=== PATIENT | male | born 1965 | race Caucasian/White ===

== ENCOUNTER 2017-02-16 10:07 | Emergency (ER) | payer MEDICARE, MEDICAID ==
--- NOTE | 2017-02-16 11:08 | UC ---
General HPI - HPI Summary HPI Summary: The patient comes in today for: 1. "low blood pressure and labored breathing": Onset: 7 AM Palliative/provocative: Nothing made his symptoms better or worse. Quality: No problems at this time. Region: Cardiovascular, and pulmonary systems. Severity: no pain. Time: Transient. Associated symptoms: Event: The patient [place]. His usual blood pressure runs: 100-154/59-100 in the 2016 year. In 2014 to 2016: 86-177/53-123. There was several readings this morning. 86/61 and 90/60 at about 7 to 7:30 AM. He was acting "strange" (he was making "vocalizations" like he was going to have a seizure but he did not. He "was not acting like himself." This went on for 30 minutes. When the wire coating machine operator was asked to mimic his "labored breathing" she only made normal breaths but in a way that was more audible like a sigh. He has been acting normally since. He has not had any coughing. No fevers. Non-verbal, but vocal. He is acting normally now. * - History of Current Complaint Chief Complaint: UCGeneralIllness Stated Complaint: LOWERED BLOOD PRESSURE DIFF BREATHING Time Seen by Provider: 02/16/17 10:22 Hx Obtained From: Patient, Family/Hot Box Spotter - Allergy/Home Medications Allergies/Adverse Reactions: Allergies Allergy/AdvReac Type Severity Reaction Status Date / Time Levofloxacin [From Levaquin] Allergy Intermediate Unknown Verified 02/16/17 10: 28 Reaction Details Home Medications: Home Medications Nutritional Supplements [Ernesto] 1 pow PO BID 02/16/17 [History Confirmed ] PMH/Surg Hx/FS Hx/Imm Hx Previously Healthy: No - intellectual development delay, seizures, 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, congenital hydrocephalu - Surgical History Surgical History: Yes Surgery Procedure, Year, and Place: Shunt - Family History Known Family History: Positive: None - Social History Alcohol Use: None Substance Use Type: None Smoking Status (MU): Never Smoked Tobacco Have You Smoked in the Last Year: No Review of Systems Constitutional: Negative Skin: Negative Eyes: Negative ENT: Negative Respiratory: Negative Cardiovascular: Negative Gastrointestinal: Negative All Other Systems Reviewed And Are Negative: Yes Physical Exam Triage Information Reviewed: Yes Completion Of Physical Exam Limited Due To: Altered Mental Status - He only vocalised when I tried to examine him. He was not cooperative. Appearance: Well-Appearing, No Pain Distress Vital Signs: Initial Vital Signs Temp 97.7 F 02/16/17 10:21 Pulse 60 02/16/17 10:21 Resp 16 02/16/17 10:21 BP 83/60 02/16/17 10:21 Pulse Ox 97 02/16/17 10:21 Vital Signs Reviewed: Yes Eyes: Positive: Conjunctiva Clear. Negative: Discharge ENT: Positive: Hearing grossly normal, Other: - Mucous membraines pink and moist. No erythema or edema of the ear canals. Dental: Positive: Other: - No drooling or lip lesions. Neck: Positive: Supple, Nontender Respiratory: Positive: Chest non-tender, Lungs clear, No respiratory distress, No accessory muscle use. Negative: Rhonchi, Wheezing Cardiovascular: Positive: RRR Diagnostics - Laboratory Diagnostic Studies Completed/Ordered: EKG: Rate: 60. Rhythm: sinus. [place]: 30 degrees, no rotation. Ectopy: NOne. Acute changes: None Re-Evaluation - Re-Evaluation First Eval Change: Unchanged - Repeat blood pressure: 90/60 Course/Dx - Course Course Of Treatment: The wire coating machine operator was told that the EKG did not show an obvious reason for his "labored breathing" episode and persistent hypotension and recommended that he be further evaluated. The wire coating machine operator states that they would prefer for the patient to have an ER evaluation at [place]. I talked to the patient's mother on the phone about this. - Differential Dx - Multi-Symptom Provider Diagnoses: Hypotension. Dyspnea episode resolved. - Physician Notifications Discussed Patient Care With: Sonali Fonseca NP [facility]. Time Discussed With Above Provider: 12:23 Discharge - Discharge Plan Condition: Stable Disposition: AGAINST MEDICAL ADVICE Additional Instructions: Please go directly to the [facility] at this time.
[2017-02-16 12:27] VITALS: BP 84/57
== END 2017-02-16 12:46 | disposition short-term general hospital (02) ==
LOC: UCCORT 10:07
DX: I95.9 Hypotension, unspecified (principal)
CPT/HCPCS: 93005; 99213; G0463

== ENCOUNTER 2017-02-19 17:50 | Inpatient (IN) | payer MEDICARE, MEDICAID ==
[2017-02-19 18:43] LABS: Hematocrit 42 % (42-52); Hemoglobin 14.1 g/dl (14.0-18.0); Mean Corpuscular HGB Conc 34 g/dl (31-36); Mean Corpuscular Hemoglobin 32 pg (27-31); Mean Corpuscular Volume 96 fL (80-94); Mean Platelet Volume 7 um3 (7.4-10.4); Red Blood Count 4.35 10^6/ul (4.0-5.4); Red Cell Distribution Width 14 % (10.5-15)
--- NOTE | 2017-02-19 18:49 | RAD ---
HISTORY: Shortness of breath COMPARISONS: February 17, 2013 VIEWS:1: Single frontal portable view of the chest at 6:36 PM FINDINGS: LINES AND TUBES: Shunt tubing is noted along the right chest CARDIOMEDIASTINAL SILHOUETTE: The cardiac silhouette is enlarged. The cardiomediastinal silhouette is otherwise normal for portable technique. PLEURA: There is a large right pleural effusion LUNG PARENCHYMA: There is a diffuse reticular pattern with prominence of the central pulmonary vasculature ABDOMEN: The upper abdomen is clear. There is no subphrenic gas. BONES AND SOFT TISSUES: No bone or soft tissue abnormalities are noted. IMPRESSION: 1. CARDIOMEGALY WITH PULMONARY INTERSTITIAL EDEMA. 2. LARGE RIGHT EFFUSION
[2017-02-19] MEDS ORDERED: Azithromycin IV(*) 250 MG in NS 0.9% 250 ML* 250 ML IVPB ONE (18:54)
[2017-02-19] MEDS ORDERED: Azithromycin IV(*) 500 MG in NS 0.9% 250 ML* 250 ML IVPB ONE (18:55)
[2017-02-19] MEDS ORDERED: cefTRIAXone(*) 1 GM in NS 0.9% 50 ML* 50 ML IVPB ONE (18:55)
--- NOTE | 2017-02-19 19:47 | HP ---
H&P (Free Text) History and Physical: PCP: Pearl Zaman MD Neurology: Tyson Araiza MD Date/Time of Evaluation: 02/19/20171944 CC: "not breathing for 5 minutes" HPI: [facility]di [facility] 51[facility] profound congenital mental retardation who was admitted to [facility] through today for pneumonia. He was discharged back to the [facility] this AM. His aide is present who states that he was being weighed in a [place] lift and became flushed in the face which is not unusual for him as he dislikes being in the lift. However, upon exiting the lift he appeared to be not breathing for ~5minutes, but was able to open his eyes and produce sound. 911 was called and advised against CPR. EMS arrived and transported to [facility] for evaluation. Their report is not currently available, but per ED staff they did not report respiratory distress upon arrival. 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 x4 seizure disorder profoundly mentally challenged Ambulatory Orders Chlorhexidine MOUTHWASH 0.12%* [Peridex Mouth Wash 0.12%*] 12/31/12 carBAMazepine TAB(*) [Tegretol TAB(*)] 400 mg PO BID 12/31/12 Calcium [Elite Calcium] 500 mg PO BID 07/17/16 Cholecalciferol [Vitamin D3] 1,000 unit PO DAILY 07/17/16 Folic Acid 1 mg PO DAILY 07/17/16 Multiple Vitamins W/ Minerals [Multivitamin Men] 1 tab 07/17/16 Nutritional Supplements [Ernesto] 1 pow PO BID 02/16/17 carBAMazepine TAB(*) 600 mg PO DAILY 02/19/17 Allergies Levofloxacin [From Levaquin] Allergy (Intermediate, Verified 02/16/17 10:28) Unknown Reaction Details SocHx: not tobacco, alcohol, or recreational drug HX; lives at the [facility] , non-ambulatory at baseline; full code status FamHx: positive for HTN ROS: as above, otherwise reviewed and all were negative Constitutional: NAD, normally developed, overweight white male vitals: Vital Signs Temp 36.2 C 02/19/17 18:09 Pulse 59 02/19/17 18:09 Resp 18 02/19/17 18:09 BP 161/101 02/19/17 18:09 Pulse Ox 95 02/19/17 18:39 Intake & Output 02/18/17 02/19/17 02/19/17 23:59 11:59 23:59 Weight 61.235 kg HEENM: atraumatic, microcephaly; sclera/conjunctiva: non-icteric/clear; hearing : unable to adequately assess; oropharynx: clear, mucosa tacky Neck: soft tissue: no nuchal rigidity; thyroid: normal Pulmonary: poor inspiratory effort, diminished B bases, fair aeration, no accessory muscle use CV: RR/RR, normal S1S2, no carotid bruit, no jugular venous distention, 2+ B DP/ PT, no edema Abdominal: soft, non-distended, non-tender, no rebound/guarding/rigidity, normoactive bowel sounds, no hepatosplenomegaly or masses, no costovertebral angle tenderness Musculoskeletal: general: grossly intact; gait: non-ambulatory at baseline Integumental: normal appearance and texture of exposed skin Psychiatric orientation: AA & disoriented affect: calm mood: acquiescent eye contact: poor content: absent responses: guttural vocalizations insight: poor to absent Testing: Lab Results 02/19/17 02/19/17 02/19/17 Range/Units 18:25 18:25 18:25 WBC 7.0 (3.5-10.8) 10^3/ul RBC 4.35 (4.0-5.4) 10^6/ul Hgb 14.1 (14.0-18.0) g/dl Hct 42 (42-52) % MCV 96 H (80-94) fL MCH 32 H (27-31) pg MCHC 34 (31-36) g/dl RDW 14 (10.5-15) % Plt Count 152 (150-450) 10^3/ul MPV 7 L (7.4-10.4) um3 Neut % (Auto) 77.7 (38-83) % Lymph % (Auto) 12.6 L (25-47) % Izard % (Auto) 5.8 (1-9) % Eos % (Auto) 2.7 (0-6) % Baso % (Auto) 1.2 (0-2) % Absolute Neuts (auto) 5.5 (1.5-7.7) 10^3/ul Absolute Lymphs (auto) 0.9 L (1.0-4.8) 10^3/ul Absolute Monos (auto) 0.4 (0-0.8) 10^3/ul Absolute Eos (auto) 0.2 (0-0.6) 10^3/ul Absolute Basos (auto) 0.1 (0-0.2) 10^3/ul Absolute Nucleated RBC 0 10^3/ul Nucleated RBC % 0 Sodium (133-145) mmol/L Potassium (3.5-5.0) mmol/L Chloride (101-111) mmol/L Carbon Dioxide (22-32) mmol/L Anion Gap (2-11) mmol/L BUN (6-24) mg/dL Creatinine (0.67-1.17) mg/dL Est GFR ( Amer) (>60) Est GFR (Non-Af Amer) (>60) BUN/Creatinine Ratio (8-20) Glucose (70-100) mg/dL Lactic Acid 0.8 (0.5-2.0) mmol/L Calcium (8.6-10.3) mg/dL Total Bilirubin (0.2-1.0) mg/dL AST (13-39) U/L ALT (7-52) U/L Alkaline Phosphatase (34-104) U/L Total Creatine Kinase (10-223) U/L Troponin I (<0.04) ng/mL C-Reactive Protein (< 5.00) mg/L B-Natriuretic Peptide 121 H ( - 100) pg/mL Total Protein (6.4-8.9) g/dL Albumin (3.2-5.2) g/dL Globulin (2-4) g/dL Albumin/Globulin Ratio (1-3) /06/28 Range/Units 19:30 WBC (3.5-10.8) 10^3/ul RBC (4.0-5.4) 10^6/ul Hgb (14.0-18.0) g/dl Hct (42-52) % MCV (80-94) fL MCH (27-31) pg MCHC (31-36) g/dl RDW (10.5-15) % Plt Count (150-450) 10^3/ul MPV (7.4-10.4) um3 Neut % (Auto) (38-83) % Lymph % (Auto) (25-47) % Izard % (Auto) (1-9) % Eos % (Auto) (0-6) % Baso % (Auto) (0-2) % Absolute Neuts (auto) (1.5-7.7) 10^3/ul Absolute Lymphs (auto) (1.0-4.8) 10^3/ul Absolute Monos (auto) (0-0.8) 10^3/ul Absolute Eos (auto) (0-0.6) 10^3/ul Absolute Basos (auto) (0-0.2) 10^3/ul Absolute Nucleated RBC 10^3/ul Nucleated RBC % Sodium 130 L (133-145) mmol/L Potassium 4.0 (3.5-5.0) mmol/L Chloride 100 L (101-111) mmol/L Carbon Dioxide 25 (22-32) mmol/L Anion Gap 5 (2-11) mmol/L BUN 6 (6-24) mg/dL Creatinine 0.40 L (0.67-1.17) mg/dL Est GFR ( Amer) 289.4 (>60) Est GFR (Non-Af Amer) 225.0 (>60) BUN/Creatinine Ratio 15.0 (8-20) Glucose 91 (70-100) mg/dL Lactic Acid (0.5-2.0) mmol/L Calcium 8.3 L (8.6-10.3) mg/dL Total Bilirubin 0.50 (0.2-1.0) mg/dL AST 18 (13-39) U/L ALT 17 (7-52) U/L Alkaline Phosphatase 88 (34-104) U/L Total Creatine Kinase 103 (10-223) U/L Troponin I 0.01 (<0.04) ng/mL C-Reactive Protein 11.75 H (< 5.00) mg/L B-Natriuretic Peptide ( - 100) pg/mL Total Protein 5.9 L (6.4-8.9) g/dL Albumin 3.2 (3.2-5.2) g/dL Globulin 2.7 (2-4) g/dL Albumin/Globulin Ratio 1.2 (1-3) ECG, personally reviewed: sinus RBBB rate 67, no ischemia CXR, personally reviewed: IMPRESSION: 1. CARDIOMEGALY WITH PULMONARY INTERSTITIAL EDEMA. 2. LARGE RIGHT EFFUSION Impression: 51M presenting with brief episode of AMS & SOB discharged this AM from [place] after 3days TX for R pneumonia & pleural effusion DIAGNOSIS & PLAN Primary RLL pneumonia w/ large para-pneumonic effusion : given lactic acid of 0.8, doubt the history of "not breathing x5 minutes" : obtain records from [facility] : IV ceftriaxone & azithromycin : IVFs : supplemental oxygen : hold blood & sputum CX as he has reportedly been on ABX x3 days : check urine Legionella & S pneumo antigens : bedside dysphagia screening : consider pulmonology consult, if clinically warranted upon review of above : supportive care Secondary seizure disorder : continue carbamazepine once reconciled hydrcephalus HX 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
[2017-02-19 19:59] LABS: Albumin 3.2 g/dL (3.2-5.2); C Reactive Protein 11.75 mg/L (< 5.00); Calcium 8.3 mg/dL (8.6-10.3); EGFR African American 289.4 (>60); Globulin 2.7 g/dL (2-4); Total Bilirubin 0.5 mg/dL (0.2-1.0); Total Protein 5.9 g/dL (6.4-8.9)
[2017-02-19 20:02] LABS: Troponin I 0.01 ng/mL (<0.04)
[2017-02-19] MEDS ORDERED: Acetaminophen TAB* 325 MG PO PRN (20:41)
[2017-02-19] MEDS ORDERED: Ondansetron INJ* 2 MG/ML VIAL IV PRN (20:42)
[2017-02-19] MEDS ORDERED: carBAMazepine TAB(*) 200 MG PO SCH (21:00)
[2017-02-19] MEDS: Docusate CAP* 100 MG PO SCH (22:29)
[2017-02-19] MEDS: [UNRECOGNIZED DRUG - OTHER] PO SCH (22:33)
[2017-02-20] MEDS: Heparin VIAL(*) 5000 UNITS/ML VIAL (FIVE THOUSAND) SUBCUT SCH ×3 (05:12→21:30)
[2017-02-20] MEDS: Omeprazole CAP* 20 MG PO SCH (05:12)
[2017-02-20] MEDS: NS 0.9% 1000 ML* 1,000 ML IV SCH ×2 (05:40→17:23)
[2017-02-20] MEDS: carBAMazepine TAB(*) 200 MG PO SCH ×3 (06:19→18:10)
[2017-02-20 06:31] LABS: Hematocrit 38 % (42-52); Mean Corpuscular HGB Conc 34 g/dl (31-36); Mean Corpuscular Hemoglobin 33 pg (27-31); Mean Corpuscular Volume 96 fL (80-94); Mean Platelet Volume 7 um3 (7.4-10.4); Red Blood Count 3.97 10^6/ul (4.0-5.4); Red Cell Distribution Width 13 % (10.5-15); White Blood Count 6.3 10^3/ul (3.5-10.8)
[2017-02-20 06:33] LABS: BUN/Creatinine Ratio 10.8 (8-20); Calcium 8.2 mg/dL (8.6-10.3); EGFR African American 316.6 (>60); EGFR Non-African American 246.2 (>60); Potassium 3.6 mmol/L (3.5-5.0)
[2017-02-20] MEDS: [UNRECOGNIZED DRUG - OTHER] PO SCH (09:51)
[2017-02-20] MEDS: Docusate CAP* 100 MG PO SCH ×2 (09:53→20:36)
--- NOTE | 2017-02-20 17:22 | PN ---
Subjective Date of Service: 02/20/17 Interval History: . Interviewed and examined patient at bedside; Discussed case with Dr. Palmer ; Reviewed previous notes and radiology results; Also spoke with patient's mother and the staff at [facility]. Despite how "good" patient looks to me at present (O2 sats in high 90's on RA and breathing comfortably), the staff insist patient had outright respiratory arrest and looked horribly last night. For that reason alone, will keep patient an additional night to observe for similar event that was described. Also, mother questions HEEL VARNISHER shunt, which she states at one point was draining into his thorax...which might explain his R pleural effusion. Will get neurosurgery to evaluate patient as well. Family History: Unchanged from Admission Social History: Unchanged from Admission Past Medical History: Unchanged from Admission Objective Active Medications: . Acetaminophen (Tylenol Tab*) 650 mg PO Q6H PRN PRN Reason: FEVER/PAIN Carbamazepine (Tegretol Tab(*)) 600 mg PO 1900 [facility] Carbamazepine (Tegretol Tab(*)) 400 mg PO 0700,1200 [facility] Last Admin: 02/20/17 12:03 Dose: 400 mg Docusate Sodium (Colace Cap*) 200 mg PO BID [facility] Last Admin: 02/20/17 09:53 Dose: 200 mg Heparin Sodium (Porcine) (Heparin Vial(*)) 5,000 units SUBCUT Q8HR [facility] Last Admin: 02/20/17 13:52 Dose: 5,000 units Sodium Chloride (Ns 0.9% 1000 Ml*) 1,000 mls @ 125 mls/hr IV PER RATE [facility] Last Admin: 02/20/17 05:40 Dose: 125 mls/hr Ceftriaxone Sodium 1,000 mg/ (Sodium Chloride) 50 mls @ 200 mls/hr IVPB Q24H [facility] Azithromycin 500 mg/ Sodium (Chloride) 250 mls @ 250 mls/hr IVPB Q24H [facility] Melatonin (Melatonin (Nf)) 3 mg PO BEDTIME PRN; Protocol PRN Reason: Sleep Morphine Sulfate (Morphine Inj (Syringe)*) 1 mg IV Q2H PRN PRN Reason: air hunger/SOB Omeprazole (Prilosec Cap*) 20 mg PO DAILY@0600 [facility] Last Admin: 02/20/17 05:12 Dose: 20 mg Ondansetron HCl (Zofran Inj*) 4 mg IV Q6H PRN PRN Reason: NAUSEA . Vital Signs 02/20/17 15:38 Temperature 98.4 F Pulse Rate 86 Respiratory 16 Rate Blood Pressure 140/98 (mmHg) O2 Sat by Pulse 97 Oximetry Oxygen Devices in Use Now: None Appearance: NAD; DD Eyes: No Scleral Icterus Ears/Nose/Mouth/Throat: Clear Oropharnyx Neck: Trachea Midline, - - HEEL VARNISHER shunt evident Respiratory: - - diminished at R base c/w pleural effusion, otherwise clear! Cardiovascular: RRR Abdominal: No Hepatosplenomegaly Lymphatic: No Cervical Adenopathy Extremities: No Edema Skin: No Rash or Ulcers Neurological: - - DD noted, not communicative Lines/Tubes/Other Access: Clean, Dry and Intact Peripheral IV Nutrition: Taking PO's Result Diagrams: 02/20/17 06:05 02/20/17 06:05 Assess/Plan/Problems-Billing . Assessment: 51 yo man with DD, now with reported respiratory arrest, though he seems quite stable here. Patient recently admitted for PNA and R pleural effusion, though seems to be doing OK at present. No report of pulselessness. DDX: Vasovagal event, Apneic event, Mucus plug, Aspiration, Seizure. Current Medications: - Acetaminophen (Tylenol Tab) 650 mg PO Q6H PRN FEVER/PAIN - Carbamazepine (Tegretol Tab) 600 mg PO 1900 [facility] - Carbamazepine (Tegretol Tab) 400 mg PO 0700,1200 [facility] - Docusate Sodium (Colace Cap) 200 mg PO BID - Heparin Sodium (Porcine) (Heparin Vial) 5,000 units SUBCUT Q8HR - NS @ 125 mls/hr IV - Ceftriaxone 1,000 mg IVPB Q24H - Azithromycin 500 mg IVPB Q24H - Melatonin (Melatonin) 3 mg PO BEDTIME PRN Sleep - Morphine Sulfate (Morphine Inj (Syringe)) 1 mg IV Q2H PRN air hunger/SOB - Omeprazole (Prilosec Cap) 20 mg PO DAILY - Ondansetron HCl (Zofran Inj) 4 mg IV Q6H PRN NAUSEA . - Patient Problems (1) Respiratory arrest Current Visit: Yes Status: Acute Priority: High Code(s): R09.2 - RESPIRATORY ARREST Comment: - CXR shows pleural effusion -- is this related to this presentation? pulmonary htn? - Is the pleural effusion related to the HEEL VARNISHER shunt? -- rare, but possible-- will d/w radiology and neurosurgery. - Was the event in question a vasovagal or apneic episode or transient event ( i.e. mucus plug that dislodged, or aspiration event) such that it is resolved? (2) Cognitive developmental delay Current Visit: Yes Status: Acute Code(s): F81.9 - DEVELOPMENTAL DISORDER OF SCHOLASTIC SKILLS, UNSPECIFIED SNOMED Code(s): 796997692 (3) Seizure disorder Current Visit: Yes Status: Acute Code(s): G40.909 - EPILEPSY, UNSP, NOT INTRACTABLE, WITHOUT STATUS EPILEPTICUS SNOMED Code(s): 631559392
[2017-02-20 18:17] LABS: Carbamazepine 9.1 mcg/mL (4.0-12.0)
--- NOTE | 2017-02-20 18:28 | ED ---
Lorne Torres Aidan, scribed for Lul Diamond MD on 02/19/17 at 1826 . Shortness of Breath - HPI Summary HPI Summary: 51 y/o male presents to the ED via EMS with a complaint of acute, constant, moderate SOB according to EMS. He is coming from the [facility] in [facility]. Currently, he is hypertensive. The patient is nonverbal and developmentally disabled. 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 EMS, Still Present Timing: Constant Current Severity: Moderate Dyspnea At: Rest Aggrevating Factors: Nothing - unknown Alleviating Factors: Nothing - unknown Associated Signs & Symptoms: Negative - Pt is hypertensive - Allergy/Home Medications Allergies/Adverse Reactions: Allergies Allergy/AdvReac Type Severity Reaction Status Date / Time Levofloxacin [From Levaquin] Allergy Intermediate Unknown Verified 02/16/17 10: 28 Reaction Details Home Medications: Home Medications carBAMazepine TAB(*) 600 mg PO DAILY 02/19/17 [History Confirmed 02/19/17] PMH/Surg Hx/FS Hx/Imm Hx Previously Healthy: No - seizure disorder, hydrocephalus, constipation Neurological History: Reports: Hx Seizures - MR, SPEECH THERAPIST SHUNT, HYDROCEPHALUS, HYPONATREMIA - Surgical History Surgery Procedure, Year, and Place: Shunt Infectious Disease History: No Infectious Disease History: Denies: Traveled Outside the [place] in Last 30 Days - Family History Known Family History: Positive: Other - unknown, level 5 caviat - Social History Occupation: Disabled Lives: Assisted Living Alcohol Use: None Substance Use Type: Reports: None Smoking Status (MU): Never Smoked Tobacco Have You Smoked in the Last Year: No Review of Systems Constitutional: Negative Eyes: Negative ENT: Negative Positive: Other - hypertensive. Negative: Palpitations, Chest Pain Positive: Shortness Of Breath. Negative: Cough Gastrointestinal: Negative Genitourinary: Negative Musculoskeletal: Negative Skin: Negative Neurological: Negative Psychological: Normal All Other Systems Reviewed And Are Negative: Yes Physical Exam - Summary Physical Exam Summary: VITAL SIGNS: Reviewed. GENERAL: Patient is a well-developed and nourished (MALE OR FEMALE) who is lying comfortable in the stretcher. Patient is not in any acute respiratory distress. Patient is nonverbal. HEAD AND FACE: No signs of trauma. No ecchymosis, hematomas. No sinus tenderness. Positive microcephalus EYES: PERRLA, EOMI x 2, No injected conjunctiva, no nystagmus. EARS: Hearing grossly intact. Ear canals and tympanic membranes are within normal limits. MOUTH: Oropharynx within normal limits. NECK: Supple, trachea is midline, no adenopathy, no JVD, no carotid bruit, no c- spine tenderness, neck with full ROM. CHEST: Symmetric, no tenderness at palpation LUNGS: Clear to auscultation bilaterally. No wheezing, however there are crackles at the base of the lungs. CVS: Regular rate and rhythm, S1 and S2 present, no murmurs or gallops appreciated. ABDOMEN: Soft, non-tender. No signs of distention. No rebound no guarding, and no masses palpated. Bowel sounds are normal. EXTREMITIES: No cyanosis or clubbing. 1+ edema in legs bilaterally. He is contracted at his upper extremities. NEURO: Alert and oriented x 3. No acute neurological deficits. Speech is normal and follows commands. SKIN: Dry and warm Triage Information Reviewed: Yes Vital Signs On Initial Exam: Initial Vitals Temp Pulse Resp BP Pulse Ox 97.1 F 59 18 161/101 94 02/19/17 18:09 02/19/17 18:09 02/19/17 18:09 02/19/17 18:09 02/19/17 18:09 Vital Signs Reviewed: Yes Diagnostics - Vital Signs Vital Signs Temp Pulse Resp BP Pulse Ox 02/19/17 18:09 97.1 F 59 18 161/101 94 - Laboratory Lab Results: Lab Results 02/19/17 02/19/17 02/19/17 Range/Units 18:25 18:25 18:25 WBC 7.0 (3.5-10.8) 10^3/ul RBC 4.35 (4.0-5.4) 10^6/ul Hgb 14.1 (14.0-18.0) g/dl Hct 42 (42-52) % MCV 96 H (80-94) fL MCH 32 H (27-31) pg MCHC 34 (31-36) g/dl RDW 14 (10.5-15) % Plt Count 152 (150-450) 10^3/ul MPV 7 L (7.4-10.4) um3 Neut % (Auto) 77.7 (38-83) % Lymph % (Auto) 12.6 L (25-47) % Barry % (Auto) 5.8 (1-9) % Eos % (Auto) 2.7 (0-6) % Baso % (Auto) 1.2 (0-2) % Absolute Neuts (auto) 5.5 (1.5-7.7) 10^3/ul Absolute Lymphs (auto) 0.9 L (1.0-4.8) 10^3/ul Absolute Monos (auto) 0.4 (0-0.8) 10^3/ul Absolute Eos (auto) 0.2 (0-0.6) 10^3/ul Absolute Basos (auto) 0.1 (0-0.2) 10^3/ul Absolute Nucleated RBC 0 10^3/ul Nucleated RBC % 0 Sodium (133-145) mmol/L Potassium (3.5-5.0) mmol/L Chloride (101-111) mmol/L Carbon Dioxide (22-32) mmol/L Anion Gap (2-11) mmol/L BUN (6-24) mg/dL Creatinine (0.67-1.17) mg/dL Est GFR ( Amer) (>60) Est GFR (Non-Af Amer) (>60) BUN/Creatinine Ratio (8-20) Glucose (70-100) mg/dL Lactic Acid 0.8 (0.5-2.0) mmol/L Calcium (8.6-10.3) mg/dL Total Bilirubin (0.2-1.0) mg/dL AST (13-39) U/L ALT (7-52) U/L Alkaline Phosphatase (34-104) U/L Total Creatine Kinase (10-223) U/L Troponin I (<0.04) ng/mL C-Reactive Protein (< 5.00) mg/L B-Natriuretic Peptide 121 H ( - 100) pg/mL Total Protein (6.4-8.9) g/dL Albumin (3.2-5.2) g/dL Globulin (2-4) g/dL Albumin/Globulin Ratio (1-3) Carbamazepine 02/19/17 02/20/17 02/20/17 Range/Units 19:30 06:05 06:05 WBC 6.3 (3.5-10.8) 10^3/ul RBC 3.97 L (4.0-5.4) 10^6/ul Hgb 13.0 L (14.0-18.0) g/dl Hct 38 L (42-52) % MCV 96 H (80-94) fL MCH 33 H (27-31) pg MCHC 34 (31-36) g/dl RDW 13 (10.5-15) % Plt Count 136 L (150-450) 10^3/ul MPV 7 L (7.4-10.4) um3 Neut % (Auto) (38-83) % Lymph % (Auto) (25-47) % Barry % (Auto) (1-9) % Eos % (Auto) (0-6) % Baso % (Auto) (0-2) % Absolute Neuts (auto) (1.5-7.7) 10^3/ul Absolute Lymphs (auto) (1.0-4.8) 10^3/ul Absolute Monos (auto) (0-0.8) 10^3/ul Absolute Eos (auto) (0-0.6) 10^3/ul Absolute Basos (auto) (0-0.2) 10^3/ul Absolute Nucleated RBC 10^3/ul Nucleated RBC % Sodium 130 L 130 L (133-145) mmol/L Potassium 4.0 3.6 (3.5-5.0) mmol/L Chloride 100 L 100 L (101-111) mmol/L Carbon Dioxide 25 25 (22-32) mmol/L Anion Gap 5 5 (2-11) mmol/L BUN 6 4 L (6-24) mg/dL Creatinine 0.40 L 0.37 L (0.67-1.17) mg/dL Est GFR ( Amer) 289.4 316.6 (>60) Est GFR (Non-Af Amer) 225.0 246.2 (>60) BUN/Creatinine Ratio 15.0 10.8 (8-20) Glucose 91 90 (70-100) mg/dL Lactic Acid (0.5-2.0) mmol/L Calcium 8.3 L 8.2 L (8.6-10.3) mg/dL Total Bilirubin 0.50 (0.2-1.0) mg/dL AST 18 (13-39) U/L ALT 17 (7-52) U/L Alkaline Phosphatase 88 (34-104) U/L Total Creatine Kinase 103 (10-223) U/L Troponin I 0.01 (<0.04) ng/mL C-Reactive Protein 11.75 H (< 5.00) mg/L B-Natriuretic Peptide ( - 100) pg/mL Total Protein 5.9 L (6.4-8.9) g/dL Albumin 3.2 (3.2-5.2) g/dL Globulin 2.7 (2-4) g/dL Albumin/Globulin Ratio 1.2 (1-3) Carbamazepine Pending Result Diagrams: 02/20/17 06:05 02/20/17 06:05 Lab Statement: Any lab studies that have been ordered have been reviewed, and results considered in the medical decision making process. Course/Dx - Course Course Of Treatment: Sign out to Dr. Brown. Assessment/Plan: ef51 y/o male presents to the ED via EMS with a complaint of acute, constant, moderate SOB according to EMS. He is coming from the [facility] in [place]. Currently, he is stable. The patient is nonverbal and developmentally disabled. In the ED course an IV access was obtained. Patient was placed in a field engineer. Patient was started with IV fluids. Labs are pending. EKG shows a NSR at 67 BPM and RBBB. CXR impression: Large pleural effusion. Cardiomegaly and edema. . In the ED course he was started with Levaquin since I believe he also developing Pneumonia. I discussed with Dr. Palmer who will accept the patient for admission but still waiting for lab work. Patient will be signed out to Dr. Brown. - Diagnoses Provider Diagnoses: Pleural effusion, Pneumonia Discharge - Discharge Plan Condition: Stable Disposition: OTHER Discharge Disposition Comment: Sign out to Dr. Brown. The documentation as recorded by the Lorne lares Aidan accurately reflects the service I personally performed and the decisions made by me, Lul Diamond MD.
[2017-02-20] MEDS: cefTRIAXone VIAL(*) 1,000 MG in NS 0.9% 50 ML* 50 ML IVPB SCH (19:20)
[2017-02-20] MEDS: Morphine INJ* 2 MG/ML 1 ML SYRINGE IV PRN (19:27)
[2017-02-20] MEDS: Azithromycin IV(*) 500 MG in NS 0.9% 250 ML* 250 ML IVPB SCH (20:11)
[2017-02-21] MEDS: NS 0.9% 1000 ML* 1,000 ML IV SCH ×3 (02:50→16:38)
[2017-02-21] MEDS: Morphine INJ* 2 MG/ML 1 ML SYRINGE IV PRN ×2 (02:50→06:16)
[2017-02-21] MEDS: Heparin VIAL(*) 5000 UNITS/ML VIAL (FIVE THOUSAND) SUBCUT SCH ×3 (05:20→23:00)
[2017-02-21] MEDS: Omeprazole CAP* 20 MG PO SCH (05:21)
[2017-02-21 06:12] LABS: Venous Bicarbonate HCO3 26.4 mmol/L (24-28)
[2017-02-21 06:16] LABS: Hematocrit 38 % (42-52); Hemoglobin 12.9 g/dl (14.0-18.0); Mean Corpuscular HGB Conc 35 g/dl (31-36); Mean Corpuscular Hemoglobin 33 pg (27-31); Mean Corpuscular Volume 95 fL (80-94); Mean Platelet Volume 7 um3 (7.4-10.4); Red Blood Count 3.95 10^6/ul (4.0-5.4); Red Cell Distribution Width 13 % (10.5-15); White Blood Count 4.6 10^3/ul (3.5-10.8)
[2017-02-21] MEDS: carBAMazepine TAB(*) 200 MG PO SCH ×4 (06:28→20:54)
[2017-02-21 06:29] LABS: BUN/Creatinine Ratio 11.4 (8-20); EGFR African American 337.6 (>60); EGFR Non-African American 262.5 (>60); Potassium 3.7 mmol/L (3.5-5.0)
[2017-02-21 07:00] LABS: Carbamazepine 11.8 mcg/mL (4.0-12.0)
[2017-02-21] MEDS: Docusate CAP* 100 MG PO SCH ×2 (09:39→20:47)
[2017-02-21] MEDS ORDERED: Perflutren Lipid Microsphere* 3 ML VIAL ONE (10:20)
--- NOTE | 2017-02-21 13:06 | ECHO ---
Patient: MICHAEL THOMAS [facility] Rec#: [id number] : 1965 Date: 02/21/2017 Age: 51y Height: 154.94 cm / 61.0 in Weight: 85.73 kg / 188.9 lbs Sex: M BSA: 1.84 Room#: [facility] Admit Date#: 02/20/2017 Type: Inpatient Referring: Roderick Frost MD Reading: Luiz Read MD Hammer Runner: Andreea Christianson STEPHAN CC: Andrea Zaman MD Transthoracic Echocardiogram Indication: SOB BP: 149/94 HR: 69 Rhythm: NSR Findings History: Profounf congenital mental retardation, recent pneumonia. Technical Comments: The study is technically limited due to patient body habitus. Completed at 1106. Left Ventricle: The left ventricular chamber size is normal. Mild to moderate concentric left ventricular hypertrophy is observed. Global left ventricular wall motion and contractility are within normal limits. The estimated ejection fraction is 55-60%. The patient was unable to perform a Valsalva maneuver. Left Atrium: The left atrial chamber size is normal. Right Ventricle: The right ventricular cavity size is normal. The right ventricular global systolic function is normal. Right Atrium: The right atrial cavity size is normal. Aortic Valve: The aortic valve is trileaflet. There is no evidence of aortic valve thickening. There is no evidence of aortic regurgitation. There is no evidence of aortic stenosis. Mitral Valve: The mitral valve leaflets are mildly thickened. There is moderate mitral regurgitation. The mitral regurgitant jet is centrally directed. There is no evidence of mitral stenosis. Tricuspid Valve: The tricuspid valve leaflets are normal. There is moderate tricuspid regurgitation. There is evidence of moderate pulmonary hypertension. There is no tricuspid stenosis. Pulmonic Valve: The pulmonic valve appears normal. There is trace to mild pulmonic regurgitation. There is no pulmonic stenosis. Pericardium: A trivial pericardial effusion is visualized. There are no signs of significant hemodynamic compromise. A pericardial fat pad is visualized. Aorta: There is no dilatation of the ascending aorta. The aortic arch is not well visualized. There is no dilation of the aortic root. Pulmonary Artery: The main pulmonary artery appears normal. Venous: The venous system is not well visualized. Contrast: Definity was used to optimize study. A total of 2.5ml used. Intravenous contrast was used to enhance endocardial border definition. Conclusions Mild to moderate concentric left ventricular hypertrophy is observed. Global left ventricular wall motion and contractility are within normal limits. The estimated ejection fraction is 55-60%. The right ventricular global systolic function is normal. There is moderate mitral regurgitation. The mitral regurgitant jet is centrally directed. There is moderate tricuspid regurgitation. There is evidence of moderate pulmonary hypertension. A trivial pericardial effusion is visualized. There is no dilatation of the ascending aorta. Measurements Name Value Normal Range RVIDd (AP) 2D 2.1 cm (0.9 - 2.6) RVDdMajor (2D) 3.1 cm (2.2 - 4.4) RAd ISD 4CH 4.7 cm (3.4 - 4.9) RA (A4C)W 4.3 cm (2.9 - 4.6) IVSd (2D) 1.3 cm (0.6 - 1) LVPWd (2D) 1.4 cm (0.6 - 1) LVIDd (2D) 4.6 cm (3.6 - 5.4) LVIDs (2D) 3.3 cm - LV FS (2D) 28 % (25 - 45) Aortic Annulus 1.8 cm (1.4 - 2.6) Ao root diameter (2D) 3.4 cm (2.1 - 3.5) Ascending Ao 3 cm (2.1 - 3.4) LA dimension (AP) 2D 3.8 cm (2.3 - 3.8) LAd ISD 4CH 4.5 cm (2.9 - 5.3) LA ISD 4CH W 3.5 cm (2.5 - 4.5) Name Value Normal Range LA ESV SP 4CH (A/L) 41 ml - LA ESV SP 2CH (A/L) 71 ml - LA ESV BP (A/L) 55 ml - LA ESV BP (A/L) index 29.93 ml/m2 - LA ESV SP 4CH (MOD) 34 ml - LA ESV SP 2CH (MOD) 67 ml - Name Value Normal Range MV E-wave Vmax 0.9 m/sec - MV deceleration time 192 msec - MV A-wave Vmax 0.4 m/sec - MV E:A ratio 1.93 ratio - LV septal e' Vmax 0.06 m/sec - LV lateral e' Vmax 0.06 m/sec - LV E:e' septal ratio 15 ratio - LV E:e' lateral ratio 15 ratio - Name Value Normal Range AV Vmax 1 m/sec - AV VTI 21.8 cm - AV peak gradient 3.64 mmHg - AV mean gradient 2.53 mmHg - LVOT Vmax 0.9 m/sec - LVOT VTI 18.2 cm - LVOT peak gradient 3.52 mmHg - LVOT mean gradient 1.63 mmHg - Name Value Normal Range TR Vmax 3.5 m/sec - TR peak gradient 48 mmHg - RAP 8 mmHg - RVSP 56 mmHg - Name Value Normal Range PV Vmax 0.8 m/sec - PV peak gradient 2.72 mmHg -
[2017-02-21 19:27] LABS: FIO2 27
[2017-02-21 19:30] LABS: PCO2 Arterial 66 mmHg (35-45)
[2017-02-21] MEDS: cefTRIAXone VIAL(*) 1,000 MG in NS 0.9% 50 ML* 50 ML IVPB SCH (19:53)
--- NOTE | 2017-02-21 19:53 | PN ---
Subjective Date of Service: 02/21/17 Interval History: . Some respiratory difficulty today culminated with what appears to be a seizure. Post-ictal state noted with poor response of painful stimulus and breathing similar to what was described at [facility] as "respiratory arrest". Auscultation confirmed air movement, but stat ABG demonstrates 7.24/66/73. Will repeat to ensure adequate ventilation. Stat EEG and Brain CT ordered as well. Close monitoring. Laboratory Tests 02/21/17 19:21 ABG pH 7.24 L ABG pCO2 66 H ABG pO2 73 L R pleural effusion --> plan for CT guided aspiration tomorrow pending patient's stability. Neurology urgently consulted and was very helpful in formulating thoughts around this presentation. Family History: Unchanged from Admission Social History: Unchanged from Admission Past Medical History: Unchanged from Admission Objective Active Medications: . Acetaminophen (Tylenol Tab*) 650 mg PO Q6H PRN PRN Reason: FEVER/PAIN Carbamazepine (Tegretol Tab(*)) 600 mg PO 1900 [facility] Last Admin: 02/21/17 18:21 Dose: Not Given Carbamazepine (Tegretol Tab(*)) 400 mg PO 0700,1200 [facility] Last Admin: 02/21/17 13:04 Dose: 400 mg Docusate Sodium (Colace Cap*) 200 mg PO BID [facility] Last Admin: 02/21/17 09:39 Dose: Not Given Heparin Sodium (Porcine) (Heparin Vial(*)) 5,000 units SUBCUT Q8HR [facility] Last Admin: 02/21/17 13:30 Dose: 5,000 units Sodium Chloride (Ns 0.9% 1000 Ml*) 1,000 mls @ 125 mls/hr IV PER RATE [facility] Last Admin: 02/21/17 16:38 Dose: 125 mls/hr Ceftriaxone Sodium 1,000 mg/ (Sodium Chloride) 50 mls @ 200 mls/hr IVPB Q24H [facility] Last Admin: 02/20/17 19:20 Dose: 200 mls/hr Azithromycin 500 mg/ Sodium (Chloride) 250 mls @ 250 mls/hr IVPB Q24H [facility] Last Admin: 02/20/17 20:11 Dose: 250 mls/hr Melatonin (Melatonin (Nf)) 3 mg PO BEDTIME PRN; Protocol PRN Reason: Sleep Morphine Sulfate (Morphine Inj (Syringe)*) 1 mg IV Q2H PRN PRN Reason: air hunger/SOB Last Admin: 02/21/17 06:16 Dose: 1 mg Omeprazole (Prilosec Cap*) 20 mg PO DAILY@0600 [facility] Last Admin: 02/21/17 05:21 Dose: 20 mg Ondansetron HCl (Zofran Inj*) 4 mg IV Q6H PRN PRN Reason: NAUSEA . Vital Signs 02/20/17 02/20/17 02/20/17 20:00 20:27 23:46 Temperature 97.3 F Pulse Rate 73 Respiratory 22 18 20 Rate Blood Pressure 170/95 (mmHg) O2 Sat by Pulse 99 Oximetry 02/21/17 02/21/17 02/21/17 01:19 02:50 03:50 Temperature Pulse Rate Respiratory 20 19 Rate Blood Pressure (mmHg) O2 Sat by Pulse 99 Oximetry Oxygen Devices in Use Now: None Appearance: DD, post-ictal --> respiratory distress. Eyes: No Scleral Icterus Ears/Nose/Mouth/Throat: Clear Oropharnyx Neck: NL Appearance and Movements; NL JVP Respiratory: - - poor air movement Cardiovascular: NL Sounds; No Murmurs; No JVD Abdominal: NL Sounds; No Tenderness; No Distention Lymphatic: No Cervical Adenopathy Extremities: No Edema Skin: No Rash or Ulcers Neurological: Alert and Oriented x 3 Lines/Tubes/Other Access: Clean, Dry and Intact Peripheral IV Nutrition: Taking PO's Result Diagrams: 02/21/17 05:58 02/21/17 05:58 Additional Lab and Data: Lab Results 02/19/17 02/19/17 02/19/17 Range/Units 18:25 18:25 18:25 WBC 7.0 (3.5-10.8) 10^3/ul RBC 4.35 (4.0-5.4) 10^6/ul Hgb 14.1 (14.0-18.0) g/dl Hct 42 (42-52) % MCV 96 H (80-94) fL MCH 32 H (27-31) pg MCHC 34 (31-36) g/dl RDW 14 (10.5-15) % Plt Count 152 (150-450) 10^3/ul MPV 7 L (7.4-10.4) um3 Neut % (Auto) 77.7 (38-83) % Lymph % (Auto) 12.6 L (25-47) % Blount % (Auto) 5.8 (1-9) % Eos % (Auto) 2.7 (0-6) % Baso % (Auto) 1.2 (0-2) % Absolute Neuts (auto) 5.5 (1.5-7.7) 10^3/ul Absolute Lymphs (auto) 0.9 L (1.0-4.8) 10^3/ul Absolute Monos (auto) 0.4 (0-0.8) 10^3/ul Absolute Eos (auto) 0.2 (0-0.6) 10^3/ul Absolute Basos (auto) 0.1 (0-0.2) 10^3/ul Absolute Nucleated RBC 0 10^3/ul Nucleated RBC % 0 Sodium (133-145) mmol/L Potassium (3.5-5.0) mmol/L Chloride (101-111) mmol/L Carbon Dioxide (22-32) mmol/L Anion Gap (2-11) mmol/L BUN (6-24) mg/dL Creatinine (0.67-1.17) mg/dL Est GFR ( Amer) (>60) Est GFR (Non-Af Amer) (>60) BUN/Creatinine Ratio (8-20) Glucose (70-100) mg/dL Lactic Acid 0.8 (0.5-2.0) mmol/L Calcium (8.6-10.3) mg/dL Total Bilirubin (0.2-1.0) mg/dL AST (13-39) U/L ALT (7-52) U/L Alkaline Phosphatase (34-104) U/L Total Creatine Kinase (10-223) U/L Troponin I (<0.04) ng/mL C-Reactive Protein (< 5.00) mg/L B-Natriuretic Peptide 121 H ( - 100) pg/mL Total Protein (6.4-8.9) g/dL Albumin (3.2-5.2) g/dL Globulin (2-4) g/dL Albumin/Globulin Ratio (1-3) Carbamazepine 02/19/17 02/20/17 02/20/17 Range/Units 19:30 06:05 06:05 WBC 6.3 (3.5-10.8) 10^3/ul RBC 3.97 L (4.0-5.4) 10^6/ul Hgb 13.0 L (14.0-18.0) g/dl Hct 38 L (42-52) % MCV 96 H (80-94) fL MCH 33 H (27-31) pg MCHC 34 (31-36) g/dl RDW 13 (10.5-15) % Plt Count 136 L (150-450) 10^3/ul MPV 7 L (7.4-10.4) um3 Neut % (Auto) (38-83) % Lymph % (Auto) (25-47) % Blount % (Auto) (1-9) % Eos % (Auto) (0-6) % Baso % (Auto) (0-2) % Absolute Neuts (auto) (1.5-7.7) 10^3/ul Absolute Lymphs (auto) (1.0-4.8) 10^3/ul Absolute Monos (auto) (0-0.8) 10^3/ul Absolute Eos (auto) (0-0.6) 10^3/ul Absolute Basos (auto) (0-0.2) 10^3/ul Absolute Nucleated RBC 10^3/ul Nucleated RBC % Sodium 130 L 130 L (133-145) mmol/L Potassium 4.0 3.6 (3.5-5.0) mmol/L Chloride 100 L 100 L (101-111) mmol/L Carbon Dioxide 25 25 (22-32) mmol/L Anion Gap 5 5 (2-11) mmol/L BUN 6 4 L (6-24) mg/dL Creatinine 0.40 L 0.37 L (0.67-1.17) mg/dL Est GFR ( Amer) 289.4 316.6 (>60) Est GFR (Non-Af Amer) 225.0 246.2 (>60) BUN/Creatinine Ratio 15.0 10.8 (8-20) Glucose 91 90 (70-100) mg/dL Lactic Acid (0.5-2.0) mmol/L Calcium 8.3 L 8.2 L (8.6-10.3) mg/dL Total Bilirubin 0.50 (0.2-1.0) mg/dL AST 18 (13-39) U/L ALT 17 (7-52) U/L Alkaline Phosphatase 88 (34-104) U/L Total Creatine Kinase 103 (10-223) U/L Troponin I 0.01 (<0.04) ng/mL C-Reactive Protein 11.75 H (< 5.00) mg/L B-Natriuretic Peptide ( - 100) pg/mL Total Protein 5.9 L (6.4-8.9) g/dL Albumin 3.2 (3.2-5.2) g/dL Globulin 2.7 (2-4) g/dL Albumin/Globulin Ratio 1.2 (1-3) Carbamazepine Pending Assess/Plan/Problems-Billing . Assessment: 51 yo man with DD, now with reported respiratory arrest, Now clearly related to seizure activity. Current Medications: - Acetaminophen (Tylenol Tab) 650 mg PO Q6H PRN FEVER/PAIN - Carbamazepine (Tegretol Tab) 600 mg PO 1900 [facility] - Carbamazepine (Tegretol Tab) 400 mg PO 0700,1200 [facility] - Docusate Sodium (Colace Cap) 200 mg PO BID - Heparin Sodium (Porcine) (Heparin Vial) 5,000 units SUBCUT Q8HR - NS @ 125 mls/hr IV - Ceftriaxone 1,000 mg IVPB Q24H - Azithromycin 500 mg IVPB Q24H - Melatonin (Melatonin) 3 mg PO BEDTIME PRN Sleep - Morphine Sulfate (Morphine Inj (Syringe)) 1 mg IV Q2H PRN air hunger/SOB - Omeprazole (Prilosec Cap) 20 mg PO DAILY - Ondansetron HCl (Zofran Inj) 4 mg IV Q6H PRN NAUSEA . - Patient Problems (1) Respiratory arrest Current Visit: Yes Status: Acute Priority: High Code(s): R09.2 - RESPIRATORY ARREST Comment: - Now clearly related to a seizure. - AB; will repeat in one hour. (2) Cognitive developmental delay Current Visit: Yes Status: Acute Code(s): F81.9 - DEVELOPMENTAL DISORDER OF SCHOLASTIC SKILLS, UNSPECIFIED (3) Seizure disorder Current Visit: Yes Status: Acute Code(s): G40.909 - EPILEPSY, UNSP, NOT INTRACTABLE, WITHOUT STATUS EPILEPTICUS SNOMED Code(s): 053662535 Comment: - Urgent EEG - Brain CT after that - Repeat ABG in one hour - Appreciate neurology consult
[2017-02-21] MEDS: Azithromycin IV(*) 500 MG in NS 0.9% 250 ML* 250 ML IVPB SCH (20:42)
[2017-02-21 20:58] LABS: FIO2 3
[2017-02-21 21:01] LABS: PCO2 Arterial 59 mmHg (35-45)
--- NOTE | 2017-02-21 22:50 | RAD ---
HISTORY: Seizure, MECHANICAL INTERN shunt COMPARISONS: July 12, 2015 TECHNIQUE: Multiple contiguous axial CT scans were obtained of the head without intravenous contrast. FINDINGS: The study is limited by patient motion artifact. HEMORRHAGE/INFARCT: There is no hemorrhage or acute infarct. MASSES/SHIFT: There is no mass or shift. EXTRA-AXIAL SPACES: There are no extra-axial fluid collections. SULCI AND VENTRICLES: A ventricular shunt catheter is noted from a right parietal craniotomy with the tip in the anterior hemispheric fissure. A second catheter is noted with the tip in the region of the right temporal lobe. This is similar to previous examination. CEREBRUM: Evaluation limited by motion. The appearance is similar to the previous examination. BRAINSTEM: Evaluation is limited by motion. The appearance is similar to the previous examination. CEREBELLUM: Evaluation limited by motion. The appearance similar to the previous examination VESSELS: The vessels are grossly normal. PARANASAL SINUSES: The paranasal sinuses are clear. ORBITS: The orbits are unremarkable. BONES AND SOFT TISSUE: There is plagiocephaly. There is thickening of the skull consistent with chronic anticonvulsant therapy OTHER: None IMPRESSION: LIMITED STUDY SECONDARY TO MOTION. STATUS POST VENTRICULOPERITONEAL SHUNTING. NO SIGNIFICANT CHANGE FROM THE PREVIOUS EXAMINATION. NO ACUTE INTRACRANIAL PATHOLOGY
[2017-02-22] MEDS: CMCS: Melatonin (NF) 3 MG TAB PO PRN (00:16)
--- NOTE | 2017-02-22 00:43 | CONS ---
CONSULTATION NOTE: DATE OF CONSULT: DATE OF DICTATION: 02/21/17 REASON FOR CONSULT: Question of seizure. HISTORY OF PRESENT ILLNESS: Mr. Abdi is a 51-year-old gentleman with history of hydrocephalus and ENDOCRINOLOGY NURSE shunt x4, history of epilepsy, following with Dr. Araiza, on carbamazepine. His epilepsy is noted to be intractable with approximately 1 to 2 seizures a year. He was last seen by Dr. Araiza on at which point, he was noted to have a breakthrough seizure of 6 minutes. His parent's note since his last ENDOCRINOLOGY NURSE shunt, he has decreased verbal output. Recently, he was admitted to [facility] with pneumonia. The morning after discharge at [facility], he became flushed in the face, had difficulty breathing for 5 minutes, babbled with eyes open making sounds. It was questioned to be a primary pulmonary event. He was admitted to hospital here at [facility]. His chest x-ray showed cardiomegaly, pulmonary interstitial edema and right pleural effusion. His white count was 7. Sodium was 130, calcium was 8.3, CRP was 11.75. Echocardiogram showed an ejection fraction of 55% to 60% with moderate pulmonary hypertension. Please see report for details. His carbamazepine level was initially 9.1, repeat at 11.8. Today, he had a repeat event of difficulty breathing, and I was brought to see the event by Dr. Frost. At the end of the episode, he seemed to have a gaze preference off to the right, had deep breathing, and decreased interaction. There was no verbal output, no response to stimuli. Question of seizure as etiology was raised. Other question was raised on whether this was a pulmonary event causing hypoxia and lowering seizure threshold. PAST MEDICAL HISTORY: Includes intellectual disability with microencephaly, hydrocephalus with ENDOCRINOLOGY NURSE shunt with full revision, intractable complex partial seizures with or without secondary generalization. CURRENT MEDICATIONS: Include: 1. Tylenol 650 mg p.o. q.6 hours p.r.n. fever or pain. 2. Azithromycin 500 mg IV q.24 hours. 3. Carbamazepine 400 mg at 7, at noon and 600 mg at 1900. 4. Ceftriaxone 1000 mg every 24 hours. 5. Colace 200 mg p.o. b.i.d. 6. Heparin subcu 5000 International Units q.8 hours. 7. Melatonin 3 mg p.o. q.h.s. 8. Morphine 1 mg IV q.2 hours p.r.n. shortness of breath. 9. Omeprazole 20 mg p.o. daily. 10. Zofran 4 mg IV q.6 hours p.r.n. nausea. 11. Sodium chloride 125 mL an hour IV. ALLERGIES: Include LEVOFLOXACIN. SOCIAL HISTORY: Mr. Abdi lives at [facility]. He does not smoke or drink alcohol. His parents were at bedside this evening. PHYSICAL EXAM: On examination this evening, his blood pressure was recorded most recently at 147/76. His pulse was 65, respiratory rate 20, saturation 97% . He had a regular cardiac rhythm. His lungs had decreased breath sounds, right greater than left. He had deep heavy breathing. Microencephaly was noted. His pupils were symmetric. I could not visualize his fundi. His eyes were roving. Initially, he seemed to be up into the right. His facial expression was symmetric. He had contractures noted in his arms equally at the elbows with no voluntary movement noted. In his lower extremities, his tone seemed to be slightly increased on the left compared to the right side. Reflexes were 1+ at the elbows, absent at the knees, toes were equivocal. DIAGNOSTIC STUDIES/LAB DATA: Data includes EEG, which was performed at bedside , which showed diffuse slowing. He had a blood gas initially with a pH of 7.24 , CO2 66, O2 73. Repeat at 2054, pH was 7.3, CO2 of 59, O2 at 74 with HCO3 of 25.8, and saturation 96.7. His metabolic panel today showed a sodium that was low at 130. His CBC showed a normal white count. His hemoglobin and hematocrit are progressively decreased during hospitalization, currently at 12.9 and 38, platelets have also decreased at 124, question of hemodilutional is raised. His white count is also decreased. Carbamazepine level was 9.1, repeat at 11.8. IMPRESSION: Tim Abdi is a 51-year-old gentleman with history of intellectual disability with hydrocephalus with ENDOCRINOLOGY NURSE shunt with 4 revisions, history of intractable epilepsy with partial seizures with secondary generalization, now admitted with repeat difficulty with breathing with right pleural effusion. Questions were raised whether these were primary pulmonary event versus seizure or both. At this point, the EEG was slow with no ongoing seizure activity. As the evening went onward, he started to have increased interaction backed with baseline. Therefore, seizure medication was not changed. He is having a CT of the brain to look for any change in hydrocephalus that would lead to need for replacement of ENDOCRINOLOGY NURSE shunt. Tomorrow, they will tap his pleural effusion. Question is raised on whether there is any relationship between the ENDOCRINOLOGY NURSE shunt and the pleural effusion. Over an hour was spent in direct [id number] patient care over 3 visits during the evening. Clinically status improved as the evening continued. Tomorrow, Dr. Mcgarry will be covering. [id number]/[facility] #: [id number] [facility] CENTERLázaro
[2017-02-22] MEDS: NS 0.9% 1000 ML* 1,000 ML IV SCH ×3 (02:35→20:34)
[2017-02-22] MEDS: Omeprazole CAP* 20 MG PO SCH (06:16)
[2017-02-22] MEDS: carBAMazepine TAB(*) 200 MG PO SCH ×2 (06:16→13:41)
[2017-02-22] MEDS: Heparin VIAL(*) 5000 UNITS/ML VIAL (FIVE THOUSAND) SUBCUT SCH ×3 (06:20→21:30)
[2017-02-22] MEDS: Docusate CAP* 100 MG PO SCH ×2 (09:24→21:17)
--- NOTE | 2017-02-22 12:12 | EEG ---
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 This evening he had episode of difficulty breathing which was associated with nonresponsiveness and prolonged decreased interaction with people in his environment. REPORT: EEG was requested to look for epileptiform activity. In the beginning of the record, the background rhythm was slow, in the theta range intermittently , there was movement artifact. Some talking and mumbling was noted associated with this movement artifact. As the record continued, there continued to be slowing in the background rhythm. There was no evidence of a significant asymmetry to the background rhythm. No evidence of sharp or spike wave activity. CLINICAL IMPRESSION: This was an abnormal EEG. There was diffuse slowing of the background rhythm with no evidence of epileptiform activity. [id number]/[facility] #: [id number] MTDD
[2017-02-22] MEDS ORDERED: Atropine 1MG/ML INJ* 1 ML VIAL ONE (14:35)
[2017-02-22] MEDS ORDERED: Propofol* 10 MG/ML 20 ML BTL IV PUSH ONE (14:50)
[2017-02-22] MEDS ORDERED: Propofol* 100 ML ONE (15:07)
--- NOTE | 2017-02-22 15:34 | CONSULT ---
Consult Consult: CRITICAL CARE MEDICINE DATE: 02/1317 TIME: 1450 REFERRING PROVIDER: Carmelo REASON/CHIEF COMPLAINT: stupor, resp failure HISTORY OF PRESENT ILLNESS: 51yo M with h/o microancephaly, h/o WALL MAN shunts x4 revisions, seizure disorder presenting originally with a resp arrest with spont recovery. Was evaluated by neuro without much change from baseline with repeat EEG and CT relatively unchanged. CXR with enlarging R pleural effusion and atelectasis. Today he was in PACU for thora procedure when his mental status failed further and agonal breathing concerns. Anesthesia eval and jaw thrust applied with O2 maintained. Poor ventilation continued and neuro status did not recover. They did obtain a abg prior to intubation to perhaps aid our diagnostics. I evaluated in pacu and agreed with intubation needs. Also, given his pleural effusion ailments, we agreed to intubate and thora could be performed in icu with hopefully fostering of early extubation, as soon as tomorrow. REVIEW OF SYSTEMS: Null sec to acuity PAST MEDICAL HISTORY: Reviewed per records MEDICATIONS: Current rx Reviewed. ALLERGIES: Levaquin SOCIAL HISTORY: Reviewed. [facility] pt FAMILY HISTORY: Noncontributory at present. PHYSICAL EXAM: Vital Signs: Reviewed. Hr 60s. SBP >100. Sat 97%, 4L. RR ~10, but with upper airway movement only without much diaphragmatic movement. Neurologic: stupor. HEENT: pupils reactive. Cardiovascular: distant, s1, s2 Respiratory: dec bs R>L, RR ~10, but with upper airway movement only without much diaphragmatic movement. Abdomen: soft, nt Extremities: contracted, dep edema Access: lle piv LABS: Reviewed. IMAGING: Reviewed. MEDICATIONS: Reviewed. ASSESSMENT/PLAN: 51 M Acute hypercarbic resp failure - now requiring intubation for airway protection and ventilation Question of acute on chronic seizure disorder; this may be a triggered threshold failure with resp acidosis, which may be brought on by tracheobronchomalacia and chronic aspiration ailments, as he appears to have atelectasis and associated R pleural effusion, vs (as he is treated for currently) RLL CAP. Best to ventilate him now. try to avoid sedatives and see where his mentation leads us with adequete ventilation met. Had prior CT and EEG which were ok and no need to repeat now; on his AEDs. Right pleural effusion - best to still perform thora for diagnostic and therapeutic needs. Severe MR Supportive and preventative care as ordered. SUP: ppi VTE prophylaxis: heparin Mccartney catheter given critical illness, monitoring needs for accurate assessment of RASHAWN and KDIGO criteria for critically ill patients and to avoid potential harms of urinary retention, skin breakdown/ulcers. Disposition: ICU Code Status: Full Critical Care Time: 45min Yung Peres DO
[2017-02-22 15:45] LABS: PCO2 Arterial 102 mmHg (35-45)
[2017-02-22] MEDS ORDERED: fentaNYL* 50 MCG/ML 2 ML VIAL (100 MCG VIAL) IV SLOW PU PRN (15:55)
[2017-02-22] MEDS ORDERED: Atropine SYRINGE* 0.1 MG/ML 10 ML SYRINGE (1 MG) ONE (16:00)
[2017-02-22] MEDS: Propofol* 100 ML IV SCH ×2 (16:16→20:02)
--- NOTE | 2017-02-22 16:20 | RAD ---
HISTORY: Intubation COMPARISONS: February 19, 2017 VIEWS:1: Single frontal portable view of the chest at 3:55 PM FINDINGS: LINES AND TUBES: An endotracheal tube is noted with tip overlying the trachea between the clavicles and the victoria. A gastric tube is noted. The tip is in the left upper quadrant in a prepyloric position. Shunt tubing is noted overlying the right chest. There is tubing overlying the right midchest that is of unclear etiology.. CARDIOMEDIASTINAL SILHOUETTE: The cardiomediastinal silhouette is stable. PLEURA: There is a stable right pleural effusion versus chronic pleural thickening LUNG PARENCHYMA: There is patchy alveolar opacification of the right lung base. There is prominence of the central pulmonary vasculature. ABDOMEN: The upper abdomen is clear. There is no subphrenic gas. BONES AND SOFT TISSUES: No bone or soft tissue abnormalities are noted. IMPRESSION: 1. LINES AND TUBES ABOVE. 2. RIGHT BASILAR ATELECTASIS VERSUS CONSOLIDATION. 3. STABLE RIGHT PLEURAL EFFUSION VERSUS CHRONIC PLEURAL THICKENING. 4. PULMONARY VASCULAR CONGESTION
[2017-02-22] MEDS: Chlorhexidine MOUTHWASH 0.12%* 15 ML UDC TOPICAL SCH ×2 (16:23→20:04)
--- NOTE | 2017-02-22 16:44 | PN ---
Subjective Date of Service: 02/22/17 Interval History: Pt seen in [facility]. He opened his eyes to my calling his name. He vocalized some sounds but did not speak. Family History: Unchanged from Admission Social History: Unchanged from Admission Past Medical History: Unchanged from Admission Objective Active Medications: Acetaminophen (Tylenol Tab*) 650 mg PO Q6H PRN PRN Reason: FEVER/PAIN Carbamazepine (Tegretol Tab(*)) 600 mg PO 1900 [facility] Last Admin: 02/21/17 20:54 Dose: 600 mg Carbamazepine (Tegretol Tab(*)) 400 mg PO 0700,1200 [facility] Last Admin: 02/22/17 13:41 Dose: Not Given Chlorhexidine Gluconate (Peridex Mouth Wash 0.12%*) 15 ml TOPICAL Q4H [facility] Last Admin: 02/22/17 16:23 Dose: 15 ml Docusate Sodium (Colace Cap*) 200 mg PO BID [facility] Last Admin: 02/22/17 09:24 Dose: Not Given Fentanyl Citrate (Fentanyl*) 25 mcg IV SLOW PU Q4H PRN PRN Reason: PAIN Heparin Sodium (Porcine) (Heparin Vial(*)) 5,000 units SUBCUT Q8HR [facility] Last Admin: 02/22/17 13:41 Dose: Not Given Sodium Chloride (Ns 0.9% 1000 Ml*) 1,000 mls @ 125 mls/hr IV PER RATE [facility] Last Admin: 02/22/17 11:05 Dose: 125 mls/hr Ceftriaxone Sodium 1,000 mg/ (Sodium Chloride) 50 mls @ 200 mls/hr IVPB Q24H [facility] Last Admin: 02/21/17 19:53 Dose: 200 mls/hr Azithromycin 500 mg/ Sodium (Chloride) 250 mls @ 250 mls/hr IVPB Q24H [facility] Last Admin: 02/21/17 20:42 Dose: 250 mls/hr Lactated Ringer's (Lactated Ringers 1000 Ml Bag*) 1,000 mls @ 0 mls/hr IV WIDE OPEN [facility] PRN Reason: Wide Open Stop: 02/23/17 15:01 Propofol (Diprivan*) 100 mls @ 0 mls/hr IV .(Initial Rate) [facility]; Per Protocol PRN Reason: Protocol Last Admin: 02/22/17 16:16 Dose: 12.9 mls/hr Lansoprazole (Prevacid Solutab*) 30 mg G TUBE DAILY JAE Lorazepam (Ativan Inj*) 0.5 mg IV PUSH Q4H PRN PRN Reason: ANXIETY Melatonin (Melatonin (Nf)) 3 mg PO BEDTIME PRN; Protocol PRN Reason: Sleep Last Admin: 02/22/17 00:16 Dose: 3 mg Morphine Sulfate (Morphine Inj (Syringe)*) 1 mg IV Q2H PRN PRN Reason: air hunger/SOB Last Admin: 02/21/17 06:16 Dose: 1 mg Ondansetron HCl (Zofran Inj*) 4 mg IV Q6H PRN PRN Reason: NAUSEA Vital Signs 02/21/17 02/21/17 02/21/17 19:11 20:01 22:30 Temperature Pulse Rate 65 65 Respiratory 20 16 16 Rate Blood Pressure 147/76 148/82 (mmHg) O2 Sat by Pulse 97 99 Oximetry 02/21/17 02/22/17 02/22/17 23:58 01:04 03:17 Temperature Pulse Rate 51 44 Respiratory 17 17 Rate Blood Pressure 173/94 138/74 182/69 (mmHg) O2 Sat by Pulse 96 92 Oximetry 02/22/17 02/22/17 02/22/17 03:44 07:38 09:10 Temperature Pulse Rate 52 Respiratory 16 20 Rate Blood Pressure 148/80 151/86 (mmHg) O2 Sat by Pulse 100 Oximetry 02/22/17 02/22/17 13:46 15:51 Temperature 96.4 F 95.5 F Pulse Rate 68 Respiratory 14 Rate Blood Pressure 120/66 (mmHg) O2 Sat by Pulse 100 Oximetry Oxygen Devices in Use Now: Nasal Cannula - 100%-3L Appearance: Middle aged male sitting up in his bed in same day surgery, sleeping , awakens to voice, NAD Eyes: No Scleral Icterus Ears/Nose/Mouth/Throat: Mucous Membranes Moist Respiratory: Symmetrical Chest Expansion and Respiratory Effort, Clear to Auscultation - anteriorly and L lateral base, R base diminished breath sounds Cardiovascular: NL Sounds; No Murmurs; No JVD, RRR, No Edema Abdominal: NL Sounds; No Tenderness; No Distention Extremities: No Clubbing, Cyanosis Skin: No Nodules or Sclerosis Result Diagrams: 02/21/17 05:58 02/21/17 05:58 Additional Lab and Data: Lab Results 0602/19/17 02/19/17 Range/Units 18:25 18:25 18:25 WBC 7.0 (3.5-10.8) 10^3/ul RBC 4.35 (4.0-5.4) 10^6/ul Hgb 14.1 (14.0-18.0) g/dl Hct 42 (42-52) % MCV 96 H (80-94) fL MCH 32 H (27-31) pg MCHC 34 (31-36) g/dl RDW 14 (10.5-15) % Plt Count 152 (150-450) 10^3/ul MPV 7 L (7.4-10.4) um3 Neut % (Auto) 77.7 (38-83) % Lymph % (Auto) 12.6 L (25-47) % Nolan % (Auto) 5.8 (1-9) % Eos % (Auto) 2.7 (0-6) % Baso % (Auto) 1.2 (0-2) % Absolute Neuts (auto) 5.5 (1.5-7.7) 10^3/ul Absolute Lymphs (auto) 0.9 L (1.0-4.8) 10^3/ul Absolute Monos (auto) 0.4 (0-0.8) 10^3/ul Absolute Eos (auto) 0.2 (0-0.6) 10^3/ul Absolute Basos (auto) 0.1 (0-0.2) 10^3/ul Absolute Nucleated RBC 0 10^3/ul Nucleated RBC % 0 Sodium (133-145) mmol/L Potassium (3.5-5.0) mmol/L Chloride (101-111) mmol/L Carbon Dioxide (22-32) mmol/L Anion Gap (2-11) mmol/L BUN (6-24) mg/dL Creatinine (0.67-1.17) mg/dL Est GFR ( Amer) (>60) Est GFR (Non-Af Amer) (>60) BUN/Creatinine Ratio (8-20) Glucose (70-100) mg/dL Lactic Acid 0.8 (0.5-2.0) mmol/L Calcium (8.6-10.3) mg/dL Total Bilirubin (0.2-1.0) mg/dL AST (13-39) U/L ALT (7-52) U/L Alkaline Phosphatase (34-104) U/L Total Creatine Kinase (10-223) U/L Troponin I (<0.04) ng/mL C-Reactive Protein (< 5.00) mg/L B-Natriuretic Peptide 121 H ( - 100) pg/mL Total Protein (6.4-8.9) g/dL Albumin (3.2-5.2) g/dL Globulin (2-4) g/dL Albumin/Globulin Ratio (1-3) Carbamazepine 02/19/17 02/20/17 02/20/17 Range/Units 19:30 06:05 06:05 WBC 6.3 (3.5-10.8) 10^3/ul RBC 3.97 L (4.0-5.4) 10^6/ul Hgb 13.0 L (14.0-18.0) g/dl Hct 38 L (42-52) % MCV 96 H (80-94) fL MCH 33 H (27-31) pg MCHC 34 (31-36) g/dl RDW 13 (10.5-15) % Plt Count 136 L (150-450) 10^3/ul MPV 7 L (7.4-10.4) um3 Neut % (Auto) (38-83) % Lymph % (Auto) (25-47) % Nolan % (Auto) (1-9) % Eos % (Auto) (0-6) % Baso % (Auto) (0-2) % Absolute Neuts (auto) (1.5-7.7) 10^3/ul Absolute Lymphs (auto) (1.0-4.8) 10^3/ul Absolute Monos (auto) (0-0.8) 10^3/ul Absolute Eos (auto) (0-0.6) 10^3/ul Absolute Basos (auto) (0-0.2) 10^3/ul Absolute Nucleated RBC 10^3/ul Nucleated RBC % Sodium 130 L 130 L (133-145) mmol/L Potassium 4.0 3.6 (3.5-5.0) mmol/L Chloride 100 L 100 L (101-111) mmol/L Carbon Dioxide 25 25 (22-32) mmol/L Anion Gap 5 5 (2-11) mmol/L BUN 6 4 L (6-24) mg/dL Creatinine 0.40 L 0.37 L (0.67-1.17) mg/dL Est GFR ( Amer) 289.4 316.6 (>60) Est GFR (Non-Af Amer) 225.0 246.2 (>60) BUN/Creatinine Ratio 15.0 10.8 (8-20) Glucose 91 90 (70-100) mg/dL Lactic Acid (0.5-2.0) mmol/L Calcium 8.3 L 8.2 L (8.6-10.3) mg/dL Total Bilirubin 0.50 (0.2-1.0) mg/dL AST 18 (13-39) U/L ALT 17 (7-52) U/L Alkaline Phosphatase 88 (34-104) U/L Total Creatine Kinase 103 (10-223) U/L Troponin I 0.01 (<0.04) ng/mL C-Reactive Protein 11.75 H (< 5.00) mg/L B-Natriuretic Peptide ( - 100) pg/mL Total Protein 5.9 L (6.4-8.9) g/dL Albumin 3.2 (3.2-5.2) g/dL Globulin 2.7 (2-4) g/dL Albumin/Globulin Ratio 1.2 (1-3) Carbamazepine Pending Assess/Plan/Problems-Billing Mr Abdi is a 51 yo M with intellectual developmental delay and seizure disorder who presented to the ER with reported respiratory arrest and was subsequently found to have seizures in the hospital. - Patient Problems (1) Acute hypercapnic respiratory failure Current Visit: Yes Status: Acute Code(s): J96.02 - ACUTE RESPIRATORY FAILURE WITH HYPERCAPNIA SNOMED Code(s): 480915717 Comment: At the time of my evaluation the patient was found to be guppy breathing but appeared stable. Shortly after my evaluation I was called back to [facility] as the patient was found to be having periods of apnea and bradycardic and hypotensive. He was subsequently intubated after receiving atropine 0.5mg IVx1 which helped his HR/BP but he did not overall improve his breathing. His pCO2 was found to be markedly elevated at 102 and his pH low at 7.1. Dr. Peres has seen the patient and will assume care of the patient for now. (2) Seizure disorder Current Visit: Yes Status: Acute Code(s): G40.909 - EPILEPSY, UNSP, NOT INTRACTABLE, WITHOUT STATUS EPILEPTICUS SNOMED Code(s): 965080385 Comment: Continue tegretol at home dose for now. Await further recommendations from neurology about his antiepileptics. (3) DVT prophylaxis Current Visit: Yes Status: Acute Code(s): FVF1748 - SNOMED Code(s): 649940027 Comment: SQ heparin (4) Full code status Current Visit: Yes Status: Acute Code(s): Z78.9 - OTHER SPECIFIED HEALTH STATUS SNOMED Code(s): 644337971
[2017-02-22 16:47] LABS: Body Fluid WBC 72 /mcL
[2017-02-22 16:49] LABS: Body Fluid Appearance Clear
[2017-02-22 17:01] LABS: Body Fluid Total Cells Counted 100
--- NOTE | 2017-02-22 17:12 | RAD ---
CPT II Codes: 6100F INDICATION: Bilateral pleural effusions in a patient with a ventriculoperitoneal shunt COMPARISON: Chest x-ray February 19, 2017 PROCEDURE NOTE AND IMAGING FINDINGS: The benefits of the and risks of procedure discussed and explained over the telephone with the patient's mother and guardian, Nikki Abdi. Mrs. Abdi consented for the procedure. At the bedside in the ICU multiple images of the bilateral hemithoraces were obtained showing bilateral pleural effusions. There are small bilateral pleural effusions present. The site was marked. A formal time out was performed before beginning the procedure. Due to the patient's inability to cooperate and to sit upright, the procedure was done with the patient in the right lateral decubitus position. The patient was prepped and draped in the usual sterile fashion. The patient?s posterior chest wall was anesthetized with 1% lidocaine. A small skin joaquin was made to allow placement of the 5-Turkmen thoracentesis needle and catheter. Approximately 300 mL of straw-colored fluid was aspirated. The fluid was delivered to the laboratory according to the request. The patient tolerated the procedure without incident. IMPRESSION: Uncomplicated bedside, right lateral decubitus thoracentesis as described in the body of the report.
[2017-02-22] MEDS ORDERED: Albuterol 2.5 MG/3 ML NEB.SOL* (0.083%) INH PRN (17:19)
[2017-02-22] MEDS: carBAMazepine LIQ(*) 100 MG/5 ML UDC (10 ML) PO SCH (20:03)
[2017-02-22] MEDS: cefTRIAXone VIAL(*) 1,000 MG in NS 0.9% 50 ML* 50 ML IVPB SCH (20:31)
[2017-02-22] MEDS: Azithromycin IV(*) 500 MG in NS 0.9% 250 ML* 250 ML IVPB SCH (21:30)
--- NOTE | 2017-02-22 23:42 | PRO ---
PROCEDURE REPORT: DATE OF PROCEDURE: 02/22/17 - ROOM #ICU-04 SERVICE: Critical care medicine. LOCATION OF PROCEDURE: PACU. PROCEDURE: Endotracheal intubation. PROCEDURALIST: Mallory Nunez NP, Dr. Peres, supervising. CONSENT OBTAINED: No, procedure performed emergently. TIMEOUT HELD: No. INDICATION: Acute respiratory failure and pneumonia. DESCRIPTION OF PROCEDURE: Oxygen was maintained and vitals were monitored. The patient was preoxygenated and bagged to 97%. He was placed in the supine position. He was premedicated with 70 mcg of propofol. A MAC blade direct laryngoscopy was performed. It was inserted with a grade 1 view obtained. An 8.0 endotracheal tube was inserted to 23 at the lip. He had good chest rise and breath sounds appreciated bilaterally. He had positive color change. Patient tolerated the procedure well. A chest x-ray is now pending. OG tube was also placed at that time. Again, chest x-ray is pending for placement. MALLORY NUNEZ NP [id number]/[facility] #: [id number] MTDD
[2017-02-23] MEDS: Chlorhexidine MOUTHWASH 0.12%* 15 ML UDC TOPICAL SCH ×4 (00:11→07:53)
[2017-02-23] MEDS: NS 0.9% 1000 ML* 1,000 ML IV SCH ×2 (00:40→08:41)
[2017-02-23] MEDS: Propofol* 100 ML IV SCH ×2 (00:57→06:58)
[2017-02-23] MEDS: Heparin VIAL(*) 5000 UNITS/ML VIAL (FIVE THOUSAND) SUBCUT SCH ×3 (05:38→20:57)
[2017-02-23 06:41] LABS: Hematocrit 39 % (42-52); Hemoglobin 13.5 g/dl (14.0-18.0); Mean Corpuscular HGB Conc 35 g/dl (31-36); Mean Corpuscular Hemoglobin 33 pg (27-31); Mean Corpuscular Volume 96 fL (80-94); Mean Platelet Volume 8 um3 (7.4-10.4); Red Blood Count 4.09 10^6/ul (4.0-5.4); Red Cell Distribution Width 13 % (10.5-15); White Blood Count 5.9 10^3/ul (3.5-10.8)
[2017-02-23 06:54] LABS: BUN/Creatinine Ratio 26.1 (8-20); Calcium 7.5 mg/dL (8.6-10.3); EGFR African American 548.1 (>60); EGFR Non-African American 426.2 (>60); Magnesium 1.6 mg/dL (1.9-2.7); Phosphorus 1.7 mg/dL (2.5-5.0); Potassium 3.2 mmol/L (3.5-5.0)
[2017-02-23 07:33] LABS: TSH (Thyroid Stimulating Horm) 0.64 mcIU/mL (0.34-5.60)
[2017-02-23] MEDS: Lansoprazole SOLUTAB* 30 MG G TUBE SCH (07:53)
[2017-02-23] MEDS: carBAMazepine LIQ(*) 100 MG/5 ML UDC (10 ML) PO SCH ×3 (07:53→18:46)
[2017-02-23] MEDS: Docusate CAP* 100 MG PO SCH (07:53)
[2017-02-23] MEDS ORDERED: Magnesium Sulf 4 GM/100 ML IV* 4,000 MG/100 ML BAG IVPB ONE (09:00)
[2017-02-23] MEDS ORDERED: Potassium Phosphate IV* 30 MMOLE in NS 0.9% 250 ML* 250 ML IVPB ONE (09:30)
[2017-02-23] MEDS ORDERED: NS 0.9% 250 ML* 250 ML ONE (10:45)
--- NOTE | 2017-02-23 11:04 | PN ---
Progress Note - Progress Note Note: CRITICAL CARE MEDICINE DATE: 02/23/17 TIME: 1010 SUBJECTIVE: Patient seen and examined. PHYSICAL EXAM: Vital Signs: Reviewed. Hr 60s or below. SBP >100. 35%. sync with vent. Neurologic: RASS -2. prop held HEENT: pupils reactive. Cardiovascular: distant, s1, s2 Respiratory: dec bs but no rhonchi. looks well with ppv. Abdomen: soft, nt Extremities: contracted, dep edema Access: midline LABS: Reviewed. IMAGING: Reviewed. MEDICATIONS: Reviewed. ASSESSMENT/PLAN: 51 M Acute hypercarbic resp failure - now requiring intubation for airway protection and ventilation Certinaly seems better with ppv likely supporting more of his tracheobronchomalacia ailment and chronic aspirations but otherwsie tolerating. had anne pleural fluid removed and can avoid further tap at this time. Would rather awaken further and liberate and see what dynamics he shows us. Remain on his AEDs. Replete lytes. close f/u today Severe MR Supportive and preventative care as ordered. SUP: ppi VTE prophylaxis: heparin Mccartney catheter given critical illness, monitoring needs for accurate assessment of RASHAWN and KDIGO criteria for critically ill patients and to avoid potential harms of urinary retention, skin breakdown/ulcers. Disposition: ICU Code Status: Full Critical Care Time: 35min Yung Peres DO
[2017-02-23] MEDS: Azithromycin TAB* 250 MG PO SCH (15:02)
[2017-02-23 15:40] LABS: Glucose, BF 118 mg/dL
[2017-02-23 16:07] LABS: Total Protein, BF 1.6 g/dL
[2017-02-23] MEDS: cefTRIAXone VIAL(*) 1,000 MG in NS 0.9% 50 ML* 50 ML IVPB SCH (19:42)
[2017-02-23] MEDS: Docusate LIQ* 100 MG/10 ML UDC PO SCH (20:57)
[2017-02-24] MEDS: Heparin VIAL(*) 5000 UNITS/ML VIAL (FIVE THOUSAND) SUBCUT SCH ×2 (05:46→21:00)
[2017-02-24 06:34] LABS: Venous Bicarbonate HCO3 29.7 mmol/L (24-28)
[2017-02-24 06:35] LABS: Comments Flag Yes; Hematocrit 36 % (42-52); Hemoglobin 12.3 g/dl (14.0-18.0); Mean Corpuscular HGB Conc 34 g/dl (31-36); Mean Corpuscular Hemoglobin 33 pg (27-31); Mean Corpuscular Volume 96 fL (80-94); Mean Platelet Volume 7 um3 (7.4-10.4); Red Blood Count 3.74 10^6/ul (4.0-5.4); Red Cell Distribution Width 14 % (10.5-15)
[2017-02-24 06:58] LABS: Calcium 8.1 mg/dL (8.6-10.3); EGFR African American 374.4 (>60); EGFR Non-African American 291.1 (>60); Magnesium 2.4 mg/dL (1.9-2.7); Phosphorus 3.1 mg/dL (2.5-5.0); Potassium 4.1 mmol/L (3.5-5.0)
[2017-02-24] MEDS: carBAMazepine LIQ(*) 100 MG/5 ML UDC (10 ML) PO SCH ×3 (08:39→18:10)
[2017-02-24] MEDS: Lansoprazole SOLUTAB* 30 MG G TUBE SCH (08:40)
[2017-02-24] MEDS: Docusate LIQ* 100 MG/10 ML UDC PO SCH ×2 (08:40→20:59)
[2017-02-24] MEDS: Azithromycin TAB* 250 MG PO SCH (08:40)
[2017-02-24] MEDS ORDERED: Potassium Chloride LIQUID* 20 MEQ PACKET G TUBE ONE (09:07)
[2017-02-24] MEDS ORDERED: Furosemide IV* 10 MG/ML 2 ML VIAL (20 MG) IV SLOW PU ONE (10:14)
[2017-02-24] MEDS ORDERED: fentaNYL* 50 MCG/ML 2 ML VIAL (100 MCG VIAL) ONE (11:09)
[2017-02-24] MEDS ORDERED: Propofol* 100 ML ONE (11:13)
[2017-02-24] MEDS ORDERED: fentaNYL* 50 MCG/ML 2 ML VIAL (100 MCG VIAL) IV SLOW PU ONE (11:14)
--- NOTE | 2017-02-24 11:35 | PN ---
Progress Note - Progress Note Note: CRITICAL CARE MEDICINE DATE: 02/24/17 TIME: 900 (late entry) SUBJECTIVE: Patient seen and examined. [employer] [facility] aid present. PHYSICAL EXAM: Vital Signs: Reviewed. Hr 60s and sb or below. SBP ~100. tolerated bipap overnight. now nc Neurologic: awake, looking about. moving ex. HEENT: pupils reactive. Cardiovascular: distant, s1, s2 Respiratory: dec bs still but no rhonchi, still has signs of TBM Abdomen: soft, nt, distended Extremities: contracted, dep edema Access: midline LABS: Reviewed. IMAGING: Reviewed. MEDICATIONS: Reviewed. ASSESSMENT/PLAN: 51 M Acute hypercarbic resp failure - able to liberate yesterday however still with ppv needs that he rescues with revealing Tracheobronchomalacia significance. Needs intermittent bipap today and nocturnal. Question is whether he can equilibrate to being off ppv. Neuro status same. Remain on his AEDs. Sinus alli as low as 20s without interventions. poor vagal tone. Lytes well. Mobilize fluid with lasix today. Tolerating po well. Completing abx course. ICU Supportive and preventative care as ordered. SUP: po VTE prophylaxis: heparin Straight cath prn Disposition: ICU Code Status: Full Critical Care Time: 30min Yung Peres DO
[2017-02-24] MEDS ORDERED: NS 0.9% 1000 ML* 1,000 ML IV ONE (11:48)
--- NOTE | 2017-02-24 12:17 | PN ---
Progress Note - Progress Note Note: CRITICAL CARE MEDICINE DATE: 02/24/17 TIME: 1110 CAlled by nursing for HR into 20s and shwoing further pause. Pt with same resp pattern going into this event on NC and unable to self rescue. Atropine given without response. We attempted bag ventilation but poor ability to seal and adequately ventilate, as clearly respiratory arrest leading to cardiac arrest. Hr was SB but symptomatically slow with agonal breaths without gas exchange. Seemingly unable to even rescue with positive pressure bag breath as we could not ventilate and appearance of "distal choking" sec to tbm. Pt hypoperfused and we initiated cpr. 1mg epi instilled and HR elevated to ST 120s. However pt still unable to bag ventilate and therefore pt intubated with 8.0 ett. thick secretions expelled and then able to bag rescue. Pt awoke further during this process back to himself but now with ett resumed. [facility] nursing notified by guide alpine and we updated pts mother too. Disposition: ICU Code Status: Full Critical Care Time: 20min, excluding procedure Yung Peres DO PROCEDURE NOTE Portion: DATE: 02/24/17 TIME: 1115 SERVICE: Critical Care Medicine LOCATION OF PROCEDURE: ICU PROCEDURE: Endotracheal intubation PROCEDURALIST: Dr. Peres Consent obtain: No, procedure performed emergently Time out held: Not indicated INDICATION: Acute respiratory failure, resp arrest. PROCEDURE: Emergent intubation post resp arrest unable to ventilate with bag mask ventilation. Patient in supine position. Mac #4 inserted with Grade 2 view obtained. 8.0 endotracheal tube inserted to 23cm lip. Good chest rise with breath sounds appreciated in bilaterally lung stanley with coarse rhonchi. EtCO2 + color change. Portable chest x-ray pending. Patient otherwise tolerated. Yung Peres DO
--- NOTE | 2017-02-24 12:43 | RAD ---
Indication: Respiratory failure postintubation Single frontal view of the chest performed at 1135 hours was reviewed. Comparison is made with previous exam dated February 22, 2017. No mediastinal shift is noted. Cardiomegaly is noted. Interstitial edema is noted. Nasogastric tube is in place. Right-sided central line is in place. ET tube is at the level of T3-T4. Consolidation in the right base and right midlung zone appears to be increased. IMPRESSION: TUBES AND LINES APPEAR IN APPROPRIATE POSITION. INCREASING RIGHT LOWER LOBE CONSOLIDATION IS PRESENT.
[2017-02-24] MEDS: Chlorhexidine MOUTHWASH 0.12%* 15 ML UDC TOPICAL SCH ×3 (14:38→20:59)
[2017-02-24] MEDS: cefTRIAXone VIAL(*) 1,000 MG in NS 0.9% 50 ML* 50 ML IVPB SCH (18:36)
[2017-02-24] MEDS: Propofol* 100 ML IV SCH (21:00)
[2017-02-25] MEDS: Chlorhexidine MOUTHWASH 0.12%* 15 ML UDC TOPICAL SCH ×6 (00:49→20:54)
[2017-02-25] MEDS ORDERED: NS 0.9% 250 ML* 250 ML IV ONE (01:16)
[2017-02-25] MEDS ORDERED: NS 0.9% 1000 ML* 1,000 ML IV SCH (01:30)
[2017-02-25] MEDS: Propofol* 100 ML IV SCH ×2 (06:06→15:09)
[2017-02-25 06:28] LABS: Hematocrit 35 % (42-52); Hemoglobin 11.8 g/dl (14.0-18.0); Mean Corpuscular HGB Conc 34 g/dl (31-36); Mean Corpuscular Hemoglobin 33 pg (27-31); Mean Corpuscular Volume 96 fL (80-94); Mean Platelet Volume 7 um3 (7.4-10.4); Red Blood Count 3.59 10^6/ul (4.0-5.4); Red Cell Distribution Width 14 % (10.5-15)
[2017-02-25 06:30] LABS: Comments Flag Yes
[2017-02-25 06:43] LABS: BUN/Creatinine Ratio 32.3 (8-20); Blood Urea Nitrogen 10 mg/dL (6-24); CO2 Carbon Dioxide 33 mmol/L (22-32); Chloride 101 mmol/L (101-111); EGFR African American 388.4 (>60); Glucose 150 mg/dL (70-100); Phosphorus 2.3 mg/dL (2.5-5.0); Sodium 135 mmol/L (133-145)
[2017-02-25 06:50] LABS: Anion Gap 1 mmol/L (2-11)
[2017-02-25] MEDS: Docusate LIQ* 100 MG/10 ML UDC PO SCH ×2 (08:21→20:54)
[2017-02-25] MEDS: carBAMazepine LIQ(*) 100 MG/5 ML UDC (10 ML) PO SCH ×3 (08:21→18:01)
[2017-02-25] MEDS: Lansoprazole SOLUTAB* 30 MG G TUBE SCH (08:21)
[2017-02-25 08:36] LABS: Magnesium 2.1 mg/dL (1.9-2.7)
[2017-02-25] MEDS: Heparin VIAL(*) 5000 UNITS/ML VIAL (FIVE THOUSAND) SUBCUT SCH ×2 (08:37→20:54)
[2017-02-25 09:53] LABS: ALT 74 U/L (7-52); AST 50 U/L (13-39); Albumin 2.5 g/dL (3.2-5.2); Alkaline Phosphatase 78 U/L (34-104); Globulin 2.2 g/dL (2-4); Total Protein 4.7 g/dL (6.4-8.9)
[2017-02-25] MEDS: Potassium Chloride LIQUID* 20 MEQ PACKET G TUBE SCH ×3 (10:23→20:54)
--- NOTE | 2017-02-25 10:53 | PN ---
Progress Note - Progress Note Note: CRITICAL CARE MEDICINE DATE: 02/25/17 TIME: 950 SUBJECTIVE: Patient seen and examined. Racker center aid present. PHYSICAL EXAM: Vital Signs: Reviewed. Hr 60s. pcv Neurologic: awake, looking about. low dose prop. HEENT: pupils reactive. Cardiovascular: distant, s1, s2 Respiratory: dec r but otherwise no rales. Abdomen: soft, nt, distended Extremities: contracted, dep edema inc Access: midline LABS: Reviewed. IMAGING: Reviewed. MEDICATIONS: Reviewed. ASSESSMENT/PLAN: 51 M Acute hypercarbic resp failure - re-intubation with tbm failure state. 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 PLAN: Neurologic: daily sedation vacation and re-assess comfort and needs. Cardiovascular: HR stable with adequate ventilation. Respiratory: does well with ppv. question is whether he can adapt and in a few days, perhaps with less irritation, liberate again from vent and become dependent again vs again reveal life support dependencies and then question of lobsterman desires with family and state planning. Gastrointestinal: tf. nutrition eval. Renal/Metabolic: low flow yesterday. has vol overload interstially. can dc ivf. wait. then diuretics. Infectious Disease: no infective burden. Hematology: stable. hsq Endocrine: hormonal axis ok, and although cortisol was low end nml in am, would rather reserve against steroids as to not worsen tbm further. Musculoskeletal: mobility as able. Psych/Social: will continue discussions with pts mother and racker and continue to work towards fdc goals. Supportive and preventative care as ordered. SUP: ppi VTE prophylaxis: heparin Mccartney catheter given critical illness, monitoring needs for accurate assessment of RASHAWN and KDIGO criteria for critically ill patients and to avoid potential harms of urinary retention, skin breakdown/ulcers. Disposition: ICU Code Status: Full Critical Care Time: 35min Yung Peres DO
--- NOTE | 2017-02-25 15:49 | RAD ---
INDICATION: Tracheobronchomalacia. COMPARISON: Comparison is made with a prior CT of the chest from March 04, 2011. Correlation is also made with a prior portable chest x-ray study from February 24, 2017. TECHNIQUE: A CT scan of the chest was performed without intravenous contrast in both the inspiratory and expiratory phases. Contiguous axial sections were obtained from the lung apices through the lung bases. Images were reconstructed in the coronal and sagittal planes. FINDINGS: There are small to moderate bilateral pleural effusions and dependent bilateral lower lobe infiltrates with air bronchograms. The patient is status post intubation and nasogastric tube placement. The nasogastric tube extends to the level of the gastroesophageal junction. There is also a catheter which extends from the region of the right pectoralis muscle into the right ventricle possibly representing the residual residual of a prior cardiac pacemaker lead which is unchanged from the prior study. There is collapse of the trachea on the expiratory films of more than 50% consistent with tracheomalacia. No significant enlarged mediastinal or hilar lymph nodes are seen. The heart is within normal limits in size. No pericardial effusion is present. The thoracic aorta is normal in caliber. There is mild deformity of the body of the sternum which is unchanged from the prior CT study possibly related to an old fracture. IMPRESSION: 1. SMALL TO MODERATE SIZE BILATERAL PLEURAL EFFUSIONS AND BILATERAL LOWER LOBE INFILTRATES. 2. TRACHEOMALACIA. 3. THE NASOGASTRIC TUBE EXTENDS TO THE LEVEL OF THE GASTROESOPHAGEAL JUNCTION.
[2017-02-25] MEDS: Potassium & Sodium Phos 250MG* = 1 PACKET G TUBE SCH (20:54)
[2017-02-26] MEDS: Chlorhexidine MOUTHWASH 0.12%* 15 ML UDC TOPICAL SCH ×7 (00:27→23:49)
[2017-02-26] MEDS: Propofol* 100 ML IV SCH (03:29)
[2017-02-26 05:19] LABS: Hematocrit 36 % (42-52); Hemoglobin 12.1 g/dl (14.0-18.0); Mean Corpuscular HGB Conc 34 g/dl (31-36); Mean Corpuscular Hemoglobin 33 pg (27-31); Mean Corpuscular Volume 98 fL (80-94); Mean Platelet Volume 7 um3 (7.4-10.4); Red Blood Count 3.68 10^6/ul (4.0-5.4); Red Cell Distribution Width 14 % (10.5-15); White Blood Count 6.8 10^3/ul (3.5-10.8)
[2017-02-26 05:20] LABS: Comments Flag Yes
[2017-02-26 05:37] LABS: BUN/Creatinine Ratio 39.4 (8-20); Calcium 8.3 mg/dL (8.6-10.3); EGFR African American 361.3 (>60); Magnesium 2.1 mg/dL (1.9-2.7); Phosphorus 2.5 mg/dL (2.5-5.0); Potassium 3.6 mmol/L (3.5-5.0)
[2017-02-26] MEDS: carBAMazepine LIQ(*) 100 MG/5 ML UDC (10 ML) PO SCH ×3 (08:05→18:03)
[2017-02-26] MEDS: Potassium & Sodium Phos 250MG* = 1 PACKET G TUBE SCH ×2 (08:05→20:50)
[2017-02-26] MEDS: Docusate LIQ* 100 MG/10 ML UDC PO SCH ×2 (08:05→20:49)
[2017-02-26] MEDS: Lansoprazole SOLUTAB* 30 MG G TUBE SCH (08:05)
--- NOTE | 2017-02-26 10:29 | PN ---
Progress Note - Progress Note Note: CRITICAL CARE MEDICINE DATE: 02/25/17 TIME: 815 SUBJECTIVE: Patient seen and examined. PHYSICAL EXAM: Vital Signs: Reviewed. Hr 60s-70s. pcv Neurologic: awake, looking about. low dose prop held. HEENT: pupils reactive. Cardiovascular: distant, s1, s2 Respiratory: dec bl but otherwise no rales. Abdomen: soft, nt, inc distention Extremities: contracted, dep edema increased Access: midline LABS: Reviewed. IMAGING: Reviewed. MEDICATIONS: Reviewed. ASSESSMENT/PLAN: 51 M Acute hypercarbic resp failure Severe tracheobronchomalacia h/o seizure diorder microencephaly Sinus alli PLAN: Neurologic: daily sedation vacation and re-assess comfort and needs. Cardiovascular: HR stable with adequate ventilation. Respiratory: CT yesterday revealing further tbm, plus his effusions and atelectasis. Try on aprv today plus diuretics. Could consider repeat thora, but again this fluid is secondary to tbm/atelectasis. Gastrointestinal: tf continued. Renal/Metabolic: promote with lasix today Infectious Disease: no infective burden. Hematology: stable. hsq Endocrine: ok; avoiding steroids if able Musculoskeletal: mobility as able. Psych/Social: will continue discussions with pts mother and racker and continue to work towards terminal press operator goals. Would plan discussion on Tuesday for state involvement as well as looking for another chance at liberation and niv transition if able. Rest for now. Supportive and preventative care as ordered. SUP: ppi VTE prophylaxis: heparin Mccartney catheter given critical illness, monitoring needs for accurate assessment of RASHAWN and KDIGO criteria for critically ill patients and to avoid potential harms of urinary retention, skin breakdown/ulcers. Disposition: ICU Code Status: Full Critical Care Time: 35min Yung Peres DO
[2017-02-26] MEDS: Heparin VIAL(*) 5000 UNITS/ML VIAL (FIVE THOUSAND) SUBCUT SCH ×2 (10:40→20:50)
[2017-02-26] MEDS: Furosemide IV* 10 MG/ML VIAL (40 MG) IV SLOW PU SCH ×2 (10:40→16:33)
[2017-02-26] MEDS: Potassium Chloride LIQUID* 20 MEQ PACKET G TUBE SCH ×2 (14:15→20:50)
[2017-02-27] MEDS: LORazepam INJ* 2 MG/ML 1 ML VIAL IV PUSH PRN ×2 (02:33→16:18)
[2017-02-27] MEDS: Chlorhexidine MOUTHWASH 0.12%* 15 ML UDC TOPICAL SCH ×5 (03:48→19:47)
[2017-02-27] MEDS: Propofol* 100 ML IV SCH (05:11)
[2017-02-27 05:51] LABS: BUN/Creatinine Ratio 38.9 (8-20); Calcium 8.6 mg/dL (8.6-10.3); EGFR African American 326.8 (>60); EGFR Non-African American 254.1 (>60); Magnesium 2.1 mg/dL (1.9-2.7); Phosphorus 3.9 mg/dL (2.5-5.0); Potassium 3.7 mmol/L (3.5-5.0)
[2017-02-27] MEDS: carBAMazepine LIQ(*) 100 MG/5 ML UDC (10 ML) PO SCH ×3 (08:57→18:32)
[2017-02-27] MEDS: Docusate LIQ* 100 MG/10 ML UDC PO SCH ×2 (08:57→20:39)
[2017-02-27] MEDS: Lansoprazole SOLUTAB* 30 MG G TUBE SCH (08:58)
[2017-02-27] MEDS: Potassium Chloride LIQUID* 20 MEQ PACKET G TUBE SCH ×4 (08:58→20:39)
[2017-02-27] MEDS: Potassium & Sodium Phos 250MG* = 1 PACKET G TUBE SCH (08:58)
[2017-02-27] MEDS: Furosemide IV* 10 MG/ML VIAL (40 MG) IV SLOW PU SCH (08:58)
[2017-02-27] MEDS: Heparin VIAL(*) 5000 UNITS/ML VIAL (FIVE THOUSAND) SUBCUT SCH ×2 (08:58→21:50)
[2017-02-27] MEDS ORDERED: acetaZOLAMIDE VIAL* 500 MG in NS 0.9% 50 ML* 50 ML IVPB ONE (10:00)
[2017-02-27] MEDS ORDERED: acetaZOLAMIDE VIAL* 500 MG in NS 0.9% 50 ML* 50 ML IVPB SCH (10:00)
[2017-02-27] MEDS ORDERED: Furosemide IV* 10 MG/ML VIAL (40 MG) IV SLOW PU ONE (10:00)
--- NOTE | 2017-02-27 10:34 | PN ---
Progress Note - Progress Note Note: CRITICAL CARE MEDICINE DATE: 02/26/17 TIME: 1000 SUBJECTIVE: Patient seen and examined. PHYSICAL EXAM: Vital Signs: Reviewed. Hr 60s-70s. aprv and tolerating. Neurologic: awake; low dose prop again given some agitation overnight. HEENT: pupils reactive. Cardiovascular: distant, s1, s2 Respiratory: dec bl clear and tolerating aprv with spont breathing but not much effort. adjusted. Abdomen: soft, nt, dec distention Extremities: contracted, dep edema better Access: midline LABS: Reviewed. IMAGING: Reviewed. MEDICATIONS: Reviewed. ASSESSMENT/PLAN: 51 M Acute hypercarbic resp failure Severe tracheobronchomalacia h/o seizure diorder microencephaly Sinus alli PLAN: Neurologic: daily sedation vacation and re-assess comfort and needs, as has intermittently done ok off sedation but then with agitation intermittent. need to have repetitive or consistent level of needs to help determine comfort. Cardiovascular: HR stable with adequate ventilation. No acute needs. able to mobilize fluid and continue with diuretics today. Respiratory: fluid neg. aprv helping stent open with ppv and if atelectasis can recovery and fluid mobilized, then we can re-consider eval of tansudative effusion and its weight on his lungs, but given his severe tbm, even revealed on ct with ppv, the real question is if his life is sustainable without ppv, or would family/state desire him to remain dependent to chronic ventilation. Would re-eval with all parties tomorrow. Palliative care away until tue, but second opinion from my colleague Dr. Ocampo tomorrow as I will be going off service. Gastrointestinal: tf continued. bowel regimen. Renal/Metabolic: diuretics today; avoid too much contractions Infectious Disease: no infective burden. Hematology: stable. hsq Endocrine: avoiding steroids as able Musculoskeletal: mobility as able. Psych/Social: as above Supportive and preventative care as ordered. SUP: ppi VTE prophylaxis: heparin Mccartney catheter given critical illness, monitoring needs for accurate assessment of RASHAWN and KDIGO criteria for critically ill patients and to avoid potential harms of urinary retention, skin breakdown/ulcers. Disposition: ICU Code Status: Full Critical Care Time: 35min Yung Peres DO
[2017-02-28] MEDS: Chlorhexidine MOUTHWASH 0.12%* 15 ML UDC TOPICAL SCH ×6 (00:15→22:51)
[2017-02-28] MEDS: LORazepam INJ* 2 MG/ML 1 ML VIAL IV PUSH PRN ×2 (03:31→22:45)
[2017-02-28 05:17] LABS: Hematocrit 36 % (42-52); Hemoglobin 11.9 g/dl (14.0-18.0); Mean Corpuscular HGB Conc 34 g/dl (31-36); Mean Corpuscular Hemoglobin 33 pg (27-31); Mean Corpuscular Volume 98 fL (80-94); Mean Platelet Volume 7 um3 (7.4-10.4); Red Blood Count 3.66 10^6/ul (4.0-5.4); Red Cell Distribution Width 14 % (10.5-15); White Blood Count 8.3 10^3/ul (3.5-10.8)
[2017-02-28 05:29] LABS: ALT 77 U/L (7-52); AST 23 U/L (13-39); Albumin 2.8 g/dL (3.2-5.2); Alkaline Phosphatase 82 U/L (34-104); BUN/Creatinine Ratio 42.1 (8-20); Blood Urea Nitrogen 16 mg/dL (6-24); CO2 Carbon Dioxide 38 mmol/L (22-32); Calcium 8.7 mg/dL (8.6-10.3); Chloride 100 mmol/L (101-111); EGFR Non-African American 238.7 (>60); Globulin 2.7 g/dL (2-4); Glucose 120 mg/dL (70-100); Magnesium 2.2 mg/dL (1.9-2.7); Phosphorus 3.9 mg/dL (2.5-5.0); Potassium 3.8 mmol/L (3.5-5.0); Sodium 135 mmol/L (133-145); Total Protein 5.5 g/dL (6.4-8.9)
[2017-02-28] MEDS ORDERED: Atropine SYRINGE* 0.1 MG/ML 10 ML SYRINGE (1 MG) ONE (07:07)
[2017-02-28] MEDS: Potassium Chloride LIQUID* 20 MEQ PACKET G TUBE SCH (07:58)
[2017-02-28] MEDS: carBAMazepine LIQ(*) 100 MG/5 ML UDC (10 ML) PO SCH ×3 (07:59→18:43)
[2017-02-28] MEDS: Lansoprazole SOLUTAB* 30 MG G TUBE SCH (07:59)
[2017-02-28] MEDS: Docusate LIQ* 100 MG/10 ML UDC PO SCH ×2 (07:59→22:49)
--- NOTE | 2017-02-28 08:14 | RAD ---
Indication: Follow-up respiratory failure. Atelectasis. Comparison: February 25, 2017 CT. February 24, 2017 chest radiograph. Technique: Upright AP 0623 hours Report: Endotracheal tube tip 4 cm above the [place]. RIGHT internal jugular central venous catheter tip at the level of the superior vena cava. Nasogastric tube at level of the gastric body. Clear lungs and pleural spaces. Negative for pneumothorax. The heart, pulmonary vasculature, and mediastinal contours are unremarkable. IMPRESSION: Gross resolution of previous pleural effusions and atelectasis.
--- NOTE | 2017-02-28 08:23 | PN ---
Progress Note - Progress Note Note: Progress Note Critical Care 24 hour events/significant events: -stock analyst episode of bradycardia to 20s, desaturation to 70s but recovered. suctioned by no true mucous plugs out. CXR reviewed from this morning , appears clear. -intubated, no sedation, feeds ongoing. doesnt appear in distress. opens eyes intermittently, doesnt follow commands, unable to obtain ROS. Tele: NSR ; noted sinus bradycardia at 705am Vitals: Vital Signs Temp 98.0 F 02/28/17 06:00 Pulse 72 02/28/17 06:00 Resp 10 02/28/17 06:00 BP 114/60 02/28/17 06:00 Pulse Ox 100 02/28/17 06:00 Intake & Output 02/27/17 02/28/17 02/28/17 18:59 06:59 18:59 Intake Total 423 770 Output Total 2500 1075 Balance -7 -305 Weight 191 lb 9.307 oz Intake: Tube Feeding 323 620 Tube Feeding Flush Amount 100 150 Output: [place] 2500 1075 O2/Vent: APRV phigh 25, plow 0; thigh 6.0, tlow .5, fio2 35% Infusions: none Medications: Acetaminophen (Tylenol Tab*) 650 mg PO Q6H PRN PRN Reason: FEVER/PAIN Last Admin: 02/27/17 04:51 Dose: 650 mg Albuterol (Ventolin 2.5 Mg/3 Ml Neb.Hanna*) 2.5 mg INH Q4H PRN PRN Reason: SOB/WHEEZING Carbamazepine (Tegretol Liq(*)) 600 mg PO 1900 [facility] Last Admin: 02/27/17 18:32 Dose: 600 mg Carbamazepine (Tegretol Liq(*)) 400 mg PO 0800,1300 [facility] Last Admin: 02/28/17 07:59 Dose: 400 mg Chlorhexidine Gluconate (Peridex Mouth Wash 0.12%*) 15 ml TOPICAL Q4H [facility] Last Admin: 02/28/17 07:58 Dose: 15 ml Docusate Sodium (Colace Liq*) 200 mg PO BID [facility] Last Admin: 02/28/17 07:59 Dose: 200 mg Heparin Sodium (Porcine) (Heparin Vial(*)) 5,000 units SUBCUT Q12H [facility] Last Admin: 02/27/17 21:50 Dose: 5,000 units Propofol (Diprivan*) 100 mls @ 0 mls/hr IV .(Initial Rate) JAE; Per Protocol PRN Reason: Protocol Last Admin: 02/27/17 05:11 Dose: 2.6 mls/hr Lansoprazole (Prevacid Solutab*) 30 mg G TUBE DAILY JAE Last Admin: 02/28/17 07:59 Dose: 30 mg Lorazepam (Ativan Inj*) 0.5 mg IV PUSH Q4H PRN PRN Reason: ANXIETY Last Admin: 02/28/17 03:31 Dose: 0.5 mg Melatonin (Melatonin (Nf)) 3 mg PO BEDTIME PRN; Protocol PRN Reason: Sleep Last Admin: 02/22/17 00:16 Dose: 3 mg Ondansetron HCl (Zofran Inj*) 4 mg IV Q6H PRN PRN Reason: NAUSEA Potassium Chloride (Klor-Con Liquid*) 20 meq G TUBE TID JAE Stop: 02/28/17 09:01 Last Admin: 02/28/17 07:58 Dose: 20 meq Physical Exam: General: intubated, awakens, doesnt follow commands; not in distress it appears Head: normocephalic, atraumatic HEENT: no pallor, no icterus, moist mucous membranes Neck: soft, supple, no jvd, no stridor CVS: normal rate, normal rhythm, no murmur Resp: bilateral air entry, no rhales, no wheeze, no rhonchi, no acc muscle use Abdomen: soft, nontender, nondistended, bowel sounds present Ext: pulses+, warm, edema 1+ Skin: healed sacral pressure wound but mild fissuring noted, no discharge. Neuro: intubated, awakens, doesnt follow commands. Labs: Laboratory Results - last 24 hr 02/28/17 02/28/17 02/28/17 05:00 05:00 05:00 WBC 8.3 RBC 3.66 L Hgb 11.9 L Hct 36 L MCV 98 H MCH 33 H MCHC 34 RDW 14 Plt Count 111 L MPV 7 L Neut % (Auto) 79.7 Lymph % (Auto) 8.5 L [place] % (Auto) 9.7 H Eos % (Auto) 1.8 Baso % (Auto) 0.3 Absolute Neuts (auto) 6.6 Absolute Lymphs (auto) 0.7 L Absolute Monos (auto) 0.8 Absolute Eos (auto) 0.1 Absolute Basos (auto) 0 Absolute Nucleated RBC 0 Nucleated RBC % 0 Sodium 135 Potassium 3.8 Chloride 100 L Carbon Dioxide 38 H BUN 16 Creatinine 0.38 L Est GFR ( Amer) 307.0 Est GFR (Non-Af Amer) 238.7 BUN/Creatinine Ratio 42.1 H Glucose 120 H Calcium 8.7 Phosphorus 3.9 Magnesium 2.2 Total Bilirubin 0.40 AST 23 ALT 77 H Alkaline Phosphatase 82 Ammonia 68 H Total Protein 5.5 L Albumin 2.8 L Globulin 2.7 Albumin/Globulin Ratio 1.0 Imaging: cxr 02/28 - ett above [place]; no infiltrate/effusion noted. NGT in place Assessment: 51y M pmhx of MR, hydrocephalus s/p AVIONICS MANAGER shunts x4, seizure disorder; presented to [place] with apneic episode at facility and reoccurred in PACU of hospital. FOund to have RLL aspiration pneumonia and right pleural effusion. Thought to have tracheomalacia requiring PPV as well as aspiration pneumonia. Episodes of bradycardia, and even 1 alli-arrest, suspected to be from respiratory arrest/hypoxia induced. -Acute Hypoxic Respiratory Failure -Tracheomalacia -Aspiration pneumonia, resolved -Right para-pneumonic pleural effusion, resolved s/p thoracentesis -Hypoxia induced bradycardia; s/p 1 alli-arrest 02/24 Hydrocephalus s/p AVIONICS MANAGER shunt Seizure disorder Plan: Neuro- stable. cont carbamezapine. no change in status. ammonia elevated. will give lactulose bid for 1-2 days and reassess any change. Noted CT head/EEG findings from last week, no acute changes noted. CVS- currently NSR, noted SB in tele from AM. mucous plugging induced? def was hypoxic transiently during episode. No BB/CCB on board. Cont to monitor. Resp- intubated, 35%. as per previous records and sign out, sensitive to PPV and becomes hypoxic without it. Need to discuss with mother about tracheostomy to maintain airway if she wishes to maintain full care/support for patient. Will need to get in contact with state. Maintain APRV. Pulm toilet. VAP bundle CXR without new infiltrate. Bronchodilators PRN. Abx course completed. ID- afebrile. WBC normal. Abx completed for aspiraton pneumonia. GI-on jevity 1.2, incr rate to 50cc/hr. tolerating. Noted mild elevation of ammonia; ?cause of mental status change. will try lactulose for 1-2 days and reassess. Renal- making urine, neg balance. low dose diuretics daily. gongora in place. Monitor K/Mg and replete as needed. Heme- hg stable. Plt count stable. Endo- tolerating feeds. FS as needed Musculsk-pressure ulcer prophylaxis. Wounds- Wound care to posterior sacrum fissure. Nutrition-OGT feeds, jevity 1.2 @ 50cc/hr DVT prophylaxis: heparin sq GI prophylaxis: PPI po Central Line: no Arterial Line: no Gongora Cathetor: yes Disposition: ICU for respiratory failure; discussion with mother and then with state on next steps; likely trach with continued PPV; need to discuss about code status also. Code Status: full code Total Critical Care time is 35 minutes, excluding procedures/teaching Sha Ocampo MD Sidewalk Repairer (Electronically Signed)
[2017-02-28] MEDS ORDERED: Furosemide IV* 10 MG/ML 2 ML VIAL (20 MG) IV SLOW PU ONE (09:01)
[2017-02-28] MEDS: Heparin VIAL(*) 5000 UNITS/ML VIAL (FIVE THOUSAND) SUBCUT SCH ×2 (11:05→22:46)
[2017-03-01] MEDS: Chlorhexidine MOUTHWASH 0.12%* 15 ML UDC TOPICAL SCH ×7 (00:11→23:56)
[2017-03-01] MEDS: LORazepam INJ* 2 MG/ML 1 ML VIAL IV PUSH PRN (03:07)
[2017-03-01] MEDS: Docusate LIQ* 100 MG/10 ML UDC PO SCH ×2 (08:18→20:03)
[2017-03-01] MEDS: carBAMazepine LIQ(*) 100 MG/5 ML UDC (10 ML) PO SCH ×3 (08:19→20:13)
[2017-03-01] MEDS: Lansoprazole SOLUTAB* 30 MG G TUBE SCH (08:19)
--- NOTE | 2017-03-01 11:11 | PN ---
Progress Note - Progress Note Note: Progress Note Critical Care 24 hour events/significant events: -no further episodes of bradycardia. this morning tachypneic and seemed to be gasping. switched from APRV to AC. -tolerting feeds, no fevers. sleeping this morning. Tele: NSR Vitals: Vital Signs Temp 98.1 F 03/01/17 11:00 Pulse 70 03/01/17 11:00 Resp 13 03/01/17 11:00 BP 139/64 03/01/17 11:00 Pulse Ox 98 03/01/17 11:00 Intake & Output 02/28/17 03/01/17 03/01/17 18:59 06:59 18:59 Intake Total 491 724 Output Total 975 385 Balance -484 339 Weight 193 lb 1.999 oz Intake: Tube Feeding 451 694 Tube Feeding Flush Amount 40 30 Output: [place] 975 385 O2/Vent: CPAP, 35% Infusions: none Medications: Acetaminophen (Tylenol Tab*) 650 mg PO Q6H PRN PRN Reason: FEVER/PAIN Last Admin: 02/27/17 04:51 Dose: 650 mg Albuterol (Ventolin 2.5 Mg/3 Ml Neb.Hanna*) 2.5 mg INH Q4H PRN PRN Reason: SOB/WHEEZING Carbamazepine (Tegretol Liq(*)) 600 mg PO 1900 [facility] Last Admin: 02/28/17 18:43 Dose: 600 mg Carbamazepine (Tegretol Liq(*)) 400 mg PO 0800,1300 [facility] Last Admin: 03/01/17 08:19 Dose: 400 mg Chlorhexidine Gluconate (Peridex Mouth Wash 0.12%*) 15 ml TOPICAL Q4H JAE Last Admin: 03/01/17 08:18 Dose: 15 ml Docusate Sodium (Colace Liq*) 200 mg PO BID JAE Last Admin: 03/01/17 08:18 Dose: 200 mg Heparin Sodium (Porcine) (Heparin Vial(*)) 5,000 units SUBCUT Q12H JAE Last Admin: 02/28/17 22:46 Dose: 5,000 units Propofol (Diprivan*) 100 mls @ 0 mls/hr IV .(Initial Rate) JAE; Per Protocol PRN Reason: Protocol Last Admin: 02/27/17 05:11 Dose: 2.6 mls/hr Lansoprazole (Prevacid Solutab*) 30 mg G TUBE DAILY JAE Last Admin: 03/01/17 08:19 Dose: 30 mg Lorazepam (Ativan Inj*) 0.5 mg IV PUSH Q4H PRN PRN Reason: ANXIETY Last Admin: 03/01/17 03:07 Dose: 0.5 mg Melatonin (Melatonin (Nf)) 3 mg PO BEDTIME PRN; Protocol PRN Reason: Sleep Last Admin: 02/22/17 00:16 Dose: 3 mg Ondansetron HCl (Zofran Inj*) 4 mg IV Q6H PRN PRN Reason: NAUSEA Physical Exam: General: intubated, awakens, sleepy this morning, doesnt follow commands; not in distress it appears Head: normocephalic, atraumatic HEENT: no pallor, no icterus, moist mucous membranes Neck: soft, supple, no jvd, no stridor CVS: normal rate, normal rhythm, no murmur Resp: bilateral air entry, no rhales, no wheeze, no rhonchi, no acc muscle use Abdomen: soft, nontender, nondistended, bowel sounds present Ext: pulses+, warm, edema 1+/trace Skin: healed sacral pressure wound but mild fissuring noted, no discharge. Neuro: intubated, awakens, doesnt follow commands. Labs: Laboratory Results - last 24 hr 02/28/17 02/28/17 02/28/17 05:00 05:00 05:00 WBC 8.3 RBC 3.66 L Hgb 11.9 L Hct 36 L MCV 98 H MCH 33 H MCHC 34 RDW 14 Plt Count 111 L MPV 7 L Neut % (Auto) 79.7 Lymph % (Auto) 8.5 L [place] % (Auto) 9.7 H Eos % (Auto) 1.8 Baso % (Auto) 0.3 Absolute Neuts (auto) 6.6 Absolute Lymphs (auto) 0.7 L Absolute Monos (auto) 0.8 Absolute Eos (auto) 0.1 Absolute Basos (auto) 0 Absolute Nucleated RBC 0 Nucleated RBC % 0 Sodium 135 Potassium 3.8 Chloride 100 L Carbon Dioxide 38 H BUN 16 Creatinine 0.38 L Est GFR ( Amer) 307.0 Est GFR (Non-Af Amer) 238.7 BUN/Creatinine Ratio 42.1 H Glucose 120 H Calcium 8.7 Phosphorus 3.9 Magnesium 2.2 Total Bilirubin 0.40 AST 23 ALT 77 H Alkaline Phosphatase 82 Ammonia 68 H Total Protein 5.5 L Albumin 2.8 L Globulin 2.7 Albumin/Globulin Ratio 1.0 Imaging: cxr 02/28 - ett above [place]; no infiltrate/effusion noted. NGT in place Assessment: 51y M pmhx of MR, hydrocephalus s/p POTTERY KILN BUILDER shunts x4, seizure disorder; presented to [place] with apneic episode at facility and reoccurred in PACU of hospital. FOund to have RLL aspiration pneumonia and right pleural effusion. Thought to have tracheomalacia requiring PPV as well as aspiration pneumonia. Episodes of bradycardia, and even 1 alli-arrest, suspected to be from respiratory arrest/hypoxia induced. -Acute Hypoxic Respiratory Failure, 2/2 to tracheomalacia -Acute Hypercapneic Respiratory Failure, improved -Tracheomalacia -Aspiration pneumonia, resolved -Right para-pneumonic pleural effusion, resolved s/p thoracentesis -Hypoxia induced bradycardia; s/p 1 alli-arrest 02/24 Hydrocephalus s/p POTTERY KILN BUILDER shunt Seizure disorder Plan: Neuro- stable. cont carbamezapine. no change in status. ammonia elevated. cont lactulose bid for 1-2 days and reassess any change. Noted CT head/EEG findings from last week, no acute changes noted. No seizures/vomitting; will re-eval if POTTERY KILN BUILDER shunts need to be assessed, repeat CT? CVS- currently NSR, no further alli episodes. Resp- intubated, fio2 35% on CPAP. Discussed briefly on phone with mother (sera ) about tracheostomy, will talk further today or tomorrow when she comes in. Pulm toilet. VAP bundle. CXR without new infiltrate 02/28. Bronchodilators PRN. Abx course completed. ID- afebrile. WBC normal. Abx completed for aspiraton pneumonia. GI-on jevity 1.2 @ 50cc/hr. tolerating. Lactulose BID. Add free water q6h. Renal- making urine, neg balance. urine output lower and concentrated. hold further lasix, free water added to feeds now. gongora in place. Monitor K/Mg and replete as needed. Heme- hg stable. Plt count stable. Endo- tolerating feeds. FS as needed Musculsk-pressure ulcer prophylaxis. Wounds- Wound care to posterior sacrum fissure. Nutrition-OGT feeds, jevity 1.2 @ 50cc/hr DVT prophylaxis: heparin sq GI prophylaxis: PPI po Central Line: no Arterial Line: no G[place]ora Cathetor: yes Disposition: ICU for respiratory failure; discussion with mother and then with state on next steps; likely trach with continued PPV; need to discuss about code status also. Code Status: full code Total Critical Care time is 35 minutes, excluding procedures/teaching Sha Ocampo MD Assistant Family Teacher (Electronically Signed)
[2017-03-01] MEDS: Heparin VIAL(*) 5000 UNITS/ML VIAL (FIVE THOUSAND) SUBCUT SCH ×2 (11:32→22:15)
--- NOTE | 2017-03-01 16:06 | RAD ---
INDICATION: Evaluate ventriculoperitoneal shunt. COMPARISON: Comparison is made with a prior shunt series from July 12, 2015. TECHNIQUE: AP and lateral films of the head and neck and AP views of the chest and abdomen were obtained. FINDINGS: There is a ventriculoperitoneal shunt catheter present on the right side. The catheter extends distally into the abdomen. The catheter tip is located in the lower abdomen and appears to be in the region of the midline. On one view in the neck there is suggestion of a break in the catheter which does not appear to be a valve site although is not confirmed in the other views. IMPRESSION: THERE APPEARS TO BE A BREAK IN THE CATHETER IN THE PROXIMAL PORTION OF THE NECK WHICH IS ONLY VISUALIZED ON ONE VIEW. A CT OF THE NECK WITHOUT CONTRAST MAY BE HELPFUL IN FURTHER CONFIRMATION.
--- NOTE | 2017-03-01 19:37 | RAD ---
INDICATION: Cholelithiasis COMPARISON: CT chest February 25, 2017 TECHNIQUE: Longitudinal and transverse scans of the right upper quadrant were obtained. Doppler interrogation of the hepatic and portal venous system was performed. FINDINGS: Liver: The liver is normal in size and echogenicity. There are no focal masses. The liver measures 18.3 cm in cephalocaudal dimension. Vessels: There is normal hepatic and portal venous flow. Bile ducts: There is no evidence of intrahepatic or extrahepatic ductal dilatation. The common duct measures 0.3 cm. Gallbladder: There is cholelithiasis. There is no thickening gallbladder wall or pericholecystic fluid.. Pancreas: Not seen due to interfering bowel gas Right kidney: The right kidney is normal in size and echogenicity. There are no masses or calculi. There is no evidence of hydronephrosis. The right kidney measures 11.4 x 5.4 x 5.7 cm. IVC and aorta: The aorta and superior vena cava appear normal. Fluid: There is no ascites. Other: Small right-sided effusion. IMPRESSION: CHOLELITHIASIS WITHOUT THICKENING OF THE GALLBLADDER WALL OR PERICHOLECYSTIC FLUID. SMALL RIGHT-SIDED EFFUSION.
[2017-03-02] MEDS: Chlorhexidine MOUTHWASH 0.12%* 15 ML UDC TOPICAL SCH ×6 (04:28→23:54)
[2017-03-02 05:58] LABS: Hematocrit 33 % (42-52); Hemoglobin 11.4 g/dl (14.0-18.0); Mean Corpuscular HGB Conc 34 g/dl (31-36); Mean Corpuscular Hemoglobin 33 pg (27-31); Mean Corpuscular Volume 96 fL (80-94); Mean Platelet Volume 8 um3 (7.4-10.4); Red Blood Count 3.47 10^6/ul (4.0-5.4); Red Cell Distribution Width 14 % (10.5-15); White Blood Count 6.2 10^3/ul (3.5-10.8)
[2017-03-02 06:23] LABS: BUN/Creatinine Ratio 41.7 (8-20); Blood Urea Nitrogen 15 mg/dL (6-24); CO2 Carbon Dioxide 37 mmol/L (22-32); Calcium 8.6 mg/dL (8.6-10.3); Chloride 95 mmol/L (101-111); EGFR African American 326.8 (>60); EGFR Non-African American 254.1 (>60); Glucose 114 mg/dL (70-100); Sodium 133 mmol/L (133-145)
[2017-03-02 07:33] LABS: Anion Gap 1 mmol/L (2-11)
[2017-03-02] MEDS: carBAMazepine LIQ(*) 100 MG/5 ML UDC (10 ML) PO SCH ×3 (08:54→18:30)
[2017-03-02] MEDS: Docusate LIQ* 100 MG/10 ML UDC PO SCH ×2 (08:54→20:38)
[2017-03-02] MEDS: Lansoprazole SOLUTAB* 30 MG G TUBE SCH (08:54)
[2017-03-02] MEDS: Heparin VIAL(*) 5000 UNITS/ML VIAL (FIVE THOUSAND) SUBCUT SCH ×2 (09:46→21:01)
--- NOTE | 2017-03-02 10:06 | PN ---
Progress Note - Progress Note Note: Progress Note Critical Care 24 hour events/significant events: -no further bradycardia noted, tolerating PS trial without issue. -awake, doesnt follow commands, no distress noted. -tolerting feeds, no fevers; secretions Tele: NSR Vitals: Vital Signs Temp 97.9 F 03/02/17 08:00 Pulse 66 03/02/17 08:00 Resp 15 03/02/17 08:00 BP 129/56 03/02/17 07:00 Pulse Ox 97 03/02/17 08:00 Intake & Output 03/01/17 03/02/17 03/02/17 18:59 06:59 18:59 Intake Total 660 1410 Output Total 425 775 Balance 235 635 Weight 196 lb 6.91 oz Intake: Tube Feeding 360 750 Tube Feeding Flush Amount 300 660 Output: Gongora 425 775 Other: Date of Last Bowel 03/01/17 Movement # Bowel Movements 1 Estimated Stool Amount Medium O2/Vent: CPAP, 35% Infusions: none Medications: Acetaminophen (Tylenol Tab*) 650 mg PO Q6H PRN PRN Reason: FEVER/PAIN Last Admin: 02/27/17 04:51 Dose: 650 mg Albuterol (Ventolin 2.5 Mg/3 Ml Neb.Hanna*) 2.5 mg INH Q4H PRN PRN Reason: SOB/WHEEZING Carbamazepine (Tegretol Liq(*)) 600 mg PO 1900 [facility] Last Admin: 03/01/17 20:13 Dose: 600 mg Carbamazepine (Tegretol Liq(*)) 400 mg PO 0800,1300 [facility] Last Admin: 03/02/17 08:54 Dose: 400 mg Chlorhexidine Gluconate (Peridex Mouth Wash 0.12%*) 15 ml TOPICAL Q4H [facility] Last Admin: 03/02/17 08:54 Dose: 15 ml Docusate Sodium (Colace Liq*) 200 mg PO BID [facility] Last Admin: 03/02/17 08:54 Dose: 200 mg Heparin Sodium (Porcine) (Heparin Vial(*)) 5,000 units SUBCUT Q12H [facility] Last Admin: 03/02/17 09:46 Dose: 5,000 units Lansoprazole (Prevacid Solutab*) 30 mg G TUBE DAILY [facility] Last Admin: 03/02/17 08:54 Dose: 30 mg Lorazepam (Ativan Inj*) 0.5 mg IV PUSH Q4H PRN PRN Reason: ANXIETY Last Admin: 03/01/17 03:07 Dose: 0.5 mg Melatonin (Melatonin (Nf)) 3 mg PO BEDTIME PRN; Protocol PRN Reason: Sleep Last Admin: 02/22/17 00:16 Dose: 3 mg Ondansetron HCl (Zofran Inj*) 4 mg IV Q6H PRN PRN Reason: NAUSEA Physical Exam: General: intubated, awake, doesnt follow commands; not in distress Head: normocephalic, atraumatic HEENT: no pallor, no icterus, moist mucous membranes Neck: soft, supple, no jvd, no stridor CVS: normal rate, normal rhythm, no murmur Resp: bilateral air entry, no rhales, no wheeze, no rhonchi, no acc muscle use Abdomen: soft, nontender, nondistended, bowel sounds present Ext: pulses+, warm, edema 1+/trace Skin: healed sacral pressure wound but mild fissuring noted, no discharge. Neuro: intubated, awake, doesnt follow commands. Labs: Laboratory Results - last 24 hr 03/02/17 03/02/17 03/02/17 05:17 05:17 07:51 WBC 6.2 RBC 3.47 L Hgb 11.4 L Hct 33 L MCV 96 H MCH 33 H MCHC 34 RDW 14 Plt Count 104 L MPV 8 Sodium 133 Potassium TNP TNP Chloride 95 L Carbon Dioxide 37 H Anion Gap 1 L BUN 15 Creatinine 0.36 L Est GFR ( Amer) 326.8 Est GFR (Non-Af Amer) 254.1 BUN/Creatinine Ratio 41.7 H Glucose 114 H Calcium 8.6 Imaging: cxr 02/28 - ett above [place]; no infiltrate/effusion noted. NGT in place Assessment: 51y M pmhx of MR, hydrocephalus s/p BRASS BOBBIN WINDER shunts x4, seizure disorder; presented to [facility] with apneic episode at facility and reoccurred in PACU of hospital. FOund to have RLL aspiration pneumonia and right pleural effusion. Thought to have tracheomalacia requiring PPV as well as aspiration pneumonia. Episodes of bradycardia, and even 1 alli-arrest, suspected to be from respiratory arrest/hypoxia induced. -Acute Hypoxic Respiratory Failure, 2/2 to tracheomalacia -Acute Hypercapneic Respiratory Failure, improved -Tracheomalacia -Aspiration pneumonia, resolved -Right para-pneumonic pleural effusion, resolved s/p thoracentesis -Hypoxia induced bradycardia; s/p 1 alli-arrest 02/24 Hydrocephalus s/p BRASS BOBBIN WINDER shunt Seizure disorder Plan: Neuro- stable. cont carbamezapine. no change in status. not much stool with lactulose, will redose for 2 doses again. Noted Shunt series - ?break in BRASS BOBBIN WINDER in neck in certain view. Will obtain CT neck to eval BRASS BOBBIN WINDER shunt. Neurology consult called and pending. No seizures/vomitting. CVS- currently NSR, no further alli episodes. Add free water to tube feeds, making urine. will eval for diuretics tomorrow Resp- intubated, fio2 35% on CPAP. Discussed briefly on phone with mother (sera ) about tracheostomy, need to have discussion about further trach. She wanted neuro status eval first. Pulm toilet. VAP bundle. CXR without new infiltrate . Bronchodilators PRN. Abx course completed. Secretions being suctioned, noted , monitor. ID- afebrile. WBC normal. Abx completed for aspiraton pneumonia. GI-on jevity 1.2 @ 50cc/hr. tolerating. Lactulose x2 doses. Cont free water q6h. USG GB showing cholelithiasis, no obstruction/cholecystitis. Renal- making urine, pos balance. Free water ongoing, still pos edema in LE. will re-eval tomorrow for diuretics. gongora in place. Monitor K/Mg and replete as needed. Heme- hg stable. Plt count stable. Endo- tolerating feeds. FS as needed Musculsk-pressure ulcer prophylaxis. Wounds- Wound care to posterior sacrum fissure. Nutrition-OGT feeds, jevity 1.2 @ 50cc/hr DVT prophylaxis: heparin sq GI prophylaxis: PPI po Central Line: no Arterial Line: no Gongora Cathetor: yes Disposition: ICU for respiratory failure; discussion with mother and then with state on next steps; needs trach with positive pressure ventilation; need to discuss about code status with her; she is hesitant about trach and PEG as far as quality of life will go. Code Status: full code Total Critical Care time is 30 minutes, excluding procedures/teaching Sha Ocampo MD [facility] [employer] (Electronically Signed)
--- NOTE | 2017-03-02 19:09 | CONS ---
NEUROLOGY CONSULTATION: DATE OF CONSULT: 03/02/17 REQUESTING PROVIDER: Dr. Ocampo. REASON FOR CONSULT: Question of shunt malfunction, depressed mental status. HISTORY OF PRESENT ILLNESS: Tim Abdi is a 51-year-old man with a history of hydrocephalus, status post POSTAL SUPERINTENDENT shunt with multiple revisions, history of medically intractable epilepsy, who follows with Dr. Araiza and is treated with carbamazepine. He is admitted to the hospital with respiratory failure that is thought to be due to tracheomalacia. He was admitted on 02/19/17 after an apparent respiratory event at [facility] and was intubated on 02/22/17 due to recurrent episodes of hypoxia, respiratory arrest, and associated bradycardia. He has been found to have a right lower lobe aspiration pneumonia and a right pleural effusion, and had a respiratory arrest in the PACU. He also experienced one episode of brief cardiac arrest due to bradycardia, which was suspected to be from respiratory arrest/hypoxia. He has been off sedation, but remains intubated secondary to the tracheomalacia. He is now felt to be ventilator dependent per Dr. Ocampo who has been having discussions with the family regarding trach and PEG placement. However, the family has expressed concern about his mental status. Specifically, it appears that the patient's mother is concerned that his shunt is malfunctioning, causing some of his problems here in the hospital. In addition, she feels that he is not at his baseline in terms of his mental status. I called the mother after my examination of the patient. She indicates that she has had multiple experiences with his shunts failing in the past and he typically has increased seizures and vomiting, but she wonders if his shunt is backing up to a more mild degree and perhaps pressing on his lungs. She also indicates that in the past the fluid has drained into places where it should not , including the lining of his lung, and she wonders if this is happening now as well. Furthermore, she says he is sleeping more than normal and she does not think he should be doing that since he is on the ventilator without sedation. On my evaluation of Tim, he appears in mild discomfort related to being on the ventilator. Neurology consultation is requested to weigh in on the patient's mental status and the POSTAL SUPERINTENDENT shunt in light of the care decisions that need be made in the near future. PAST MEDICAL HISTORY: 1. Intellectual disability. 2. Hydrocephalus, status post POSTAL SUPERINTENDENT shunt x4. 3. Medically intractable epilepsy. 4. Tracheomalacia. 5. Aspiration pneumonia and right parapneumonic pleural effusion both of which are resolved. 6. Hypoxia-induced bradycardia, status post one alli arrest on 02/24/17. CURRENT MEDICATIONS: Include: 1. Tylenol 650 mg q.6 p.r.n. 2. Albuterol nebulizer p.r.n. 3. Carbamazepine 400 mg at 8 am and 1300, and 600 mg at 1900. 4. Chlorhexidine mouthwash. 5. Colace twice daily. 6. Heparin DVT prophylaxis. 7. Lansoprazole. 8. Ativan p.r.n. anxiety, last administered on 03/01/17 at 3 am. 9. Melatonin 3 mg at bedtime as needed, last administered on 02/22/17. 10. Zofran p.r.n., not administered. ALLERGIES: LEVOFLOXACIN. SOCIAL HISTORY: He lives at [facility]. He does not smoke or drink alcohol. REVIEW OF SYSTEMS: Unobtainable from the patient. PHYSICAL EXAMINATION: Vital Signs: Temperature 98.7, blood pressure 118/58, heart rate 86, and oxygen saturation is 94% on 25% FiO2. General: On general examination, he is in mild distress, intermittently raising his head up off the pillow. His eyes are open and he appears awake. He is microcephalic. He has contractures at the elbows bilaterally and short heel cords. He is of short stature. His heart is in a regular rate and rhythm. He has coarse breath sounds bilaterally. He has some overgrowth of the toenails on the left foot. There are no obvious skin rashes. Neurologic Examination: He does not reliably follow commands. His gaze is dysconjugate, but he does appear to direct his gaze towards the examiner's position in the room. He does not consistently blink to threat in either visual stanley. Pupils are equal, round and reactive from 3 to 2 mm bilaterally. There is no forced gaze deviation. Facial symmetry is difficult to assess with the ET tube in place. He does appear to have a gag intact. He has increased tone in his upper and lower extremities. He withdraws to noxious stimuli in all 4 extremities, but moves his right leg more briskly than his left. Reflexes are 2+ in the upper extremities and at the knees, with mute toes bilaterally. DIAGNOSTIC STUDIES/LAB DATA: His CBC shows an anemia with a hematocrit of 33 and hemoglobin of 11.4, and platelets of 104, which are slightly improved from a low of 94 on 02/24/17 and 02/26/17. Chemistry panel shows an elevated carbon dioxide of 37 and low chloride of 95, with a BUN to creatinine ratio of 41.7. AST is 23, ALT is 77 as of 02/28/17. His ammonia was 68 on 02/28/17 and this has not been rechecked. He had been receiving lactulose x2 doses on 02/28/17 and 03/01/17. His carbamazepine level on 02/21/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 IMPRESSION: Tim Abdi is a 51-year-old man with a history of intellectual disability, intractable epilepsy and hydrocephalus with multiple POSTAL SUPERINTENDENT shunt revisions who has had respiratory arrest and has now become ventilator dependent. He experiences bradycardia when attempts are made to wean him from the ventilator and has arrested as a result of this. It is not clear that there has been any prolonged period of hypoxia either prior to his admission here or since his admission, which may contribute to any change in his mental status, though a hypoxic ischemic insult would still be on the differential if his mental status is not at his baseline. Yesterday, in talking with Dr. Ocampo, I had recommended a shunt series be done, which suggested the possibility of a break in the catheter and an attempt was made to further characterize this with the CT of the neck, but he was unable to tolerate the study due to bradycardia. Another attempt will be made tomorrow to see if there could be shunt malfunction. If further investigations into shunt function are warranted or desired, I would suggest contacting Neurosurgery. If there is concern about hypoxic ischemic injury and if the patient could tolerate, consideration could be given to MRI scan of the brain. However, obtaining a repeat CT of the brain might also be helpful in determining whether there appears to be any shunt malfunction with development of obstructive hydrocephalus. Thank you for this consultation. [id number]/[facility] #: [id number] [facility]
[2017-03-03] MEDS: LORazepam INJ* 2 MG/ML 1 ML VIAL IV PUSH PRN ×2 (00:54→22:28)
[2017-03-03] MEDS: Chlorhexidine MOUTHWASH 0.12%* 15 ML UDC TOPICAL SCH ×5 (04:02→19:54)
[2017-03-03 06:27] LABS: Urine Bacteria Absent (Absent); Urine Bilirubin Negative (Negative); Urine Glucose Negative (Negative); Urine Nitrite Negative (Negative)
--- NOTE | 2017-03-03 07:21 | RAD ---
INDICATION: Evaluate for ventricular peritoneal shunt fracture. COMPARISON: Correlation is made with a prior shunt series from March 01, 2017. TECHNIQUE: A CT scan of the neck was performed without intravenous contrast. Contiguous axial sections were obtained from the skull base through the lung apices. Images were reconstructed in the coronal and sagittal planes. The study is limited without contrast. FINDINGS: There is motion artifact throughout the exam limiting the study. The ventricular peritoneal shunt catheter cannot be evaluated on this study. There are orogastric and endotracheal tubes present.. The lung apices appear clear. The visualized portion of the paranasal sinuses and mastoid air cells appear clear. IMPRESSION: EXTREMELY LIMITED STUDY DUE TO MOTION ARTIFACT. THE VENTRICULAR PERITONEAL SHUNT CATHETER CANNOT BE EVALUATED ON THIS STUDY, CONSIDER REPEAT STUDY WITH SEDATION.
[2017-03-03] MEDS: Lansoprazole SOLUTAB* 30 MG G TUBE SCH (09:50)
[2017-03-03] MEDS: carBAMazepine LIQ(*) 100 MG/5 ML UDC (10 ML) PO SCH ×3 (09:50→18:21)
[2017-03-03] MEDS: Docusate LIQ* 100 MG/10 ML UDC PO SCH ×2 (09:50→19:54)
[2017-03-03] MEDS: Heparin VIAL(*) 5000 UNITS/ML VIAL (FIVE THOUSAND) SUBCUT SCH (09:51)
--- NOTE | 2017-03-03 11:04 | PN ---
Progress Note - Progress Note Note: Progress Note Critical Care 24 hour events/significant events: -bradycardiac during CT neck study. -overnight no further events noted -more awake this morning Tele: none Vitals: Vital Signs Temp 99.7 F 03/03/17 10:00 Pulse 90 03/03/17 10:00 Resp 14 03/03/17 10:55 BP 167/80 03/03/17 10:00 Pulse Ox 97 03/03/17 10:00 Intake & Output 03/02/17 03/03/17 03/03/17 18:59 06:59 18:59 Intake Total 456 1109 200 Output Total 400 800 Balance 56 309 200 Weight 193 lb 9.054 oz Intake: Tube Feeding 356 809 Tube Feeding Flush Amount 100 200 200 NG Tube [place]rr[place] Amount 100 Output: Gongora 400 800 Other: Date of Last Bowel 03/02/2017 Movement # Bowel Movements 1 1 Estimated Stool Amount Large Large Large O2/Vent: CPAP, 35% Infusions: none Medications: Acetaminophen (Tylenol Tab*) 650 mg PO Q6H PRN PRN Reason: FEVER/PAIN Last Admin: 02/27/17 04:51 Dose: 650 mg Albuterol (Ventolin 2.5 Mg/3 Ml Neb.Hanna*) 2.5 mg INH Q4H PRN PRN Reason: SOB/WHEEZING Carbamazepine (Tegretol Liq(*)) 600 mg PO 1900 [facility] Last Admin: 03/02/17 18:30 Dose: 600 mg Carbamazepine (Tegretol Liq(*)) 400 mg PO 0800,1300 [facility] Last Admin: 03/03/17 09:50 Dose: 400 mg Chlorhexidine Gluconate (Peridex Mouth Wash 0.12%*) 15 ml TOPICAL Q4H [facility] Last Admin: 03/03/17 09:50 Dose: 15 ml Docusate Sodium (Colace Liq*) 200 mg PO BID [facility] Last Admin: 03/03/17 09:50 Dose: 200 mg Heparin Sodium (Porcine) (Heparin Vial(*)) 5,000 units SUBCUT Q12H [facility] Last Admin: 03/03/17 09:51 Dose: 5,000 units Lansoprazole (Prevacid Solutab*) 30 mg G TUBE DAILY [facility] Last Admin: 03/03/17 09:50 Dose: 30 mg Lorazepam (Ativan Inj*) 0.5 mg IV PUSH Q4H PRN PRN Reason: ANXIETY Last Admin: 03/03/17 00:54 Dose: 0.5 mg Melatonin (Melatonin (Nf)) 3 mg PO BEDTIME PRN; Protocol PRN Reason: Sleep Last Admin: 02/22/17 00:16 Dose: 3 mg Midazolam HCl (Versed 2mg/2ml*) 2 mg IV Q2HR PRN PRN Reason: AGITATION Stop: 03/03/17 16:01 Ondansetron HCl (Zofran Inj*) 4 mg IV Q6H PRN PRN Reason: NAUSEA Physical Exam: General: intubated, awake, doesnt follow commands; not in distress Head: normocephalic, atraumatic HEENT: no pallor, no icterus, moist mucous membranes Neck: soft, supple, no jvd, no stridor CVS: normal rate, normal rhythm, no murmur Resp: bilateral air entry, no rhales, no wheeze, no rhonchi, no acc muscle use Abdomen: soft, nontender, nondistended, bowel sounds present Ext: pulses+, warm, edema 1+/trace Skin: healed sacral pressure wound but mild fissuring noted, no discharge. Neuro: intubated, awake, doesnt follow commands. Labs: Laboratory Results - last 24 hr 03/03/17 05:35 Urine Color Red A Urine Appearance Cloudy Urine pH 8.0 Ur Specific [place] 1.015 Urine Protein 2+(100 mg/dl) H Urine Ketones Negative Urine Blood 3+ H Urine Nitrate Negative Urine Bilirubin Negative Urine Urobilinogen Negative Ur Leukocyte Esterase Trace H Urine WBC (Auto) 3+(>20/hpf) H Urine RBC (Auto) 3+(>10/hpf) H Urine Bacteria Absent Urine Glucose Negative Urine Ascorbic Acid * H Imaging: cxr 02/28 - ett above [place]; no infiltrate/effusion noted. 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 FOund to have RLL aspiration pneumonia and right pleural effusion. Thought to have tracheomalacia requiring PPV as well as aspiration pneumonia. Episodes of bradycardia, and even 1 alli-arrest, suspected to be from respiratory arrest/hypoxia induced. -Acute Hypoxic Respiratory Failure, 2/2 to tracheomalacia -Acute Hypercapneic Respiratory Failure, improved -Tracheomalacia -Aspiration pneumonia, resolved -Right para-pneumonic pleural effusion, resolved s/p thoracentesis -Hypoxia induced bradycardia; s/p 1 alli-arrest 02/24 Hydrocephalus s/p WATER SOFTENER INSTALLER shunt Seizure disorder Plan: Neuro- stable. cont carbamezapine. more awake. neuro consult reviewed, agree there could be some component of hypoxic injury also. Noted Shunt series - ? break in WATER SOFTENER INSTALLER in neck in certain view. CT not great study; repat CT neck and head today, give mild sedation before hand. No seizures/vomitting. CVS- currently NSR, no further alli episodes. Add free water to tube feeds, making urine. will eval for diuretics tomorrow Resp- intubated, fio2 35% on CPAP. Pulm toilet. VAP bundle. CXR without new infiltrate 02/28. Bronchodilators PRN. Abx course completed. Secretions being suctioned, noted, monitor. CXR today due to secretions, eval for infiltrate ID- afebrile. WBC normal. Abx completed for aspiraton pneumonia. Urinalysis mildly abnormal. GI-on jevity 1.2 @ 50cc/hr. tolerating. Cont free water q6h. USG GB showing cholelithiasis, no obstruction/cholecystitis. Renal- making urine, pos balance. Free water ongoing, still pos edema in LE. check BMP today. gongora in place. Monitor K/Mg and replete as needed. Heme- hg stable. Plt count stable. Endo- tolerating feeds. FS as needed Musculsk-pressure ulcer prophylaxis. Wounds- Wound care to posterior sacrum fissure. Nutrition-OGT feeds, jevity 1.2 @ 50cc/hr DVT prophylaxis: heparin sq GI prophylaxis: PPI po Central Line: no Arterial Line: no Gongora Cathetor: yes Disposition: ICU for respiratory failure; discussion with mother and then with state on next steps; needs trach with positive pressure ventilation; need to discuss about code status with her; she is hesitant about trach and PEG as far as quality of life will go. Code Status: full code Total Critical Care time is 30 minutes, excluding procedures/teaching Sha Ocampo MD [employer] [facility] (Electronically Signed)
--- NOTE | 2017-03-03 12:46 | RAD ---
INDICATION: Evaluate for pneumonia COMPARISON: Most recent comparison chest x-rays dated February 28, 2017 TECHNIQUE: Single AP portable view of the chest was obtained. FINDINGS: Image quality is compromised due to the relative inferiority of a portable chest x-ray. Stable iatrogenic findings include a gastric tube with the tip terminating overlying the gas-filled fundus, an endotracheal tube in appropriate position and a right neck central line with the tip terminating at the cavoatrial junction. The lung volumes appear to have decreased since the previous chest x-ray which May simply BE due to poor inspiratory effort. There is density obscuring the right lung base is not seen on the previous chest x-ray which could represent consolidation and/or pleural effusion. Similarly, but to a lesser extent there is density obscuring the left hemidiaphragm and left costophrenic angle. IMPRESSION: 1. There has been relative decrease in aeration when compared to the previous chest x-ray which could be due to poor inspiratory effort. 2. Densities seen at the right greater than left lung bases could represent pleural effusion and/or consolidation. 3. Lines and tubes appear to be appropriately positioned and are not changed significantly from the previous chest x-ray.
[2017-03-03] MEDS ORDERED: Alteplase (CATHFLO)* 2 MG VIAL IV ONE (13:00)
[2017-03-03 13:54] LABS: Hematocrit 34 % (42-52); Hemoglobin 11.5 g/dl (14.0-18.0); Mean Corpuscular HGB Conc 34 g/dl (31-36); Mean Corpuscular Hemoglobin 33 pg (27-31); Mean Corpuscular Volume 97 fL (80-94); Mean Platelet Volume 7 um3 (7.4-10.4); Red Blood Count 3.49 10^6/ul (4.0-5.4); Red Cell Distribution Width 14 % (10.5-15); White Blood Count 7.7 10^3/ul (3.5-10.8)
[2017-03-03 14:04] LABS: BUN/Creatinine Ratio 37.1 (8-20); Calcium 8.5 mg/dL (8.6-10.3); EGFR African American 337.6 (>60); EGFR Non-African American 262.5 (>60); Potassium 3.5 mmol/L (3.5-5.0)
[2017-03-03] MEDS: Midazolam* 1 MG/ML 2 ML VIAL (2 MG) IV PRN ×2 (14:39→15:48)
--- NOTE | 2017-03-03 16:30 | RAD ---
INDICATION: Microcephaly, hydrocephalus and delirium. COMPARISON: Comparison is made with a prior CT of the brain from February 21, 2017. Correlation is also made with a study from July 12, 2015. TECHNIQUE: Contiguous axial sections of the brain were obtained from the skull base to the vertex without contrast. FINDINGS: There are several ventricular shunt catheters. These appear unchanged from the prior exam. One of the catheter tips projects in the region of the interhemispheric fissure. The other projects over the region of the right medial temporal lobe. The catheters enter from the posterior parietal approach. There the ventricles appear small in caliber without evidence for hydrocephalus. The appearance is unchanged from the prior exams. There is a focal area of decreased density in the posterior right parietal adnexal regions most consistent with an area of encephalomalacia which is unchanged. There is scaphocephaly present. No significant focal osseous abnormality is seen. The visualized portion of the paranasal sinuses and mastoid air cells appear clear. IMPRESSION: NO EVIDENCE FOR ACUTE FINDING OR SIGNIFICANT CHANGE FROM THE PRIOR STUDY.
--- NOTE | 2017-03-03 16:30 | RAD ---
INDICATION: Evaluate for ventriculoperitoneal shunt fracture. COMPARISON: Same day CT of the brain TECHNIQUE: A CT scan of the neck was performed without intravenous contrast. Contiguous axial sections were obtained from the skull base through the lung apices. Images were reconstructed in the coronal and sagittal planes. FINDINGS: The patient's ventriculoperitoneal shunt is observed overlying the right upper chest and remains continuous until the level of the occiput. At this point there appears to be discontinuity of the shunt (axial image 87 through 91). The endotracheal tube appears to be appropriately positioned below the larynx approximately at the level of the upper sternum. The oral gastric tube is located in the esophagus and is not seen beyond the lower margin of the CT examination. Degenerative changes of the cervical spine include loss of intervertebral disc height and marginal osteophyte formation. There is no lymphadenopathy or soft tissue abnormality of the neck. There are small bilateral pleural effusions. Overlying the right lung apex is a partially visualized catheter that terminates beyond the lower margin of the image. IMPRESSION: 1. The ventriculoperitoneal shunt is seen from the right upper chest over the right neck and abruptly becomes discontinuous at the level of the occiput as described above. 2. A catheter fragment is partially visualized overlying the right lung apex of uncertain clinical significance. 3. Small bibasilar pleural effusions are partially visualized.
[2017-03-04] MEDS: Chlorhexidine MOUTHWASH 0.12%* 15 ML UDC TOPICAL SCH ×6 (00:48→19:56)
[2017-03-04] MEDS ORDERED: Acetaminophen ADULT LIQ* 650 MG/20.3 ML UDC G TUBE PRN (05:00)
[2017-03-04] MEDS ORDERED: Acetaminophen ADULT LIQ* 650 MG/20.3 ML UDC ONE (05:00)
[2017-03-04] MEDS: LORazepam INJ* 2 MG/ML 1 ML VIAL IV PUSH PRN (05:47)
[2017-03-04] MEDS ORDERED: Ibuprofen TAB* 400 MG PO ONE (06:32)
[2017-03-04] MEDS ORDERED: Ibuprofen ADULT LIQ* 600 MG/30 ML UDC PO ONE (06:35)
[2017-03-04] MEDS ORDERED: EPINEPHrine SYR 0.1 MG/ML* (1:10,000) SYRINGE ONE (06:50)
[2017-03-04] MEDS ORDERED: Propofol* 100 ML ONE (07:00)
--- NOTE | 2017-03-04 07:25 | PN ---
Progress Note - Progress Note Date of Service: 03/04/17 Note: ABC note Upon arrival, nursing reports patient had been "thrashing" his head, apparently agitated by fever & discomfort. He had received lorazepam & acetaminophen without improvement. Suddenly he alli'ed down into PEA/asystole. He received 1 round of CPR & epinephrine. Suctioning yielded what appears to be tube feed from ET. It is likely he had tube feed pooled above the ET cuff and the thrashing allowed for aspiration and respiratory occlusion. He quickly returned to alertness and palpable circulation. Sedation was started with propofol and piperacillin/tazobactam was initiated for the fever & likely aspiration. Keven Ocampo MD Lead Caster apprised.
[2017-03-04] MEDS ORDERED: Dexmedetomidine* 200 MCG/2 ML 2 ML VIAL ONE (07:38)
--- NOTE | 2017-03-04 07:39 | PN ---
Hospitalist Progress Note HOSPITALIST ABC ALERT ADDENDUM I was present with Dr. Palmer during code and agree with his assessment. Suspect patient likely aspirated and respiratory compromise caused bradycardia - -> PEA. After one round of CPR/epi, spontaneous circulation returned with good BP and SVT on monitor. Patient is febrile and suspect source is aspiration pneumonia - check CxR and start Zosyn. FiO2 and PEEP requirements have increased now. Will start sedation as he is agitated now. As per RN, Ativan and Versed have not worked well before. Will start Propofol and monitor. Will continue to monitor closely and sign out to Dr. Ocampo.
[2017-03-04] MEDS: carBAMazepine LIQ(*) 100 MG/5 ML UDC (10 ML) PO SCH ×3 (07:57→17:34)
[2017-03-04] MEDS ORDERED: Propofol* 100 ML IV SCH (08:00)
[2017-03-04] MEDS ORDERED: Zosyn per Pharmacy* NOTE FOLLOW UP SCH ×2 (08:00→09:00)
[2017-03-04] MEDS ORDERED: Dexmedetomidine* 200 MCG in NS 0.9% 50 ML* 48 ML IVPB SCH (08:00)
[2017-03-04] MEDS: Lansoprazole SOLUTAB* 30 MG G TUBE SCH (08:06)
[2017-03-04] MEDS: Docusate LIQ* 100 MG/10 ML UDC PO SCH ×2 (08:06→19:57)
--- NOTE | 2017-03-04 08:08 | RAD ---
Indication: ABC alert. Shortness of breath. Comparison: March 03, 2017 Technique: Upright AP 0700 hours Report: Endotracheal tube tip 2.5 cm above the Argelia. Nasogastric tube tip at level of the gastric body. RIGHT IJ central venous catheter tip at the level of the RIGHT atrium. Additional indeterminate catheter overlies the RIGHT upper lung zone and RIGHT margin of the mediastinum without change. Low lung volumes with RIGHT greater than LEFT atelectasis. Probable small pleural effusions. Cardiomegaly. Grossly unremarkable central pulmonary vasculature accounting for low lung volumes. Gas distention of the visualized upper abdominal bowel loops. Surgical clip at the level of the gallbladder fossa. IMPRESSION: Low lung volumes with RIGHT greater than LEFT atelectasis. Probable small effusions. Grossly unremarkable pulmonary vasculature.
[2017-03-04] MEDS ORDERED: Norepinephrine 16MCG/ML IVPRE* 4,000 MCG/250 ML BAG IV SCH (09:00)
--- NOTE | 2017-03-04 11:05 | PN ---
Progress Note - Progress Note Date of Service: 03/04/17 Note: Progress Note Critical Care 24 hour events/significant events: -noted aspiration event this morning, hypoxia, bradycardia/PEA arrest for 2 minutes, ROSC after epi. Hypotensive post but after 2 liters BP returned to normal now. -awake, semi-alert as previously documented on days. on precedex infusion -on AC mode ventilation, 80% fio2. sats 100% Tele: noted bradycardia, PEA, asystole briefly Vitals: Vital Signs Temp 102.6 F 03/04/17 07:50 Pulse 111 03/04/17 07:50 Resp 22 03/04/17 07:50 BP 74/30 03/04/17 07:50 Pulse Ox 98 03/04/17 07:50 Intake & Output 03/03/17 03/04/17 03/04/17 18:59 06:59 18:59 Intake Total 1397 829 Output Total 375 450 Balance 1022 379 Weight 191 lb 5.78 oz Intake: Tube Feeding 997 599 Tube Feeding Flush Amount 400 230 Output: Gongora 375 450 Other: Date of Last Bowel 03/03/17 Movement # Bowel Movements 1 1 Estimated Stool Amount Large Medium O2/Vent: AC 18/400/+5/80%, breathing over vent, sat 100% Infusions: precedex, NS bolus Medications: Acetaminophen (Tylenol Adult Liq*) 650 mg G TUBE Q6H PRN PRN Reason: FEVER/PAIN Albuterol (Ventolin 2.5 Mg/3 Ml Neb.Hanan*) 2.5 mg INH Q4H PRN PRN Reason: SOB/WHEEZING Carbamazepine (Tegretol Liq(*)) 600 mg PO 1900 [facility] Last Admin: 03/03/17 18:21 Dose: 600 mg Carbamazepine (Tegretol Liq(*)) 400 mg PO 0800,1300 [facility] [place] Last Admin: 03/04/17 07:57 Dose: Not Given Chlorhexidine Gluconate (Peridex Mouth Wash 0.12%*) 15 ml TOPICAL Q4H [facility] [place] Last Admin: 03/04/17 08:07 Dose: 15 ml Docusate Sodium (Colace Liq*) 200 mg PO BID [facility] [place] Last Admin: 03/04/17 08:06 Dose: Not Given Dexmedetomidine HCl 200 mcg/ (Sodium Chloride) 50 mls @ 6.51 mls/hr IVPB Q8H [facility] PRN Reason: 0.3 MCG/KG/HR Norepinephrine Bitartrate (Levophed 16 Mcg/Ml Premix Bag*) 4,000 mcg in 250 mls @ 37.5 mls/hr IV .INITIAL RATE [facility] PRN Reason: 10 MCG/MIN Piperacillin Sod/Tazobactam (Sod 3.375 gm/ Sodium Chloride) 100 mls @ 25 mls/ hr IVPB Q8H [facility] Lansoprazole (Prevacid Solutab*) 30 mg G TUBE DAILY [facility] Last Admin: 03/04/17 08:06 Dose: Not Given Lorazepam (Ativan Inj*) 0.5 mg IV PUSH Q4H PRN PRN Reason: ANXIETY Last Admin: 03/04/17 05:47 Dose: 0.5 mg Melatonin (Melatonin (Nf)) 3 mg PO BEDTIME PRN; Protocol PRN Reason: Sleep Last Admin: 02/22/17 00:16 Dose: 3 mg Ondansetron HCl (Zofran Inj*) 4 mg IV Q6H PRN PRN Reason: NAUSEA Pharmacy Consult (Zosyn Per Pharmacy*) 1 note FOLLOW UP .ZOSYN PER PHARMACY [facility] Physical Exam: General: intubated, awake, doesnt follow commands; not in distress Head: normocephalic, atraumatic HEENT: no pallor, no icterus, moist mucous membranes Neck: soft, supple, no jvd CVS: normal rate, normal rhythm, no murmur Resp: bilateral air entry, +rhales at right base, no wheeze, no rhonchi, no acc muscle use Abdomen: soft, nontender, +distended, bowel sounds diminished Ext: pulses+, warm, edema 1+/trace Skin: healed sacral pressure wound but mild fissuring noted, no discharge. Neuro: intubated, awake, doesnt follow commands. Labs: Laboratory Results - last 24 hr 03/03/17 03/03/17 13:30 13:30 WBC 7.7 RBC 3.49 L Hgb 11.5 L Hct 34 L MCV 97 H MCH 33 H MCHC 34 RDW 14 Plt Count 143 L MPV 7 L Neut % (Auto) 74.1 Lymph % (Auto) 14.3 L Addison % (Auto) 9.9 H Eos % (Auto) 1.3 Baso % (Auto) 0.4 Absolute Neuts (auto) 5.7 Absolute Lymphs (auto) 1.1 Absolute Monos (auto) 0.8 Absolute Eos (auto) 0.1 Absolute Basos (auto) 0 Absolute Nucleated RBC 0 Nucleated RBC % 0 Sodium 135 Potassium 3.5 Chloride 97 L Carbon Dioxide 32 Anion Gap 6 BUN 13 Creatinine 0.35 L Est GFR ( Amer) 337.6 Est GFR (Non-Af Amer) 262.5 BUN/Creatinine Ratio 37.1 H Glucose 124 H Calcium 8.5 L Imaging: cxr 02/28 - ett above [place]; no infiltrate/effusion noted. NGT in place ct neck 03/03 - reviewed; diffuclt study, cannot eval Clinical Research Scientist shunt cxr 03/04 am - ett above [place]; RLL consolidation+, with maybe RML/RUl involvement to less degree? ct head 03/03 - no acute change from prior ct neck 03/03 - reviewed - abrupt discontinuation of SKATING CARHOP shunt at level of occiput. Assessment: 51y M pmhx of MR, hydrocephalus s/p SKATING CARHOP shunts x4, seizure disorder; presented to [place] with apneic episode at facility and reoccurred in PACU of hospital. FOund to have RLL aspiration pneumonia and right pleural effusion. Thought to have tracheomalacia requiring PPV as well as aspiration pneumonia. Episodes of bradycardia, and even 1 alli-arrest, suspected to be from respiratory arrest/hypoxia induced. -s/P PEA arrest 03/04 (2nd in 2 weeks) from hypoxia -Acute Hypoxic Respiratory Failure, 2/2 to tracheomalacia -Aspiration pneumonia of RLL -Acute Hypercapneic Respiratory Failure, improved -Tracheomalacia -Right para-pneumonic pleural effusion, resolved s/p thoracentesis -Hypoxia induced bradycardia; s/p 1 alli-arrest 02/24 Hydrocephalus s/p SKATING CARHOP shunt Seizure disorder Plan: Neuro- s/p cardiac arrest briefly but awake now, seems similiar to prior days, awake/moving/doesnt follow commands. neuro notes reviewed. on precedex for resp distress. CT findings reviewed - shunt discontinued at occiput? will discuss with mother about all current medical issues and further SKATING CARHOP shunt eval and management if she thinks this would be best for patient. CT head without new hydrocephalus progression. cont carbamezapine. CVS- s/p cardiac arrest his AM, likely from acute hypoxia and aspiration. BP improved after stopping propofol and 2L NS bolus. no need for pressors now. warm and perfusing ext. Resp- intubated, fio2 80% on AC. ABG now. CXR with new consolidations Right base more. Pulm toilet. VAP bundle. Bronchodilators PRN. Started on zosyn for aspiration. ID- febrile. WBC normal. send blood culture. acute aspiration event. Zosyn IV ( day#1) GI-tube feeds off. seems to be ileus from CXR and dilated loops, but making stool. ngt to intermittent suction, asp prec, HOB >30. KUB today. Renal- making urine, pos balance. ngt free water held now. gongora in place. Monitor K/Mg and replete as needed. hematuria yesterday but less bloody now, more dark. Heme- hg stable. Plt count stable. Endo- FS as needed. feeds off Musculsk-pressure ulcer prophylaxis. Wounds- Wound care to posterior sacrum fissure. Nutrition-feeds off DVT prophylaxis: heparin sq off for hematuria. GI prophylaxis: PPI po Central Line: no Arterial Line: no Gongora Cathetor: yes Disposition: ICU for respiratory failure; another cardiac arrest event, from aspiration. need to discuss goals of care for him in setting of now fractured SKATING CARHOP ? Code Status: full code Total Critical Care time is 40 minutes, excluding procedures/teaching Sha Ocampo MD Classifier (Electronically Signed)
[2017-03-04 11:15] LABS: FIO2 75; Resp Rate 18; Ventilator Volume 400
[2017-03-04 11:18] LABS: PCO2 Arterial 38 mmHg (35-45)
[2017-03-04] MEDS ORDERED: NS 0.9% 500 ML BAG* 500 ML IV ONE (12:00)
[2017-03-04] MEDS ORDERED: Phenylephrine INJ* 50 MG in NS 0.9% 250 ML* 245 ML IV SCH (12:00)
--- NOTE | 2017-03-04 12:14 | RAD ---
Indication: Evaluate for obstruction Flat plate of the abdomen demonstrates presumed dilatation of the stomach and dilatation of small bowel. Small bowel obstruction is not excluded. No definitive colonic air is noted. IMPRESSION: Air distended stomach and small bowel for which small bowel obstruction cannot BE excluded.
[2017-03-04] MEDS: Dexmedetomidine* 200 MCG in NS 0.9% 50 ML* 48 ML IVPB SCH ×3 (12:35→21:55)
[2017-03-04] MEDS: ZOSYN 3.375 GM Q8H per EXTENDED INFUSION IVPB SCH ×4 (12:35→19:57)
[2017-03-05] MEDS: Chlorhexidine MOUTHWASH 0.12%* 15 ML UDC TOPICAL SCH ×6 (00:26→20:16)
[2017-03-05] MEDS: Dexmedetomidine* 200 MCG in NS 0.9% 50 ML* 48 ML IVPB SCH ×4 (02:02→20:15)
[2017-03-05] MEDS: ZOSYN 3.375 GM Q8H per EXTENDED INFUSION IVPB SCH ×6 (03:43→20:14)
[2017-03-05 06:33] LABS: Hematocrit 33 % (42-52); Hemoglobin 10.9 g/dl (14.0-18.0); Mean Corpuscular HGB Conc 34 g/dl (31-36); Mean Corpuscular Hemoglobin 33 pg (27-31); Mean Corpuscular Volume 97 fL (80-94); Mean Platelet Volume 7 um3 (7.4-10.4); Red Blood Count 3.34 10^6/ul (4.0-5.4); Red Cell Distribution Width 13 % (10.5-15); White Blood Count 9.8 10^3/ul (3.5-10.8)
[2017-03-05 06:49] LABS: BUN/Creatinine Ratio 47.5 (8-20); Calcium 8.1 mg/dL (8.6-10.3); EGFR African American 289.4 (>60); Potassium 3.5 mmol/L (3.5-5.0)
[2017-03-05] MEDS: carBAMazepine LIQ(*) 100 MG/5 ML UDC (10 ML) PO SCH ×3 (08:47→20:14)
[2017-03-05] MEDS: Lansoprazole SOLUTAB* 30 MG G TUBE SCH (08:48)
[2017-03-05] MEDS: Docusate LIQ* 100 MG/10 ML UDC PO SCH ×2 (08:48→20:05)
--- NOTE | 2017-03-05 09:04 | RAD ---
INDICATION: Aspiration pneumonia. COMPARISON: Comparison is made with a prior chest x-ray study from March 04, 2017. TECHNIQUE: A portable view of the chest was obtained. FINDINGS: Endotracheal and nasogastric tubes demonstrate normal course. There is a ventricular peritoneal shunt catheter present on the right side. There is a relatively dense left lung infiltrate present in the upper and lower lung field obscuring the majority of the left lung and a left pleural effusion which have increased from the prior exam. IMPRESSION: LEFT LUNG INFILTRATE AND PLEURAL EFFUSION INCREASED FROM THE PRIOR STUDY.
[2017-03-05] MEDS: KCL 20 MEQ/100 ML IVPREMIX* 20 MEQ/100 ML BAG IV SCH ×2 (09:37→12:23)
[2017-03-05 09:47] LABS: FIO2 70; Resp Rate 16; Ventilator Volume 400
--- NOTE | 2017-03-05 09:49 | PN ---
Progress Note - Progress Note Date of Service: 03/05/17 Note: Progress Note Critical Care 24 hour events/significant events: -overnight no significant events as per staff; less febrile overnight -off neosynephrine iv, BP improved, HR stable in 60-90s range -he is awake, still not following commands, restless at times. -remains intubated, on 60% fio2 -at length discussion with mother yesterday about current medical problems, labile respiratory status and airways with recurrent hypoxia and already 2-3 PEA cardiac arrests. Tele: NSR, tachycardia at times Vitals: Vital Signs Temp 99.0 F 03/05/17 09:00 Pulse 59 03/05/17 09:00 Resp 17 03/05/17 09:00 BP 125/53 03/05/17 09:00 Pulse Ox 95 03/05/17 09:00 Intake & Output 03/04/17 03/05/17 03/05/17 18:59 06:59 18:59 Intake Total 3208 406 Output Total 725 450 100 Balance 2483 -44 -100 Weight 193 lb 9.054 oz Intake: IV Fluids 3167 258 ABX 167 211 NS 3000 47 Medicated IV 41 148 Kg 8 Precedex 33 148 Oral 0 Tube Feeding 0 Output: NG Tube Drainage Amount 600 100 Gongora 125 450 Other: Date of Last Bowel 03/04/17 03/04/17 Movement # Bowel Movements 1 1 Estimated Stool Amount Large Large Small O2/Vent: AC 18/400/+5/60%, breathing over vent, sat 100% Infusions: precedex Medications: Acetaminophen (Tylenol Adult Liq*) 650 mg G TUBE Q6H PRN PRN Reason: FEVER/PAIN Albuterol (Ventolin 2.5 Mg/3 Ml Neb.Hanna*) 2.5 mg INH Q4H PRN PRN Reason: SOB/WHEEZING Carbamazepine (Tegretol Liq(*)) 600 mg PO 1900 [facility] Last Admin: 03/04/17 17:34 Dose: Not Given Carbamazepine (Tegretol Liq(*)) 400 mg PO 0800,1300 [facility] Last Admin: 03/05/17 08:47 Dose: Not Given Chlorhexidine Gluconate (Peridex Mouth Wash 0.12%*) 15 ml TOPICAL Q4H [facility] Last Admin: 03/05/17 09:37 Dose: 15 ml Docusate Sodium (Colace Liq*) 200 mg PO BID [facility] Last Admin: 03/05/17 08:48 Dose: Not Given Piperacillin Sod/Tazobactam (Sod 3.375 gm/ Sodium Chloride) 100 mls @ 25 mls/ hr IVPB Q8H [facility] Last Admin: 03/05/17 03:43 Dose: 25 mls/hr Phenylephrine HCl 50 mg/ (Sodium Chloride) 250 mls @ 30 mls/hr IV .(Initial Rate) [facility] PRN Reason: 100 MCG/MIN Last Admin: 03/04/17 13:43 Dose: 30 mls/hr Dexmedetomidine HCl 200 mcg/ (Sodium Chloride) 50 mls @ 6.51 mls/hr IVPB Q5H [facility] PRN Reason: 0.3 MCG/KG/HR Last Admin: 03/05/17 07:50 Dose: 10.8 mls/hr Potassium Chloride (Potassium Chloride 20 Meq/100 Ml Ivpremix*) 20 meq in 100 mls @ 50 mls/hr IV Q2H [facility] Stop: 03/05/17 12:59 Last Admin: 03/05/17 09:37 Dose: 50 mls/hr Lansoprazole (Prevacid Solutab*) 30 mg G TUBE DAILY [facility] Last Admin: 03/05/17 08:48 Dose: Not Given Lorazepam (Ativan Inj*) 0.5 mg IV PUSH Q4H PRN PRN Reason: ANXIETY Last Admin: 03/04/17 05:47 Dose: 0.5 mg Melatonin (Melatonin (Nf)) 3 mg PO BEDTIME PRN; Protocol PRN Reason: Sleep Last Admin: 02/22/17 00:16 Dose: 3 mg Ondansetron HCl (Zofran Inj*) 4 mg IV Q6H PRN PRN Reason: NAUSEA Pharmacy Consult (Zosyn Per Pharmacy*) 1 note FOLLOW UP .ZOSYN PER PHARMACY [facility] Physical Exam: General: intubated, awake, doesnt follow commands; not in distress Head: normocephalic, atraumatic HEENT: no pallor, no icterus, moist mucous membranes Neck: soft, supple, no jvd CVS: normal rate, normal rhythm, no murmur Resp: bilateral air entry, rhales improved, more rhonchi on left, no wheeze, no acc muscle use Abdomen: soft, nontender, appears less distended today, bowel sounds present but diminshed Ext: pulses+, warm, edema trace Skin: healed sacral pressure wound but mild fissuring noted, no discharge. Neuro: intubated, awake, doesnt follow commands. Labs: Laboratory Results - last 24 hr 03/04/17 03/05/17 03/05/17 11:09 06:00 06:00 WBC 9.8 RBC 3.34 L Hgb 10.9 L Hct 33 L MCV 97 H MCH 33 H MCHC 34 RDW 13 Plt Count 164 MPV 7 L Patient Temperature Not Reportable ABG pH 7.55 H ABG pCO2 38 ABG pO2 95 ABG HCO3 32.8 H ABG O2 Saturation 98.9 H ABG Base Excess 10.1 H Respiration Rate 18 Ventilator Type 400 Vent Mode cmv FiO2 75 Inspiratory Time Not Reportable PEEP 6 Pressure Support Not Reportable Pressure Control Not Reportable EPAP Not Reportable IPAP Not Reportable BiPAP Not Reportable Sodium 137 Potassium 3.5 Chloride 103 Carbon Dioxide 30 Anion Gap 4 BUN 19 Creatinine 0.40 L Est GFR ( Amer) 289.4 Est GFR (Non-Af Amer) 225.0 BUN/Creatinine Ratio 47.5 H Glucose 93 Calcium 8.1 L Imaging: cxr 02/28 - ett above [place]; no infiltrate/effusion noted. NGT in place ct neck 03/03 - reviewed; diffuclt study, cannot eval Validation Technician shunt cxr 03/04 am - ett above [place]; RLL consolidation+, with maybe RML/RUl involvement to less degree? ct head 03/03 - no acute change from prior ct neck 03/03 - reviewed - abrupt discontinuation of INFORMATION TECHNOLOGY SECURITY ANALYST shunt at level of occiput. cxr 03/05 - ett above [place]; right lower lobe better aerated now; left sided diffuse white out Assessment: 51y M pmhx of MR, hydrocephalus s/p INFORMATION TECHNOLOGY SECURITY ANALYST shunts x4, seizure disorder; presented to [place] with apneic episode at facility and reoccurred in PACU of hospital. FOund to have RLL aspiration pneumonia and right pleural effusion. Thought to have tracheomalacia requiring PPV as well as aspiration pneumonia. Episodes of bradycardia, and even 1 alli-arrest, suspected to be from respiratory arrest/hypoxia induced. -s/P PEA arrest 03/04 (2nd in 2 weeks) from hypoxia -Acute Hypoxic Respiratory Failure, 2/ to tracheomalacia -Aspiration pneumonia of RLL -Acute Hypercapneic Respiratory Failure, improved -Tracheomalacia -Right para-pneumonic pleural effusion, resolved s/p thoracentesis -Hypoxia induced bradycardia; s/p 1 alli-arrest 02/24 Hydrocephalus s/p INFORMATION TECHNOLOGY SECURITY ANALYST shunt Seizure disorder Plan: Neuro- awake, not following commands, appears to be at baseline before the arrest yesterday. on precedex for anxiety, will attempt to wean off again. CT findings reviewed - shunt discontinued at occiput; discussed with mother, no evidence of hydro on CT brain, so will decide on respiratory and code status before further pursuing the INFORMATION TECHNOLOGY SECURITY ANALYST shunt issue. I feel there is no hydro and hence no obstruction to shunt, there may still be drainage ongoing. Will consider if neurosurgery needs to be involved if no intervention will be needed by family. cont carbamezapine if able to. CVS- off kg, MAPs>70. no ivf now. monitoring. warm and perfusing ext. Resp- intubated, fio2 60% on AC. ABG now. CXR with improved right consolidation , but left white out+. Pulm toilet and lavage. will consider a bedside bronch wtih lavage but I'm hesitant knowing he is so labile and any anxiety or stress he collapses and becomes hypoxic rapidly. attempt consservative measures only for now. hemodyn stable. VAP bundle. Bronchodilators PRN. Zosyn for aspiration. ID- afebrile. WBC normal. blood cultures difficult stick, poor access, need a picc line tuesday changed. Zosyn IV (day#2) for aspiration pneumonia. GI- tube feeds off. abdomen less distended, but still has loose stool. send c.diff. cont ngt to intermittent low suction. KUB tomorrow. PO meds if no sig output from ngt. Aspiration prec, HOB >30. Renal- making urine, pos balance. gongora in place. Monitor K/Mg and replete as needed. hematuria improved.. Heme- hg stable. Plt count stable. Endo- FS as needed. feeds off Musculsk-pressure ulcer prophylaxis. Wounds- Wound care to posterior sacrum fissure. Nutrition-feeds off DVT prophylaxis: heparin sq off for hematuria. GI prophylaxis: PPI po Central Line: no Arterial Line: no Gongora Cathetor: yes Disposition: ICU for respiratory failure; another cardiac arrest event, from aspiration at length discussion with mother yesterday about respiratory status, need for mechanical ventilation. labile status where he desaturates and develops PEA arrest. He would need trach but noting his quality of life would further be affected. We discussed trach versus extubation but with a DNR so recurrent coding would not occur given his resp status. We would hold on further pursuing the INFORMATION TECHNOLOGY SECURITY ANALYST shunt at this time due to no hydrocephalus. I felt that was not a major issue at this time. She also would not want to put him through another surgery. At the end of meeting, we decided we would meet tuesday or tuesday with whole team, other cycle counter as well as people from the assisted living facility for a plan and discussion about his goals of care. Code Status: full code Total Critical Care time is 40 minutes, excluding procedures/teaching Sha Ocampo MD Counter Waitress/Waiter (Electronically Signed)
[2017-03-05 09:53] LABS: PCO2 Arterial 44 mmHg (35-45)
[2017-03-05] MEDS: D5W 1/2 NS 1000 ML BAG* 1,000 ML IV SCH (10:28)
[2017-03-05] MEDS: Acetylcysteine INHALATION SOL* 200 MG/ML NEB.SOLN 10 ML INH PRN ×2 (15:47→21:27)
[2017-03-05] MEDS: Albuterol 2.5 MG/3 ML NEB.SOL* (0.083%) INH PRN ×2 (15:47→21:27)
[2017-03-05] MEDS: LORazepam INJ* 2 MG/ML 1 ML VIAL IV PUSH PRN (19:58)
[2017-03-06] MEDS: Dexmedetomidine* 200 MCG in NS 0.9% 50 ML* 48 ML IVPB SCH ×3 (01:42→09:38)
[2017-03-06] MEDS: Chlorhexidine MOUTHWASH 0.12%* 15 ML UDC TOPICAL SCH ×6 (01:42→20:01)
[2017-03-06] MEDS: ZOSYN 3.375 GM Q8H per EXTENDED INFUSION IVPB SCH ×6 (04:53→20:01)
[2017-03-06 06:30] LABS: Hematocrit 30 % (42-52); Hemoglobin 10.2 g/dl (14.0-18.0); Mean Corpuscular HGB Conc 34 g/dl (31-36); Mean Corpuscular Hemoglobin 33 pg (27-31); Mean Corpuscular Volume 97 fL (80-94); Mean Platelet Volume 7 um3 (7.4-10.4); Red Blood Count 3.11 10^6/ul (4.0-5.4); Red Cell Distribution Width 14 % (10.5-15); White Blood Count 8.8 10^3/ul (3.5-10.8)
[2017-03-06 06:45] LABS: Blood Urea Nitrogen 18 mg/dL (6-24); CO2 Carbon Dioxide 32 mmol/L (22-32); Calcium 8.1 mg/dL (8.6-10.3); Chloride 105 mmol/L (101-111); EGFR African American 326.8 (>60); EGFR Non-African American 254.1 (>60); Glucose 124 mg/dL (70-100); Potassium 3.9 mmol/L (3.5-5.0); Sodium 136 mmol/L (133-145)
[2017-03-06] MEDS: Docusate LIQ* 100 MG/10 ML UDC PO SCH ×3 (07:20→21:10)
--- NOTE | 2017-03-06 08:06 | RAD ---
INDICATION: Collapsed left lung. COMPARISON: Comparison is made with prior study from March 05, 2017. TECHNIQUE: A portable view of the chest was obtained. FINDINGS: Note is made of an endotracheal tube which projects over the midline. There is a nasogastric tube present. The catheter tip projects in the left upper quadrant. The heart is within normal limits for this portable exam. There has been reexpansion of the left lung consistent with interval resolution of left lung collapse. There is diffuse prominence of the interstitial markings and small bilateral pleural effusions most consistent with congestive heart failure. IMPRESSION: 1. REEXPANSION OF THE LEFT LUNG. 2. FINDINGS MOST CONSISTENT WITH CONGESTIVE HEART FAILURE, UNCHANGED.
[2017-03-06] MEDS ORDERED: Bisacodyl SUPP* 10 MG SUPP PR ONE (08:14)
--- NOTE | 2017-03-06 08:16 | RAD ---
INDICATION: Paralytic ileus. COMPARISON: Comparison is made with a prior KUB series from March 04, 2017. TECHNIQUE: Frontal supine films of the abdomen were obtained. FINDINGS: The distal portion of a ventricular peritoneal shunt catheter is noted in the right lower quadrant. There is mild to moderate distention of the stomach, small and large bowel most consistent with a paralytic ileus less likely a partial small bowel obstruction.. This is unchanged significantly from the prior study. There is a round large coarse calcification in the right upper quadrant measuring 3 cm in size. This correlates with a hepatic calcification on a prior CT of the abdomen and pelvis from March 06, 2011. IMPRESSION: FINDINGS MOST CONSISTENT WITH A PARALYTIC ILEUS LESS LIKELY A PARTIAL SMALL BOWEL OBSTRUCTION, UNCHANGED FROM THE PRIOR STUDY.
--- NOTE | 2017-03-06 09:18 | PN ---
Progress Note - Progress Note Date of Service: 03/06/17 Note: Progress Note Critical Care 24 hour events/significant events: -remains on vent; weaning down fio2 now -awake, remains on precedex, started on risperidal, weaning down -abd still distended but soft; bowel movements+ -afebrile. no vomitting, still some bilious outputs from NGT Tele: NSR; occassional sinus alli with short pause now, less than yesterday Vitals: Vital Signs Temp 99.6 F 03/06/17 08:00 Pulse 62 03/06/17 08:00 Resp 18 03/06/17 08:00 BP 115/50 03/06/17 08:00 Pulse Ox 100 03/06/17 08:00 Intake & Output 03/05/17 03/06/17 03/06/17 18:59 06:59 18:59 Intake Total 583 1296 Output Total 350 1000 Balance 233 296 Weight 196 lb 10.437 oz Intake: IV Fluids 438 824 ABX 147 D5 1/2NS 153 677 NS 285 IVPB 144 ABX 89 D5 1/2NS 55 Medicated IV 85 128 CC - Propofol/Diprivan 85 Precedex 128 Tube Feeding Flush Amount 60 NG Tube Irrigate Amount 200 Output: NG Tube Drainage Amount 100 400 Gongora 150 300 Liquid Stool 100 300 Other: Estimated Stool Amount Small O2/Vent: AC 18/400/+5/60%, breathing over vent, sat 100% Infusions: precedex Medications: Acetaminophen (Tylenol Adult Liq*) 650 mg G TUBE Q6H PRN PRN Reason: FEVER/PAIN Acetylcysteine (Mucomyst Inhalation Hanna*) 400 mg INH Q6H PRN PRN Reason: CONGESTION Last Admin: 03/05/17 21:27 Dose: 400 mg Albuterol (Ventolin 2.5 Mg/3 Ml Neb.Hanna*) 2.5 mg INH Q2H PRN PRN Reason: SOB/WHEEZING Last Admin: 03/05/17 21:27 Dose: 2.5 mg Carbamazepine (Tegretol Liq(*)) 600 mg PO 1900 JAE Last Admin: 03/05/17 20:14 Dose: 600 mg Carbamazepine (Tegretol Liq(*)) 400 mg PO 0800,1300 JAE Last Admin: 03/05/17 13:01 Dose: Not Given Chlorhexidine Gluconate (Peridex Mouth Wash 0.12%*) 15 ml TOPICAL Q4H [facility] Last Admin: 03/06/17 04:53 Dose: 15 ml Docusate Sodium (Colace Liq*) 200 mg PO BID [facility] Last Admin: 03/06/17 07:20 Dose: Not Given Piperacillin Sod/Tazobactam (Sod 3.375 gm/ Sodium Chloride) 100 mls @ 25 mls/ hr IVPB Q8H [facility] Last Admin: 03/06/17 04:53 Dose: 25 mls/hr Dexmedetomidine HCl 200 mcg/ (Sodium Chloride) 50 mls @ 6.51 mls/hr IVPB Q5H [facility] PRN Reason: 0.3 MCG/KG/HR Last Admin: 03/06/17 01:42 Dose: 8.6 mls/hr Dextrose/Sodium Chloride (D5w 1/2 Ns 1000 Ml Bag*) 1,000 mls @ 50 mls/hr IV PER RATE [facility] Last Admin: 03/05/17 10:28 Dose: 50 mls/hr Lansoprazole (Prevacid Solutab*) 30 mg G TUBE DAILY [facility] Last Admin: 03/05/17 08:48 Dose: Not Given Lorazepam (Ativan Inj*) 0.5 mg IV PUSH Q4H PRN PRN Reason: ANXIETY Last Admin: 03/05/17 19:58 Dose: 0.5 mg Melatonin (Melatonin (Nf)) 3 mg PO BEDTIME PRN; Protocol PRN Reason: Sleep Last Admin: 02/22/17 00:16 Dose: 3 mg Ondansetron HCl (Zofran Inj*) 4 mg IV Q6H PRN PRN Reason: NAUSEA Pharmacy Consult (Zosyn Per Pharmacy*) 1 note FOLLOW UP .ZOSYN PER PHARMACY [facility] Risperidone (Risperdal) 0.5 mg PO BID [facility] Last Admin: 03/05/17 20:16 Dose: 0.5 mg Physical Exam: General: intubated, awake, doesnt follow commands; not in distress Head: normocephalic, atraumatic HEENT: no pallor, no icterus, moist mucous membranes Neck: soft, supple, no jvd CVS: normal rate, normal rhythm, no murmur Resp: bilateral air entry, rhales improved, minimal rhonchi on left, no wheeze, no acc muscle use Abdomen: soft, nontender, distended but nor firm/tense, bowel sounds present but diminshed Ext: pulses+, warm, edema trace Skin: healed sacral pressure wound but mild fissuring noted, no discharge. Neuro: intubated, awake, doesnt follow commands. Labs: Laboratory Results - last 24 hr 03/05/17 03/06/17 03/06/17 09:40 05:57 05:57 WBC 8.8 RBC 3.11 L Hgb 10.2 L Hct 30 L MCV 97 H MCH 33 H MCHC 34 RDW 14 Plt Count 173 MPV 7 L Patient Temperature Not Reportable ABG pH 7.49 H ABG pCO2 44 ABG pO2 65 L ABG HCO3 32.0 H ABG O2 Saturation 96.6 ABG Base Excess 9.2 H Respiration Rate 16 O2 Delivery Device vent Ventilator Type 400 Vent Mode cmv FiO2 70 Inspiratory Time Not Reportable PEEP 6 Pressure Support Not Reportable Pressure Control Not Reportable EPAP Not Reportable IPAP Not Reportable BiPAP Not Reportable Sodium 136 Potassium 3.9 Chloride 105 Carbon Dioxide 32 BUN 18 Creatinine 0.36 L Est GFR ( Amer) 326.8 Est GFR (Non-Af Amer) 254.1 BUN/Creatinine Ratio 50.0 H Glucose 124 H Calcium 8.1 L Imaging: cxr 02/28 - ett above [place]; no infiltrate/effusion noted. NGT in place ct neck 03/03 - reviewed; diffuclt study, cannot eval Material Handler 2Nd Shift shunt cxr 03/04 am - ett above [place]; RLL consolidation+, with maybe RML/RUl involvement to less degree? ct head 03/03 - no acute change from prior ct neck 03/03 - reviewed - abrupt discontinuation of MORTGAGE LOAN COORDINATOR shunt at level of occiput. cxr 03/05 - ett above [place]; right lower lobe better aerated now; left sided diffuse white out cxr 03/06 - improved left sided mucous plugging, improved aeration kub 03/06 - diffuse ileus+ with left colon full of feaces Assessment: 51y M pmhx of MR, hydrocephalus s/p MORTGAGE LOAN COORDINATOR shunts x4, seizure disorder; presented to [place] with apneic episode at facility and reoccurred in PACU of hospital. FOund to have RLL aspiration pneumonia and right pleural effusion. Thought to have tracheomalacia requiring PPV as well as aspiration pneumonia. Episodes of bradycardia, and even 1 alli-arrest, suspected to be from respiratory arrest/hypoxia induced. -s/P PEA arrest 03/04 (2nd in 2 weeks) from hypoxia -Acute Hypoxic Respiratory Failure, 2/2 to tracheomalacia -Aspiration pneumonia of RLL -Acute Hypercapneic Respiratory Failure, improved -Tracheomalacia -Right para-pneumonic pleural effusion, resolved s/p thoracentesis -Hypoxia induced bradycardia; s/p 1 alli-arrest 02/24 -ileus of small bowel Hydrocephalus s/p MORTGAGE LOAN COORDINATOR shunt Seizure disorder Plan: Neuro- awake, not following commands, appears to be at baseline before the arrest yesterday. on precedex for anxiety, started risperidal, will attempt to get precedex off. avoiding bradycardia which is occuring. cont carbamezapine. CT findings reviewed - shunt discontinued at occiput; discussed with mother, no evidence of hydro on CT brain, so will decide on respiratory and code status before further pursuing the MORTGAGE LOAN COORDINATOR shunt issue. I feel there is no hydro and hence no obstruction to shunt, there may still be drainage ongoing. Will consider if neurosurgery needs to be involved if no intervention will be needed by family. CVS- off aleja, MAPs>70. d5 1/2 ns 50cc/hour while NPO. warm ext. less alli, some sinus arrhythmia, will get precedex off. Resp- intubated, fio2 70% this morning, decreased to 60%, peep to 5 now. CXR improved left mucous plugging, aerated now, consolidation improved. Pulm toilet and lavage. Hemodyn stable. VAP bundle. Bronchodilators PRN. Zosyn for aspiration. ID- afebrile. WBC normal. blood culture neg x1 day. Zosyn IV (day#3) for aspiration pneumonia, will give 5 days total. GI- tube feeds off due to ileus and vomitting. KUB still diffuse ileus. dulcolax MT x1 now, will try fleet enema next. NGT in place intermittent suction as needed. no further vomitting. send c.diff today. Aspiration prec, HOB >30. Renal- making urine, pos balance. d5 1/2 ns infusion ongoing for now. minimal/ no edema, monitor, may need intermittent lasix. gongora in place. Monitor K/Mg and replete as needed. hematuria improved.. Heme- hg stable. Plt count stable. Endo- FS as needed. feeds off Musculsk-pressure ulcer prophylaxis. Wounds- Wound care to posterior sacrum fissure. Nutrition-feeds off for now, ileus+ DVT prophylaxis: heparin sq off for hematuria, reconsider tomorrow to restart GI prophylaxis: PPI po Central Line: no Arterial Line: no Gongora Cathetor: yes Disposition: ICU for respiratory failure; another cardiac arrest event, from aspiration at length discussion with mother 03/04 about respiratory status, need for mechanical ventilation. labile status where he desaturates and develops PEA arrest. He would need trach but noting his quality of life would further be affected. We discussed trach versus extubation but with a DNR so recurrent coding would not occur given his resp status. We would hold on further pursuing the MORTGAGE LOAN COORDINATOR shunt at this time due to no hydrocephalus. I felt that was not a major issue at this time. She also would not want to put him through another surgery. At the end of meeting, we decided we would meet tuesday or tuesday with whole team, other deckhand fishing vessel as well as people from the assisted living facility for a plan and discussion about his goals of care. Code Status: full code Total Critical Care time is 35 minutes, excluding procedures/teaching Sha Ocampo MD [place] (Electronically Signed)
[2017-03-06] MEDS: Lansoprazole SOLUTAB* 30 MG G TUBE SCH (09:37)
[2017-03-06] MEDS: carBAMazepine LIQ(*) 100 MG/5 ML UDC (10 ML) PO SCH ×3 (09:37→19:21)
[2017-03-06] MEDS: D5W 1/2 NS 1000 ML BAG* 1,000 ML IV SCH (10:08)
[2017-03-06] MEDS: Albuterol 2.5 MG/3 ML NEB.SOL* (0.083%) INH PRN ×2 (11:12→19:11)
[2017-03-06] MEDS: Acetylcysteine INHALATION SOL* 200 MG/ML NEB.SOLN 10 ML INH PRN ×2 (11:13→19:11)
[2017-03-06] MEDS ORDERED: Furosemide IV* 10 MG/ML 2 ML VIAL (20 MG) IV SLOW PU ONE (11:54)
[2017-03-06] MEDS ORDERED: KCL 20 MEQ/100 ML IVPREMIX* 20 MEQ/100 ML BAG IV ONE (11:54)
[2017-03-06] MEDS ORDERED: Furosemide IV* 10 MG/ML 2 ML VIAL (20 MG) ONE (11:56)
[2017-03-06] MEDS ORDERED: KCL 20 MEQ/100 ML IVPREMIX* 20 MEQ/100 ML BAG ONE (11:57)
[2017-03-06] MEDS: LORazepam INJ* 2 MG/ML 1 ML VIAL IV PUSH PRN (17:45)
[2017-03-07] MEDS: Chlorhexidine MOUTHWASH 0.12%* 15 ML UDC TOPICAL SCH ×7 (00:48→23:56)
[2017-03-07] MEDS: ZOSYN 3.375 GM Q8H per EXTENDED INFUSION IVPB SCH ×6 (04:08→20:33)
[2017-03-07 05:52] LABS: Hematocrit 27 % (42-52); Hemoglobin 9.5 g/dl (14.0-18.0); Mean Corpuscular HGB Conc 35 g/dl (31-36); Mean Corpuscular Hemoglobin 34 pg (27-31); Mean Corpuscular Volume 98 fL (80-94); Mean Platelet Volume 8 um3 (7.4-10.4); Red Blood Count 2.77 10^6/ul (4.0-5.4); Red Cell Distribution Width 14 % (10.5-15); White Blood Count 9.1 10^3/ul (3.5-10.8)
[2017-03-07 06:14] LABS: BUN/Creatinine Ratio 48.6 (8-20); Blood Urea Nitrogen 17 mg/dL (6-24); CO2 Carbon Dioxide 31 mmol/L (22-32); Calcium 7.8 mg/dL (8.6-10.3); Chloride 104 mmol/L (101-111); EGFR African American 337.6 (>60); EGFR Non-African American 262.5 (>60); Glucose 97 mg/dL (70-100); Sodium 134 mmol/L (133-145)
[2017-03-07] MEDS: Docusate LIQ* 100 MG/10 ML UDC PO SCH ×2 (08:28→20:33)
[2017-03-07] MEDS: carBAMazepine LIQ(*) 100 MG/5 ML UDC (10 ML) PO SCH ×3 (08:28→19:42)
[2017-03-07] MEDS: Lansoprazole SOLUTAB* 30 MG G TUBE SCH (08:28)
--- NOTE | 2017-03-07 14:03 | CONS ---
CC: Andrea Zaman MD * PALLIATIVE CARE CONSULTATION: DATE OF CONSULT: 03/07/17 PRIMARY CARE PHYSICIAN: Andrea Zaman MD. REFERRING PHYSICIAN: Brandt Lin MD. HOSPITAL COURSE: This is a 51-year-old male with a past medical history of profound intellectual developmental disability as well as a seizure disorder and hydrocephalus status post LITHOPONE MILL WORKER shunt with several revisions, who presented to the emergency room initially on the for not breathing for "5 minutes." Patient is from [facility] and was brought in by the staff there. Of note, patient was just discharged from [facility] that morning of his admission for treatment of pneumonia. On admission, patient was noted to have this persistent pneumonia with parapneumonic effusion, was started on broad- spectrum antibiotics and IV fluids. The concern was whether this was an apneic event or a seizure event or if it was related to his pleural effusion or not initially. Patient was planning to go have a thoracentesis done. Prior to his procedure, he was noted to be apneic and minimally responsive. Neurology was consulted as well as the central supply supervisor. He was found to be in hypercapnic hypoxic respiratory failure and was brought to the ICU and further intubated. His head CT and his EEG did not show any significant findings. There was a question of seizure disorder contributing to his respiratory failure. He also was found to have a tracheobronchomalacia and chronic aspiration. Patient was weaned off the ventilator and extubated on the morning of the on the day he was extubated. He braided down into the 20s. He was given atropine and he was bagged. Patient had thick secretions expelled and he was reintubated at that time. Dr. Ocampo then took over services in the intensive care and evaluated for shunt study with head and neck CT, gallbladder ultrasound as well , as the family was concerned that a stone was contributing to his ailments. Patient also, of note, on the morning of the had another aspiration event leading to hypoxia, bradycardia and PEA arrest for 2 minutes. He had return of spontaneous circulation after epi but remained hypotensive and required fluid boluses. His head CT showed no new hydrocephalus progression. This morning during ICU rounds, the concern is that patient will never be successfully weaned off mechanical ventilation and will require a positive pressure ventilation due to his severe tracheobronchomalacia and now with his chronic aspiration and significant mucus plugging, according to the nursing staff, he still needed to be bagged while ventilated because of the mucus plug and causing bradycardia and hypoxia. At this time, palliative care consult was initiated to help with goals of care. I did speak with the mother Nikki and the step-father over a speaker phone to discuss my role and my purpose. They are concerned about the LITHOPONE MILL WORKER shunt draining into the lungs contributing to his lung problems. I stated that I would speak with Dr. Lin to follow up with this; however, it would not change the fact of his tracheobronchomalacia and his chronic aspiration and the need to be on a ventilator. They were conflicted as the last central supply supervisor talked about weaning from the vent to see how he does. My concern is that, if he does not do well, which I suspect is the case considering his history of mucus plugging and his tracheobronchomalacia and his 2 apneic bradycardic events with cardiac arrest that he would not survive if he was extubated and if they would want him to be reintubated and be put on a ventilator. I spoke my concerns regarding a ventilator with his hand positioning being right at the neck where his trach would be in place and that there would be concern he would need to be restrained to allow the trach to heal and also to allow the trach to stay in place. My other concern is that even if he were on mechanical ventilation with the trach that with his recurrent mucus plugging and needing to be bagged frequently that he would not survive despite being on a ventilatory ocean transportation intermediary. The mother and step-father were requested a family meeting with myself and the central supply supervisor and the [facility], which we are going to set up and arrange for tomorrow the . Otherwise, unable to obtain review of systems while patient is at the bedside, he does open his eyes to voice but patient is intubated and nonverbal. PAST MEDICAL HISTORY: 1. History of profound intellectual developmental disability, dependent on all ADLs. 2. History of hydrocephalus, status post LITHOPONE MILL WORKER shunt with revision x4. 3. History of seizure disorder. 4. This hospital course is complicated by 2 PEA arrests, one on the and one on the from hypoxia and mucus plugging. 5. Acute hypoxic respiratory failure secondary to tracheobronchomalacia. 6. Aspiration pneumonia. 7. Acute hypercapnic respiratory failure. He has right parapneumonic pleural effusion. 8. Ileus of small bowel. INPATIENT MEDICATIONS: 1. Tylenol 650 mg every 6 hours as needed. 2. Acetylcysteine inhaled 400 mg every 6 hours as needed. 3. Albuterol 2.5 mg every 2 hours as needed. 4. Chlorhexidine mouthwash every 4 hours. 5. Colace 200 mg p.o. twice a day. 6. Lorazepam 0.5 mg q. 4 hours as needed for agitation. 7. Lansoprazole 30 mg G-tube daily. 8. Melatonin 3 mg at bedtime as needed for sleep. 9. Zofran 4 mg every 6 hours as needed. 10. Zosyn 3.375 g every 8 hours. 11. Risperdal 0.5 p.o. b.i.d. as needed. 12. Carbamazepine 600 mg daily and 400 mg b.i.d. ALLERGIES: LEVOFLOXACIN. FAMILY HISTORY: Unable to obtain. SOCIAL HISTORY: Patient resides at [facility], is dependent of all his ADLs. He is nonverbal. He does awake to voice and per the mom, he does make eye contact and knows when she is in the room. His mother has mentioned his active legal guardian is Nikki Abdi, phone number [phone]. No history of smoking, alcohol, or illicit drug use. REVIEW OF SYSTEMS: Unable to obtain due to patient's altered mental status. PHYSICAL EXAM: Vital Signs: Temp 98, pulse rate 74, respiratory rate 18, oxygen saturation 98% on mechanical ventilation. Blood pressure 168/70. General: As mentioned, patient does awake to my voice, opens his eyes, not making eye contact or tracking. Pupils are dilated and reactive. Head is microcephalic. Oropharynx: Intubated with ET tube and OG tube. Cardiac: Regular rate and rhythm. No murmurs, rubs, or gallops. Respiratory: Bilateral rhonchi with diminished breath sounds, no tachypnea or increased work of breathing. Abdomen: Soft, nontender. There is some mild distension, positive bowel sounds. Extremities: +1 pretibial edema. Extremities are warm , +1 DPs. Neurologic: Patient is intubated, not sedated, does not follow commands, is not tracking or making eye contact. His upper extremities are contracted and atrophy as well as lower extremities. DIAGNOSTIC STUDIES/LAB DATA: White count 9, hemoglobin 9.5, hematocrit 27, platelets 202. Sodium 134, chloride 104, bicarb 31, BUN 17, creatinine 0.35. Radiographic data most recent on 03/06, reexpansion of the left lung, findings most consistent with congestive heart failure, unchanged. Abdominal x-ray, findings most consistent with paralytic ileus, less likely a partial small bowel obstruction, unchanged from the prior CT. ASSESSMENT: This is a 51-year-old male with past medical history of profound developmental disability with the seizure disorder and LITHOPONE MILL WORKER shunt, who presented to the emergency room initially with an apneic episode and found to be what was thought to be seizure activity as well as respiratory failure, hypercapnic and hypoxic. As mentioned, patient was found to have significant tracheobronchomalacia with subsequent mucus plugging resulting in two episodes of PEA arrest with hypoxia and bradycardia as well with recurrent hypoxia and bradycardia resulting in intermittent bagging while on the ventilator due to the mucus plugging. The concern and my request for consultation is goals of care. I did speak with the mother and the step-father at length on the phone and we are planning to meet with the central supply supervisor and the [facility] staff to have a full family discussion to discuss goals of care. My concern is that patient is requiring a lot of aggressive invasive measures while on ventilation and that, even if the family chooses for him to have a trach, he would not survive the trach with mechanical ventilation. The other concern is that he would not be able to return to his home at the [facility] and have to go to a trach facility. Another concern as well is that he has his hands mostly placed around the neck where the trach would be placed and there would be concern for dislodging it, secondary infection, and possibly having him restrained for an indefinite period of time. The family does feel conflicted at this time, understandably, so as that there was a discussion about extubating him as he was doing reasonably well and see how he does. My concern is that this prolonged ICU course has shown that he will not survive without mechanical ventilation and I would make a recommendation to extubating and allowing for comfort measures, withholding life sustaining treatment including pressors and allow for comfort feeds and withholding artificial nutrition. Patient has a terminal diagnosis with a poor prognosis of his respiratory failure with chronic aspiration and tracheobronchomalacia. I will follow up with Dr. Lin and the [facility] to help coordinate this family meeting. I thank you for this consultation. I will follow along with you. PATIENT TIME: Greater than 100 minutes spent doing the consultation, more than half the time spent in direct patient contact. [id number]/CPS #: [id number] BRETT
--- NOTE | 2017-03-07 15:07 | PN ---
Critical Care Services: Patient had another asystolic cardiac arrest this AM - promptly responded to epinephrine. This is apparently the 4th cardiac arrest the patient has experienced during this hospitalization. Major problem is respiratory failure due to tracheomalacia and recurrent aspiration. Vital Signs: Temp Pulse Resp BP SpO2 FiO2 98.3 F 96 19 113/55 92 40 Physical Exam: Gen: Is awake, but is not responsive to verbal commands. HEENT: Pupils reactive. Lungs: Scattered rhonchi Cardiac: Regular rhythm. Extremities:No cyanosis Fluid Balance (Past 24 Hours): I= O= Net Intake & Output 03/07/17 06:59 Intake Total 1188 Output Total 725 Balance 463 Weight 194 lb Intake: IV Fluids 807 ABX 201 D5 1/2NS 380 NS 226 IVPB 98 ABX D5 1/2NS 98 Medicated IV 43 CC - Propofol/Diprivan Kg Precedex 43 Oral Tube Feeding Tube Feeding Flush Amount 240 NG Tube Irrigate Amount Output: NG Tube Drainage Amount 75 Mccartney 650 Estimated Stool Amount Medium Labs: 03/07/17 03/07/17 05:40 05:40 WBC 9.1 Hgb 9.5 L Hct 27 L MCV 98 H Plt Count 202 Sodium 134 Potassium TNP Chloride 104 Carbon Dioxide 31 BUN 17 Creatinine 0.35 L Glucose 97 Calcium 7.8 L Studies: None Nutrition: Tube feedings Impression: Chronic ventilator dependence wiith recurrent asystolic cardiac arrests. Prognosis poor for regaining indepence off the ventilator. Plan: There is a meeting with patient's mother tomorrow about end-of-life decisions. In meantime, will continue present level of care. Critical Care Time: 60 minutes, including time spent with CPR.
[2017-03-07] MEDS: Morphine INJ* 2 MG/ML 1 ML SYRINGE IV PRN (19:37)
[2017-03-07] MEDS: LORazepam INJ* 2 MG/ML 1 ML VIAL IV PUSH PRN (19:53)
[2017-03-08] MEDS: Morphine INJ* 2 MG/ML 1 ML SYRINGE IV PRN ×3 (03:37→11:26)
[2017-03-08] MEDS: Chlorhexidine MOUTHWASH 0.12%* 15 ML UDC TOPICAL SCH ×5 (03:37→21:26)
[2017-03-08] MEDS: ZOSYN 3.375 GM Q8H per EXTENDED INFUSION IVPB SCH ×6 (03:37→21:10)
[2017-03-08] MEDS: carBAMazepine LIQ(*) 100 MG/5 ML UDC (10 ML) PO SCH ×3 (08:34→21:25)
[2017-03-08] MEDS: Docusate LIQ* 100 MG/10 ML UDC PO SCH ×2 (08:34→21:26)
[2017-03-08] MEDS: Lansoprazole SOLUTAB* 30 MG G TUBE SCH (08:34)
--- NOTE | 2017-03-08 16:54 | PN ---
Critical Care Services: Patient suffered another asystolic cardiac arrest last night, and was successfully resuscitated. We had a meeting with patients family (mother, step- father) and [facility] designates about DNR order, and all are in agreement to institute a DNR order. Because patient has an irreversible cause of respiratory failure, and will be ventilator-dependent for the remainder of his life, the suggested course of action is to remove the endotracheal tube and keep the patient comfortable. Parents are in agreement with this course of action. Vital Signs: Temp Pulse Resp BP SpO2 FiO2 99.8 F 70 18 189/70 94 60 Physical Exam: Gen:Awake but not aware Lungs:Scattered rhonchi. No crackles. Extremities:No cyanosis or edema. Fluid Balance (Past 24 Hours): 03/08/17 06:59 Intake Total 469 Output Total 960 Balance -491 Weight 196 lb Intake: IV Fluids 249 ABX 190 D5 1/2NS NS 59 IVPB 220 ABX 220 D5 1/2NS NS Medicated IV CC - Propofol/Diprivan Precedex Tube Feeding Flush Amount NG Tube Irrigate Amount Output: NG Tube Drainage Amount 400 Mccartney 560 Liquid Stool Other: Estimated Void Small Estimated Stool Amount Large Labs: None today Studies: None today Nutrition: Tube feedings Impression: Patient has 2 major problems: 1) tracheomalacia, and 2)Recurrent asystolic cardiac arrests. Both carry a very poor prognosis. Plan: As mentioned, begin with DNR order, than proceed (when legally allowed) to removal of endotracheal tube.
--- NOTE | 2017-03-08 16:55 | PN ---
Progress Note - Progress Note Date of Service: 03/08/17 Note: Family meeting today with Mother, Step father, [facility] Staff, Dr. Lin, social work, LS on speaker phone and myself. Last evening patient had another cardiac arrest. At that time mom witnessed event and did not want him to go through CPR again and requested DNR. Unfortunately because he resides in an [facility] residential facility, the facility and [facility] have to agree with this decision. Mom does not want him to suffer any more and is requesting DNR and extubation and to allow to keep him comfortable. Dr. Lin and I agree with her decision. DNR can be put in place now. My understanding is that extubation has to wait 48 hours before it can be done. Recommend once extubation is approved by [facility] and [facility] to allow this with comfort measures and pleasures feeds. Per mom he loves his starbucks coffee. If he is alert enough, would recommend this as well.
[2017-03-08] MEDS: LORazepam INJ* 2 MG/ML 1 ML VIAL IV PUSH PRN (22:25)
[2017-03-09] MEDS: Chlorhexidine MOUTHWASH 0.12%* 15 ML UDC TOPICAL SCH ×6 (00:36→19:48)
[2017-03-09] MEDS: CMCS: Melatonin (NF) 3 MG TAB PO PRN (02:10)
[2017-03-09] MEDS: ZOSYN 3.375 GM Q8H per EXTENDED INFUSION IVPB SCH ×6 (04:13→19:51)
[2017-03-09] MEDS: LORazepam INJ* 2 MG/ML 1 ML VIAL IV PUSH PRN ×4 (04:14→21:20)
[2017-03-09 06:43] LABS: Hematocrit 30 % (42-52); Hemoglobin 10.1 g/dl (14.0-18.0); Mean Corpuscular HGB Conc 34 g/dl (31-36); Mean Corpuscular Hemoglobin 34 pg (27-31); Mean Corpuscular Volume 100 fL (80-94); Mean Platelet Volume 7 um3 (7.4-10.4); Red Blood Count 2.99 10^6/ul (4.0-5.4); Red Cell Distribution Width 14 % (10.5-15); White Blood Count 7.1 10^3/ul (3.5-10.8)
[2017-03-09 07:03] LABS: BUN/Creatinine Ratio 38.5 (8-20); Blood Urea Nitrogen 15 mg/dL (6-24); CO2 Carbon Dioxide 27 mmol/L (22-32); Calcium 7.9 mg/dL (8.6-10.3); Chloride 104 mmol/L (101-111); EGFR Non-African American 231.7 (>60); Glucose 89 mg/dL (70-100); Sodium 138 mmol/L (133-145)
[2017-03-09 08:02] LABS: Anion Gap 7 mmol/L (2-11)
[2017-03-09] MEDS: Lansoprazole SOLUTAB* 30 MG G TUBE SCH (09:23)
[2017-03-09] MEDS: Docusate LIQ* 100 MG/10 ML UDC PO SCH ×2 (09:23→19:48)
[2017-03-09] MEDS: carBAMazepine LIQ(*) 100 MG/5 ML UDC (10 ML) PO SCH ×3 (09:24→19:48)
--- NOTE | 2017-03-09 11:45 | PN ---
Critical Care Services: Patient had an uneventful evening. This AM is awake, and does not appear to be uncomfortable. Vital Signs: Temp Pulse Resp BP SpO2 FiO2 99.0 F 56 18 161/65 94 70 Physical Exam: Gen:awake but does not respond to commands. Lungs:scattered rhonchi Extremities:No cyanosis Fluid Balance (Past 24 Hours): 03/09/17 06:59 Intake Total 726 Output Total 805 Balance -79 Weight 195 lb 9 oz Intake: IV Fluids 77 ABX D5 1/2NS NS 77 IVPB 349 ABX D5 1/2NS NS 349 Medicated IV Precedex Oral 0 Tube Feeding Flush Amount 300 Output: NG Tube Drainage Amount 305 Mccartney 500 Other: Estimated Void # Bowel Movements 0 Estimated Stool Amount Labs: 03/09/17 03/09/17 05:45 05:45 WBC 7.1 Hgb 10.1 Hct 30 Plt Count 276 Sodium 138 Potassium TNP Chloride 104 Carbon Dioxide 27 Anion Gap 7 BUN 15 Creatinine 0.39 Glucose 89 Calcium 7.9 Studies: None today. Nutrition: Tube feedings. Impression: Clinically stable at this time. No cardiac arrests for past 36 hrs. Plan: Await decision about removing ventilatory support.
[2017-03-10] MEDS: Chlorhexidine MOUTHWASH 0.12%* 15 ML UDC TOPICAL SCH ×4 (00:04→11:44)
[2017-03-10] MEDS: LORazepam INJ* 2 MG/ML 1 ML VIAL IV PUSH PRN ×2 (01:57→09:27)
[2017-03-10] MEDS: ZOSYN 3.375 GM Q8H per EXTENDED INFUSION IVPB SCH ×4 (03:40→11:44)
[2017-03-10] MEDS: Morphine INJ* 2 MG/ML 1 ML SYRINGE IV PRN ×2 (05:19→09:27)
[2017-03-10] MEDS: Dexmedetomidine* 200 MCG in NS 0.9% 50 ML* 48 ML IVPB SCH (07:19)
[2017-03-10] MEDS: carBAMazepine LIQ(*) 100 MG/5 ML UDC (10 ML) PO SCH ×2 (08:10→14:20)
[2017-03-10] MEDS: Lansoprazole SOLUTAB* 30 MG G TUBE SCH (08:10)
[2017-03-10] MEDS: Docusate LIQ* 100 MG/10 ML UDC PO SCH (08:10)
[2017-03-10] MEDS ORDERED: Morphine INJ* 10 MG/ML 1 ML SYRINGE IV ONE (15:00)
[2017-03-10] MEDS ORDERED: LORazepam INJ* 2 MG/ML 1 ML VIAL IV PUSH ONE (15:00)
[2017-03-10] MEDS ORDERED: Morphine PCA 5 MG/ML * Titrate per Protocol PCA SCH (15:00)
[2017-03-10] MEDS ORDERED: LORazepam VIAL (for drip)* 100 MG in D5W 50 ML BAG* 50 ML IVPB SCH (15:00)
[2017-03-10 15:11] VITALS: BP 111/54
[2017-03-10] MEDS ORDERED: Atropine 1% (ORAL/SL)* 15 ML BTL SL PRN (16:27)
--- NOTE | 2017-03-11 15:03 | DS ---
SUMMARY: DATE OF ADMISSION: 02/19/17 DATE OF DEMISE: 03/10/17 HOSPITAL COURSE: This patient is a 51-year-old developmentally disabled male, who is a resident of [facility], and has a history of congenital hydrocephalus and intractable seizures, and was admitted to this hospital with aspiration pneumonia and increasing shortness of breath. The patient required intubation and mechanical ventilation and, during the hospitalization, had multiple episodes of asystolic cardiac arrest, each time successfully resuscitated. There was no evidence of acute ischemic cardiac injury. The patient also had recurrent episodes of aspiration,requiring prolonged mechanical ventilation. Because of a combination of the recurrent cardiac arrest and recurrent aspiration pneumonia, it was decided, after meeting with the patient's parents and the [facility] staff, to make the patient a DNR and to remove mechanical ventilation and allow the patient to breathe spontaneously (and not unnecessarily prolong the patient's suffering). The patient was subsequently extubated on 03/10/17, placed on a morphine and Ativan infusion for comfort and approximately 1-1/2 hours after extubation, the patient developed asystole and was pronounced at 4:44 p.m. on . The patient's parents were present at the bedside. An autopsy will not be performed. FINAL DIAGNOSES: 1. Recurrent aspiration pneumonia with persistent respiratory failure. 2. Recurrent asystolic cardiac arrest. 3. History of intractable seizures. 4. Congenital hydrocephalus. 5. Mental retardation. [id number] #: [id number] MTDD
== END 2017-03-10 16:44 | disposition expired | DRG 207 ==
LOC: ED 17:50 → MED 20:01 → OBSVTOIN 02-20 13:52 → ICU 02-22 15:06
PROVIDERS: ADMIT Hospitalist; ATTEND Internal Medicine Critical Care Medicine
PROC: 4A00X4Z Measurement of Central Nervous Electrical Activity, External Approach (ICD-10-PCS; 2017-02-21)
PROC: 0W993ZZ Drainage of Right Pleural Cavity, Percutaneous Approach (ICD-10-PCS; 2017-02-22)
PROC: 0BH17EZ Insertion of Endotracheal Airway into Trachea, Via Natural or Artificial Opening (ICD-10-PCS; 2017-02-22)
PROC: 5A1935Z Respiratory Ventilation, Less than 24 Consecutive Hours (ICD-10-PCS; 2017-02-22)
PROC: 5A09357 Assistance with Respiratory Ventilation, Less than 24 Consecutive Hours, Continuous Positive Airway Pressure (ICD-10-PCS; 2017-02-23)
PROC: 0BH17EZ Insertion of Endotracheal Airway into Trachea, Via Natural or Artificial Opening (ICD-10-PCS; principal; 2017-02-24)
PROC: 5A1955Z Respiratory Ventilation, Greater than 96 Consecutive Hours (ICD-10-PCS; 2017-02-24)
PROC: 0DH67UZ Insertion of Feeding Device into Stomach, Via Natural or Artificial Opening (ICD-10-PCS; 2017-02-24)
PROC: 5A12012 Performance of Cardiac Output, Single, Manual (ICD-10-PCS; 2017-02-24)
PROC: 3E0G76Z Introduction of Nutritional Substance into Upper GI, Via Natural or Artificial Opening (ICD-10-PCS; 2017-02-24)
PROC: 5A12012 Performance of Cardiac Output, Single, Manual (ICD-10-PCS; 2017-03-04)
DX: J39.8 Other specified diseases of upper respiratory tract (principal); J96.01 Acute respiratory failure with hypoxia; J69.0 Pneumonitis due to inhalation of food and vomit; J96.02 Acute respiratory failure with hypercapnia; J91.8 Pleural effusion in other conditions classified elsewhere; F73 Profound intellectual disabilities; I95.9 Hypotension, unspecified; I46.9 Cardiac arrest, cause unspecified; G40.909 Epilepsy, unspecified, not intractable, without status epilepticus; E66.3 Overweight; I10 Essential (primary) hypertension; R00.1 Bradycardia, unspecified; Z66 Do not resuscitate; Z51.5 Encounter for palliative care; Z98.2 Presence of cerebrospinal fluid drainage device; Z82.49 Family history of ischemic heart disease and other diseases of the circulatory system; Z68.36 Body mass index [BMI] 36.0-36.9, adult; Z88.1 Allergy status to other antibiotic agents; Q02 Microcephaly; Q03.9 Congenital hydrocephalus, unspecified
CPT/HCPCS: 32555; 36415; 36600; 70250; 70450; 70490; 71010; 71250; 72020; 74000; 76705; 80048; 80053; 80076; 80156; 81003; 81015; 82140; 82533; 82550; 82803; 82945; 83605; 83615; 83735; 83880; 84100; 84157; 84443; 84484; 85025; 85027; 86140; 87040; 87086; 87205; 87641; 87899; 89051; 92950; 93005; 93306; 94002; 94003; 94640; 94660; 94760; 95816; A9270-GY; C8929; G0378; J0171; J0456; J0461; J0696; J1120; J1644; J1940; J2060; J2250; J2270; J2543; J2704; J2997; J3010; J3480